=== PATIENT | female | born 1960 ===

== ENCOUNTER 2020-05-10 17:02 | Outpatient (REF) | payer OTHER, MEDICAID, SELFPAY | END 2020-05-10 17:03 | disposition home or self-care (01) | LOC: HO.LAB 17:02 | PROVIDERS: Visit Provider Internal Medicine | DX: Z20.828 Contact with and (suspected) exposure to other viral communicable diseases (principal) | CPT/HCPCS: 87635 ==

== ENCOUNTER 2020-10-14 10:05 | Outpatient (REF) | payer OTHER, MEDICAID, SELFPAY ==
--- NOTE | ~2020-10-14 | XR_ITS ---
EXAMINATION: XR KNEE, LEFT TWO-VIEW XR KNEE, RIGHT TWO-VIEW CLINICAL INFORMATION: Pain. COMPARISON: 07/20/2013 left knee. TECHNIQUE: AP and lateral views of each knee. FINDINGS: LEFT KNEE: Upright AP and lateral views of the left knee performed. The left knee joint spaces are maintained. No significant spurring is seen about the medial or lateral joint space compartments. There is mild spurring undersurface of the patella. No left knee effusion is seen. There are spurs about the patellar sites of insertion of Achilles and patellar tendons. No destructive bony lesions. RIGHT KNEE: AP and lateral views of the right knee do not demonstrate any evidence of acute fracture or dislocation. Joint spaces are maintained. No effusion is seen. Patellar spurs sites of insertion of quadriceps and patellar tendons present. XR/XR knee LT 2V IMPRESSION: Mild left knee patellofemoral degenerative change. No significant bony abnormality of the right knee. No knee effusions.
--- NOTE | ~2020-10-14 | XR_ITS ---
EXAMINATION: XR KNEE, LEFT TWO-VIEW XR KNEE, RIGHT TWO-VIEW CLINICAL INFORMATION: Pain. COMPARISON: 07/20/2013 left knee. TECHNIQUE: AP and lateral views of each knee. FINDINGS: LEFT KNEE: Upright AP and lateral views of the left knee performed. The left knee joint spaces are maintained. No significant spurring is seen about the medial or lateral joint space compartments. There is mild spurring undersurface of the patella. No left knee effusion is seen. There are spurs about the patellar sites of insertion of Achilles and patellar tendons. No destructive bony lesions. RIGHT KNEE: AP and lateral views of the right knee do not demonstrate any evidence of acute fracture or dislocation. Joint spaces are maintained. No effusion is seen. Patellar spurs sites of insertion of quadriceps and patellar tendons present. XR/XR knee RT 2V IMPRESSION: Mild left knee patellofemoral degenerative change. No significant bony abnormality of the right knee. No knee effusions.
[2020-10-14 10:42] LABS: MANUAL DIFF FLAG NO
[2020-10-14 10:49] LABS: Basophils Absolute Auto 0.1 X10*3/uL (0.0-0.2); Basophils Percent Auto 0.7 % (0-2); Eosinophils Absolute Auto 0.2 X10*3/uL (0.0-0.4); Eosinophils Percent Auto 2.3 % (0-4); Hematocrit 41.3 % (37-47); Hemoglobin 13.7 g/dl (12.0-16.0); Imm Gran Abs Auto 0.02 X10*3/uL (0.00-0.03); Imm Gran Pct Auto 0.3 % (0.0-0.4); Lymphocytes Absolute Auto 2.7 X10*3/uL (1.2-4.9); Lymphocytes Percent Auto 38.7 % (20-40); Mean Corpuscular HGB Conc 33.2 g/dl (31.0-35.0); Mean Corpuscular Hemoglobin 29.8 pg (27.0-33.0); Mean Corpuscular Volume 89.8 fL (80-98); Mean Platelet Volume 11.4 fL (9.4-12.3); Monocytes Absolute Auto 0.4 X10*3/uL (0.1-1.2); Monocytes Percent Auto 5.7 % (2-11); Neutrophils Absolute Auto 3.7 X10*3/uL (2.0-8.3); Neutrophils Percent Auto 52.3 % (45-73); Platelet Count 384 X10*3/uL (160-400); Red Cell Distribution Width 12.2 % (11.0-16.0)
[2020-10-14 11:15] LABS: Alanine Aminotransferase 7 U/L (0-31); Albumin Level 4.5 g/dL (3.5-5.0); Alkaline Phosphatase 129 U/L (39-117); Anion Gap 15 (12-20); Aspartate Amino Transferase 15 U/L (5-31); Bilirubin Total 0.3 mg/dL (0.0-1.0); Blood Urea Nitrogen 14 mg/dL (9-16); Calcium 9.7 mg/dL (8.4-10.2); Carbon Dioxide 25 mmol/L (22-29); Chloride 106 mmol/L (96-108); Cholesterol 215 mg/dL; Estimated Glomerular Filt Rate > 60; Glucose Random 111 mg/dL (60-115); HDL Cholesterol 63 mg/dL; LDL Cholesterol Calculated 125 mg/dl; Potassium 4.1 mmol/L (3.3-5.1); Sodium 142 mmol/L (135-145); Total Protein 7.3 g/dL (6.5-8.0); Triglycerides 135 mg/dL
[2020-10-14 11:37] LABS: Free T4 (Free Thyroxine) 1.08 ng/dL (0.71-1.85); Thyroid Stimulating Hormone 1.66 uIU/mL (0.32-4.0); Vitamin D 25-OH Total 15.6 ng/mL (>30)
[2020-10-14 12:01] LABS: Folate 17.1 ng/mL (> or = 4.0); Vitamin B12 428 pg/mL (200-900)
== END 2020-10-14 10:06 | disposition home or self-care (01) ==
LOC: HO.LAB 10:05
PROVIDERS: PCP Internal Medicine; Visit Provider Internal Medicine
DX: M25.561 Pain in right knee (principal); M25.562 Pain in left knee; I10 Essential (primary) hypertension; E78.00 Pure hypercholesterolemia, unspecified
CPT/HCPCS: 36415; 73560; 80053; 80061; 82306; 82607; 82746; 84439; 84443; 85025

== ENCOUNTER 2020-10-17 10:31 | Outpatient (REF) | payer OTHER, MEDICAID, SELFPAY ==
--- NOTE | ~2020-10-17 | MM_ITS ---
EXAMINATION: MM SCREENING DIGITAL BREAST TOMOSYNTHESIS, BILATERAL CLINICAL INFORMATION: Screening. Asymptomatic. Prior history benign left breast surgery 1999. The lifetime risk of breast cancer based on the Tyrer-Cuzick Model is 7%. COMPARISON: Outside mammography 10/03/2018, 06/17/2015, 06/11/2014 ([place]) TECHNIQUE: Digital breast tomosynthesis is performed in both the craniocaudal and mediolateral oblique views along with computer-aided detection (CAD). Synthesized 2D images are generated from the tomosynthesis. FINDINGS: There are scattered areas of fibroglandular density (ACR BI-RADS breast composition Category b). There are no significant masses, abnormal calcifications, or other abnormalities. Parenchymal pattern is similar to prior outside study. No developing density. MM/MM tomosynthesis screening BI IMPRESSION: No mammographic evidence of malignancy. ASSESSMENT: BI-RADS 1: Negative RECOMMENDATION: Routine annual mammography screening. This patient's information was entered into a reminder system with a target due date for their next mammogram.
== END 2020-10-17 10:32 | disposition home or self-care (01) ==
LOC: HO.MAMMO 10:31
PROVIDERS: Visit Provider Internal Medicine
DX: Z12.31 Encounter for screening mammogram for malignant neoplasm of breast (principal)
CPT/HCPCS: 77063; 77067

== ENCOUNTER → 2021-02-28 11:48 | Outpatient (BNVA) | payer OTHER, MEDICAID, SELFPAY | PROVIDERS: PCP Internal Medicine; Visit Provider Dietitian, Registered ==

== ENCOUNTER 2021-03-12 15:56 | Outpatient (REF) | payer OTHER, MEDICAID, SELFPAY ==
--- NOTE | ~2021-03-12 | MR_ITS ---
EXAMINATION: MR KNEE WITHOUT CONTRAST, RIGHT CLINICAL INFORMATION: Right knee pain. COMPARISON: Radiograph dated 10/14/2020. TECHNIQUE: MRI of the knee without contrast was performed using routine sequences on a high-field scanner. FINDINGS: MENISCI: Medial Meniscus: There is minimal degenerative intrasubstance signal in the medial meniscus. No tears. Lateral Meniscus: Intact. LIGAMENTS: Cruciate: Intact. Collateral: Intact. EXTENSOR MECHANISM: Patellar enthesopathic spurs are present at the quadriceps tendon insertion and patellar tendon origin. No tendinosis. Quadriceps and patellar tendons are intact. ARTICULAR CARTILAGE/BONE: Patellofemoral Compartment: Small chondral fissures are present at the medial patellar and medial trochlear facets. No significant subchondral edema. Articular cartilage is otherwise well preserved. Medial Compartment: Normal. Lateral Compartment: Normal. JOINT FLUID AND BURSAE: No joint effusion. Small López's cyst. No loose bodies. No bursitis. MR/MR knee RT wo con IMPRESSION: 1. Minimal degenerative intrasubstance signal in the medial meniscus. No tears. 2. Small chondral fissures at the medial facets of the patellofemoral compartment. Articular cartilage is otherwise well preserved. 3. Intact ligaments. 4. Small López's cyst.
== END 2021-03-12 15:57 | disposition home or self-care (01) ==
LOC: HO.MRI 15:56
PROVIDERS: PCP Internal Medicine; Visit Provider Internal Medicine
DX: G89.29 Other chronic pain (principal); M25.561 Pain in right knee; M25.562 Pain in left knee
CPT/HCPCS: 73721

== ENCOUNTER → 2021-03-21 08:49 | Outpatient (BNVA) | payer OTHER, MEDICAID, SELFPAY | PROVIDERS: PCP Internal Medicine; Visit Provider Physician Assistant ==

== ENCOUNTER 2021-03-27 11:15 | Outpatient (REF) | payer OTHER, MEDICAID, SELFPAY | END 2021-03-27 11:16 | disposition home or self-care (01) | LOC: HO.LAB 11:15 | PROVIDERS: PCP Internal Medicine; Visit Provider Internal Medicine | DX: Z20.822 Contact with and (suspected) exposure to COVID-19 (principal) | CPT/HCPCS: C9803; U0003; U0005 ==

== ENCOUNTER → 2021-03-31 09:55 | Outpatient (BNVA) | payer OTHER, MEDICAID, SELFPAY | PROVIDERS: PCP Internal Medicine; Visit Provider Orthopaedic Surgery | DX: M65.331 Trigger finger, right middle finger (principal); R20.0 Anesthesia of skin; R20.2 Paresthesia of skin | CPT/HCPCS: 20550; J1100 ==

== ENCOUNTER → 2021-04-01 15:23 | Outpatient (BNVA) | payer OTHER, MEDICAID, SELFPAY | PROVIDERS: PCP Internal Medicine; Visit Provider Surgery Vascular Surgery ==

== ENCOUNTER → 2021-04-14 13:22 | Outpatient (BNVA) | payer OTHER, MEDICAID, SELFPAY | PROVIDERS: PCP Internal Medicine; Visit Provider Dietitian, Registered | DX: E66.9 Obesity, unspecified (principal); Z68.34 Body mass index [BMI] 34.0-34.9, adult | CPT/HCPCS: 97802 ==

== ENCOUNTER 2021-05-01 14:00 | Outpatient (RCR) | payer OTHER, MEDICAID, SELFPAY ==
--- NOTE | 2021-04-16 15:15 | MHC.PT.EP ---
[facility] [place] Office [place] Office [place] Office [address] Phil Lucio [address] [phone] F: [phone] F: [phone] F: [phone] F: [phone] Physical Therapy Plan of Care Date of Evaluation: Date of Surgery: Diagnosis: OSTEOARTHRITIS RIGHT KNEE Assessment: 60 YO FEMALE REF TO PT FOR Rt KNEE OA- OBJECTIVE FINDINGS INCLUDE : LIMITED ROM IN Rt KNEE, DECR STRENGTH IN ADDI LEs, (+) PF DYSF; AND PAIN IN MED/ LAT KNEE Jt LINE. FUNCTIONAL LIMITATIONS INCLUDE DIFFIC W STAIR MGMT, LIMITED STANDING ZACARIAS, WALKING LIMITED TO SORT DISTANCES. Pt IS PART OF [facility] [place] MGMT PROGRAM AND HAS BEEN UNABLE TO ADV W FITNESS PORTION OF EXER. Frequency and Duration: The patient will be seen 2x WK x 4 WKS Short Term Goals: --Pt'S Rt KNEE PAIN DECR TO 2-3/10 W REG ADLs IN 2 WKS --Pt DEMON IMPROVED STAIR MGMT TECHN IN 2 WKS --Pt DEMON IMPROVED AROM Rt KNEE IN 1 WK Residential Goals: --Pt DEMON WFL FUNCT SQUAT AND 2:2 SIMUL HOUSE CHORES W DECENT TECHN IN 4 WKS --Pt INDEP W HEP AND SX MGMT TECHN FOR Rt KNEE IN 4 WKS --Pt DEMON IMPROVED ACTIVITY ZACARIAS AND INITIATE A FITNESS WALKING/ TREADMILL PROGRAM EVIDENT W IMRPOVED LEFT BY AT LEAST 10 POINTS IN 4 WKS Treatment Plan: Modalities to reduce pain, spasms and effusion. Manual therapy to restore motion and function. Therapeutic exercise to improve strength and flexibility. Neuromuscular re-education for posture and balance. Therapeutic activities to return to functional activities of daily living. Electronically signed by: Maribell Lopes,PT Please sign and return to therapist. Thank you for your referral.
--- NOTE | 2021-06-03 08:37 | MHC.PT.DC ---
[facility] [place] Office [place] Office [place] Office [address] Phil Lucio 140 [facility] [phone] F: [phone] F: [phone] F: [phone] F: [phone] Physical Therapy Discharge Report Diagnosis: OSTEOARTHRITIS RIGHT KNEE Date of Surgery: Date of Evaluation: 04/16/21 Date of Discharge: 06/03/21 Treatments to Date: 2 Cancellations to Date: 0 No Shows to Date: 0 Discharge Status: Achieved Goals Improved Function Patient Elected to Stop Discharge Summary: Pt HAS A THOROUGH HEP TO ADDRESS STRENGTH, STABILITY, AND PROPRIOCEPTION IN RIGHT LE- SHE D/C HERSELF DUE TO [place]ING [place]- ENCOURAGED Pt TO REMAIN COMPLIANT W HEP AND ENHANCE HER SELF- SX MANAGEMENT. SHE MET HER PT GOALS TO MAX POTENTIAL AT THIS TIME. Electronically signed by: Maribell Lopes,PT Please sign and return to therapist. Thank you for your referral.
== END 2021-06-03 08:39 | disposition home or self-care (01) ==
LOC: HO.PT 14:00
PROVIDERS: PCP Internal Medicine; Visit Provider Physician Assistant
DX: M17.11 Unilateral primary osteoarthritis, right knee (principal)
CPT/HCPCS: 97110; 97140; 97162

== ENCOUNTER 2021-05-06 10:23 | Outpatient (REF) | payer OTHER, MEDICAID, SELFPAY ==
--- NOTE | ~2021-05-06 | US_ITS ---
EXAMINATION: BILATERAL LOWER EXTREMITY VENOUS ULTRASOUND (Reflux Exam) CLINICAL INDICATION: This is a 60-year-old female with venous insufficiency and varicose veins. COMPARISON: None. TECHNIQUE: Color flow triplex imaging and compression Doppler was performed to evaluate both the deep and the superficial systems bilaterally. To evaluate the superficial system, the examination was performed in the upright position. Color-flow Doppler ultrasound and compression ultrasound were utilized. In addition, maneuvers were utilized to demonstrate reflux. FINDINGS: 1. DEEP VENOUS ULTRASOUND OF THE RIGHT LOWER EXTREMITY: Common Femoral Vein: Compressible, normal respiratory variation and augmented flow. Femoral vein: Compressible, normal color flow and augmentation. Popliteal Vein: Compressible, normal augmentation. Deep Reflux: There is no evidence of reflux in the deep system in either the common femoral vein or the popliteal vein. . There is no evidence of a López's cyst. 2. SUPERFICIAL ULTRASOUND WITH DOPPLER OF RIGHT LOWER EXTREMITY GREAT SAPHENOUS VEIN: Saphenofemoral junction: 0.5 cm. There is no reflux at the junction. Mid thigh: 0.3 cm. The reflux time is 3152 ms. Above knee: 0.2 cm. There is no reflux. Below knee: 0.2 cm. The reflux time is 1140 ms. Mid calf: 0.2 cm there is no reflux at this level and below. Ankle: 0.2 cm GSV REFLUX: There is isolated reflux in the proximal and mid thigh, respectively. There is also isolated reflux below the knee that is isolated. DUPLICATED GREAT SAPHENOUS VEIN: There is a 0.4 cm duplicated right lateral great saphenous vein without reflux. SMALL SAPHENOUS VEIN: Upper: 0.4 cm Lower: 0.2 cm SSV REFLUX: No evidence of reflux. VEIN OF GIACOMINI: None Imaged. PERFORATORS: There is a 0.1 cm mid calf exhibit builder without reflux. VARICOSITIES: There are 0.5 cm mid thigh varicose veins with reflux time of 3212 ms. 3. DEEP VENOUS ULTRASOUND OF THE LEFT LOWER EXTREMITY: Common Femoral Vein: Compressible, normal respiratory variation and augmented flow. Femoral vein: Compressible, normal color flow and augmentation. Popliteal Vein: Compressible, normal augmentation. Deep Reflux: There is no evidence of reflux in the deep system in either the common femoral vein or the popliteal vein. There is no evidence of a López's cyst. 4. SUPERFICIAL ULTRASOUND WITH DOPPLER OF LEFT LOWER EXTREMITY GREAT SAPHENOUS VEIN: Saphenofemoral junction: 0.5 cm Mid thigh: 0.3 cm Above knee: 0.2 cm Below knee: 0.1 cm Mid calf: 0.2 cm Ankle: 0.2 cm GSV REFLUX: No evidence of reflux. DUPLICATED GREAT SAPHENOUS VEIN: There is a 0.4 cm duplicated lateral great saphenous vein without evidence of reflux. SMALL SAPHENOUS VEIN: Upper: 0.2 cm Lower: 0.2 cm SSV REFLUX: No evidence of reflux. VEIN OF GIACOMINI: None Imaged. PERFORATORS: None Imaged VARICOSITIES: None Imaged US/US venous duplex LE BI IMPRESSION: 1. There is a patent right great saphenous vein with isolated reflux in the proximal thigh and mid thigh but not reflux at the junction. 2. There is a patent duplicated right lateral great saphenous vein without reflux. 3. There is a patent right small saphenous vein without evidence of reflux. 4. There are right mid thigh varicose veins measuring 0.5 cm with reflux. 5. There is a patent left great saphenous vein without evidence of reflux. 6. There is a patent duplicated left lateral great saphenous vein without reflux. 7. There is a patent left small saphenous vein without evidence of reflux.
== END 2021-05-06 10:24 | disposition home or self-care (01) ==
LOC: HO.US 10:23
PROVIDERS: PCP Internal Medicine; Visit Provider Surgery Vascular Surgery
DX: I83.893 Varicose veins of bilateral lower extremities with other complications (principal); I83.11 Varicose veins of right lower extremity with inflammation
CPT/HCPCS: 93970

== ENCOUNTER → 2021-05-29 14:03 | Outpatient (BNVA) | payer OTHER, MEDICAID, SELFPAY | PROVIDERS: PCP Internal Medicine; Visit Provider Surgery Vascular Surgery ==

== ENCOUNTER 2021-06-04 10:03 | Outpatient (REF) | payer OTHER, MEDICAID, SELFPAY ==
--- NOTE | 2021-06-04 10:06 | EMG_ITS ---
This is a 60-year-old woman with right upper extremity pain and numbness. PHYSICAL EXAMINATION: On examination, she is alert and oriented with normal intellectual functions. Cranial nerves II through XII are normal. Muscle tone and strength are normal in all 4 extremities. Deep tendon reflexes symmetrical. No Tinel or Phalen sign. IMPRESSION: Rule out carpal tunnel syndrome. Nerve conduction EMG study: Normal electrodiagnostic study of the right upper extremity with no evidence of carpal tunnel syndrome or nerve entrapment. Normal EMG of the right C5-T1 innervated muscles. MD JABIER Duran/MT / [id number]
== END 2021-06-04 10:04 | disposition home or self-care (01) ==
LOC: HO.NEURO 10:03
PROVIDERS: Visit Provider Orthopaedic Surgery
DX: R20.0 Anesthesia of skin (principal); R20.2 Paresthesia of skin; M65.331 Trigger finger, right middle finger
CPT/HCPCS: 95885; 95910

== ENCOUNTER 2021-06-10 11:53 | Outpatient (REF) | payer OTHER, MEDICAID, SELFPAY ==
[2021-06-11 11:52] LABS: H Pylori Breath Test Negative (Negative)
== END 2021-06-10 11:54 | disposition home or self-care (01) ==
LOC: HO.LNP 11:53
PROVIDERS: PCP Internal Medicine; Visit Provider Nurse Practitioner Family
DX: K21.9 Gastro-esophageal reflux disease without esophagitis (principal); K59.00 Constipation, unspecified; K58.9 Irritable bowel syndrome, unspecified; R20.0 Anesthesia of skin; R20.2 Paresthesia of skin; M79.641 Pain in right hand
CPT/HCPCS: 83013

== ENCOUNTER → 2021-06-16 13:58 | Outpatient (BNVA) | payer OTHER, MEDICAID, SELFPAY | PROVIDERS: PCP Internal Medicine; Visit Provider Dietitian, Registered | DX: E66.9 Obesity, unspecified (principal); Z68.34 Body mass index [BMI] 34.0-34.9, adult | CPT/HCPCS: 97803 ==

== ENCOUNTER → 2021-06-27 10:37 | Outpatient (BNVA) | payer OTHER, MEDICAID, SELFPAY | PROVIDERS: PCP Internal Medicine; Visit Provider Surgery Vascular Surgery | DX: I83.11 Varicose veins of right lower extremity with inflammation (principal) | CPT/HCPCS: 36482 ==

== ENCOUNTER 2021-06-30 14:31 | Outpatient (REF) | payer OTHER, MEDICAID, SELFPAY ==
--- NOTE | ~2021-06-30 | US_ITS ---
EXAMINATION: US VENOUS ULTRASOUND WITH DOPPLER LOWER EXTREMITY, RIGHT CLINICAL INFORMATION: Pain in right leg status post right GSP, Venaseal COMPARISON: None TECHNIQUE: Ultrasound of the deep veins is performed from the hip to the calf with compression sonography and color and pulse Doppler assessment. Spectral analysis with color-flow imaging is performed. FINDINGS: There is normal venous compression and respiratory variation and augmented flow. The visualized common femoral vein, superficial femoral vein, profunda femoral vein, popliteal vein, and the trifurcation region shows no evidence of deep venous thrombosis. There is no significant popliteal fossa cyst. There is thrombus visualized in the right greater saphenous vein status post venous radiofrequency ablation. The thrombus is 0.71 cm from the common femoral venous junction. If the patient's symptoms persist, followup ultrasound in 5 days 7 days might be of value to exclude proximal propagation from a non-visualized calf vein. US/US venous duplex LE RT IMPRESSION: No DVT demonstrated in the right lower extremity. There is thrombus visualized in the right greater saphenous vein status post radiofrequency ablation.
== END 2021-06-30 14:32 | disposition home or self-care (01) ==
LOC: HO.HMGCX 14:31
PROVIDERS: PCP Internal Medicine; Visit Provider Surgery Vascular Surgery
DX: M79.604 Pain in right leg (principal)
CPT/HCPCS: 93971

== ENCOUNTER 2021-07-08 12:33 | Outpatient (REF) | payer OTHER, MEDICAID, SELFPAY ==
--- NOTE | ~2021-07-08 | XR_ITS ---
EXAMINATION: XR FINGER, RIGHT CLINICAL INFORMATION: Right hand pain. COMPARISON: None. TECHNIQUE: PA view of the right hand and AP and oblique views of the right long finger. FINDINGS: No acute fracture or malalignment. There is mild osteoarthritis at the PIP joint with small marginal osteophytes. Joint space appears relatively well preserved. Soft tissues are unremarkable. More mild osteoarthritis is present at the other interphalangeal joints. Mild generalized bone demineralization. Soft tissues are unremarkable. XR/XR hand RT min 3V IMPRESSION: Mild osteoarthritis in the long finger DIP joint. No acute osseous findings.
== END 2021-07-08 12:34 | disposition home or self-care (01) ==
LOC: HO.HOSX 12:33
PROVIDERS: Visit Provider Orthopaedic Surgery
DX: M79.641 Pain in right hand (principal); I83.11 Varicose veins of right lower extremity with inflammation; F41.8 Other specified anxiety disorders; Z88.0 Allergy status to penicillin; Z88.8 Allergy status to other drugs, medicaments and biological substances
CPT/HCPCS: 73130

== ENCOUNTER → 2021-07-16 11:43 | Outpatient (BNVA) | payer OTHER, MEDICAID, SELFPAY | PROVIDERS: PCP Internal Medicine; Referring Provider Internal Medicine; Visit Provider Nurse Practitioner Family ==

== ENCOUNTER 2021-08-08 10:02 | Outpatient (REF) | payer OTHER, MEDICAID, SELFPAY ==
[2021-08-08 17:11] LABS: CT PCR NOT DETECTED (Not Detect.); NG PCR NOT DETECTED (Not Detect.)
[2021-08-14 05:51] LABS: HPV mRNA E6/E7 rflx Not Detected (Not Detected)
== END 2021-08-08 10:03 | disposition home or self-care (01) ==
LOC: HO.LAB 10:02
PROVIDERS: PCP Internal Medicine; Visit Provider Advanced Practice Midwife
DX: Z01.419 Encounter for gynecological examination (general) (routine) without abnormal findings (principal); Z11.51 Encounter for screening for human papillomavirus (HPV); Z11.3 Encounter for screening for infections with a predominantly sexual mode of transmission
CPT/HCPCS: 87491; 87591; 87624; 88142

== ENCOUNTER → 2021-09-30 14:26 | Outpatient (BNVA) | payer OTHER, MEDICAID, SELFPAY | PROVIDERS: PCP Internal Medicine; Visit Provider Dietitian, Registered | DX: E66.9 Obesity, unspecified (principal); Z71.3 Dietary counseling and surveillance | CPT/HCPCS: 97803 ==

== ENCOUNTER 2021-10-09 10:08 | Outpatient (REF) | payer OTHER, MEDICAID, SELFPAY ==
--- NOTE | ~2021-10-09 | US_ITS ---
EXAMINATION: US ABDOMEN COMPLETE CLINICAL INFORMATION: Elevated LFTs. COMPARISON: CT abdomen and pelvis 12/28/2011. X-ray abdomen KUB 12/21/2011. TECHNIQUE: Real-time imaging of the abdominal viscera. FINDINGS: PANCREAS: Not adequately delineated. No free fluid in the region. ABDOMINAL AORTA: The proximal, mid, and distal segments are normal in caliber. INFERIOR VENA CAVA: Visualized portions are normal. LIVER: The liver is normal in size. The liver contour is normal. Increased echogenicity overall may be consistent with fatty change. No focal hepatic lesion. There is no intrahepatic biliary duct dilatation seen. GALLBLADDER: Normal. The gallbladder is physiologically distended without evidence of stones, sludge, polyps, wall thickening or pericholecystic fluid. COMMON BILE DUCT: Normal in caliber measuring 0.4 cm in diameter. RIGHT KIDNEY: Normal. No hydronephrosis. No renal calculi or focal parenchymal lesions. The kidney measures 10.9 cm in maximum dimension. LEFT KIDNEY: Normal. No hydronephrosis. No renal calculi or focal parenchymal lesions. The kidney measures 11.6 cm in maximum dimension. SPLEEN: Normal. The spleen measures 8.8 cm in maximum dimension. FREE FLUID: None. US/US abdomen complete IMPRESSION: Liver is overall hyperechoic which may be consistent with fatty change. There is no evidence of cholelithiasis or cholecystitis. No free fluid.
[2021-10-09 11:06] LABS: MANUAL DIFF FLAG NO
[2021-10-09 11:34] LABS: Basophils Absolute Auto 0.1 X10*3/uL (0.0-0.2); Basophils Percent Auto 0.7 % (0-2); Eosinophils Absolute Auto 0.2 X10*3/uL (0.0-0.4); Eosinophils Percent Auto 2.1 % (0-4); Hematocrit 41.5 % (37.0-47.0); Hemoglobin 13.4 g/dl (12.0-16.0); Imm Gran Abs Auto 0.02 X10*3/uL (0.00-0.03); Imm Gran Pct Auto 0.3 % (0.0-0.4); Lymphocytes Absolute Auto 2.7 X10*3/uL (1.2-4.9); Lymphocytes Percent Auto 35.6 % (20-40); Mean Corpuscular HGB Conc 32.3 g/dl (31.0-35.0); Mean Corpuscular Hemoglobin 29.5 pg (27.0-33.0); Mean Corpuscular Volume 91.4 fL (80.0-98.0); Mean Platelet Volume 11.7 fL (9.4-12.3); Monocytes Absolute Auto 0.4 X10*3/uL (0.1-1.2); Monocytes Percent Auto 5.6 % (2-11); Neutrophils Absolute Auto 4.2 x10*3/uL (2.0-8.3); Neutrophils Percent Auto 55.7 % (45-73); Platelet Count 381 X10*3/uL (160-400); Red Blood Count 4.54 X10*6/uL (4.20-5.50); Red Cell Distribution Width 12.5 % (11.0-16.0); White Blood Count 7.6 X10*3/uL (4.8-10.8)
[2021-10-09 11:41] LABS: Estimated Average Glucose 126 mg/dL
[2021-10-09 11:51] LABS: Appearance Urine HAZY; Color Urine YELLOW; Glucose Urine UA NEG (NEG); Leukocyte Esterase Urine NEG (NEG); Nitrite Urine NEG (NEG); Urine Blood TRACE (NEG); Urine Ketones NEG (NEG); Urine Protein NEG (NEG-TRACE)
[2021-10-09 12:13] LABS: Bacteria Urine 2+ /LPF; Mucus Urine 1+ /LPF; RBC Urine 0 /HPF (0); Squamous Epithelial Cell Urine 2+ /LPF; WBC Urine 0 /HPF (0-4)
[2021-10-09 12:47] LABS: Folate 17.7 ng/mL (> or = 4.0); Vitamin B12 596 pg/mL (200-900)
[2021-10-09 14:08] LABS: Alanine Aminotransferase 7 U/L (0-31); Albumin Level 4.3 g/dL (3.5-5.0); Alkaline Phosphatase 120 U/L (39-117); Anion Gap 12 (12-20); Aspartate Amino Transferase 14 U/L (5-31); Bilirubin Total 0.5 mg/dL (0.0-1.0); Blood Urea Nitrogen 10 mg/dL (9-16); Calcium 10.1 mg/dL (8.4-10.2); Carbon Dioxide 25 mmol/L (22-29); Chloride 109 mmol/L (96-108); Cholesterol 190 mg/dL; Estimated Glomerular Filt Rate > 60; Glucose Random 106 mg/dL (60-115); HDL Cholesterol 56 mg/dL; LDL Cholesterol Calculated 110 mg/dl; Potassium 4.4 mmol/L (3.3-5.1); Sodium 142 mmol/L (135-145); Total Protein 7.1 g/dL (6.5-8.0); Triglycerides 121 mg/dL
[2021-10-09 14:37] LABS: Free T4 (Free Thyroxine) 1.08 ng/dL (0.71-1.85); Thyroid Stimulating Hormone 1.42 uIU/mL (0.32-4.0); Vitamin D 25-OH Total 15.2 ng/mL (>30)
== END 2021-10-09 10:09 | disposition home or self-care (01) ==
LOC: HO.US 10:08
PROVIDERS: PCP Internal Medicine; Visit Provider Internal Medicine
DX: R10.11 Right upper quadrant pain (principal); R79.89 Other specified abnormal findings of blood chemistry; E78.00 Pure hypercholesterolemia, unspecified; I10 Essential (primary) hypertension
CPT/HCPCS: 36415; 76700; 80053; 80061; 81001; 82306; 82607; 82746; 83036; 84439; 84443; 85025

== ENCOUNTER → 2021-10-14 13:02 | Outpatient (BNVA) | payer OTHER, MEDICAID, SELFPAY | PROVIDERS: PCP Internal Medicine; Visit Provider Surgery Vascular Surgery | DX: Z13.89 Encounter for screening for other disorder (principal) ==

== ENCOUNTER 2021-10-28 13:15 | Outpatient (REF) | payer OTHER, MEDICAID, SELFPAY ==
--- NOTE | ~2021-10-28 | MM_ITS ---
EXAMINATION: MM SCREENING DIGITAL BREAST TOMOSYNTHESIS, BILATERAL CLINICAL INFORMATION: Screening. Asymptomatic. Benign left breast surgery, 1999. The lifetime risk of breast cancer based on the Tyrer-Cuzick Model is 6%. COMPARISON: Mammography: 10/17/2020, 10/03/2018, 06/17/2015 TECHNIQUE: Digital breast tomosynthesis is performed in both the craniocaudal and mediolateral oblique views along with computer-aided detection (CAD). Synthesized 2D images are generated from the tomosynthesis. FINDINGS: There are scattered areas of fibroglandular density (ACR BI-RADS breast composition Category b). There are no significant masses, abnormal calcifications, or other abnormalities. There are scattered minor asymmetries similar to prior studies. There is fine fibronodular pattern similar to prior exams. No significant changes. MM/MM tomosynthesis screening BI IMPRESSION: No mammographic evidence of malignancy. ASSESSMENT: BI-RADS 2: Benign RECOMMENDATION: Routine annual mammography screening. This patient's information was entered into a reminder system with a target due date for their next mammogram.
== END 2021-10-28 13:16 | disposition home or self-care (01) ==
LOC: HO.MAMMO 13:15
PROVIDERS: PCP Internal Medicine; Visit Provider Internal Medicine
DX: Z12.31 Encounter for screening mammogram for malignant neoplasm of breast (principal)
CPT/HCPCS: 77063; 77067

== ENCOUNTER → 2021-11-07 10:33 | Outpatient (BNVA) | payer OTHER, MEDICAID, SELFPAY | PROVIDERS: PCP Internal Medicine; Visit Provider Surgery Vascular Surgery | DX: I83.11 Varicose veins of right lower extremity with inflammation (principal) | CPT/HCPCS: 37765 ==

== ENCOUNTER → 2021-11-20 15:12 | Outpatient (BNVA) | payer OTHER, MEDICAID, SELFPAY | PROVIDERS: PCP Internal Medicine; Visit Provider Surgery Vascular Surgery | DX: I83.11 Varicose veins of right lower extremity with inflammation (principal) ==

== ENCOUNTER 2021-12-12 10:29 | Outpatient (REF) | payer OTHER, MEDICAID, SELFPAY ==
[2021-12-12 11:03] LABS: COVID-19 Test Negative (Negative); IDNOW Serial# 08D9AD1C
== END 2021-12-12 10:30 | disposition home or self-care (01) ==
LOC: HO.LAB 10:29
PROVIDERS: Visit Provider Internal Medicine
DX: Z20.822 Contact with and (suspected) exposure to COVID-19 (principal)
CPT/HCPCS: 87635; C9803

== ENCOUNTER 2022-01-20 16:03 | Outpatient (REF) | payer OTHER, MEDICAID, SELFPAY ==
[2022-01-20 17:23] LABS: Lipase 20 U/L (8-78)
[2022-01-25 22:17] LABS: Alk.Phos Iso. Macrohepatic 0 % (<=0); Alk.Phos Isoenzymes Bone 59 % (28-66); Alk.Phos Isoenzymes Intest 0 % (1-24); Alk.Phos Isoenzymes Liver 41 % (25-69); Alk.Phos Isoenzymes Placental 0 % (<=0); Alk.Phos Isoenzymes Total 104 U/L (37-153)
== END 2022-01-20 16:04 | disposition home or self-care (01) ==
LOC: HO.LAB 16:03
PROVIDERS: PCP Internal Medicine; Visit Provider Nurse Practitioner Family
DX: R74.8 Abnormal levels of other serum enzymes (principal); R10.9 Unspecified abdominal pain
CPT/HCPCS: 36415; 83690; 84080

== ENCOUNTER 2022-03-03 12:03 | Emergency (ER) | payer OTHER, MEDICAID, SELFPAY ==
--- NOTE | ~2022-03-03 | XR_ITS ---
EXAMINATION: XR CHEST CLINICAL INFORMATION: Chest pain COMPARISON: None TECHNIQUE: 2 views of the chest were obtained. FINDINGS: No significant abnormality is noted involving the heart, lungs, mediastinum, bony thorax or soft tissues. XR/XR chest 2V IMPRESSION: Unremarkable examination.
[2022-03-03 12:13] VITALS: BP 143/84; PULSE 84; RESP 18; TEMP 36.3; O2SAT 98; BMI 34.0
[2022-03-03 12:37] LABS: Appearance Urine CLEAR; Color Urine YELLOW; Glucose Urine UA Negative (Negative); Leukocyte Esterase Urine Negative (Negative); Nitrite Urine Negative (Negative); PH 6.5 (5.0-8.0); Urine Blood Trace (Negative); Urine Ketones Negative (Negative); Urine Protein Negative (Neg-Trace)
[2022-03-03 12:52] VITALS: BP 128/62; PULSE 75; RESP 12; TEMP 36.6; O2SAT 99
[2022-03-03 12:52] LABS: RBC Urine 0-2 /HPF (0-2); Squamous Epithelial Cell Urine 0-2 /HPF; WBC Urine 0-5 /HPF (0-5)
[2022-03-03 12:56] LABS: Bacteria Urine Trace (None Seen); Hyaline Casts Urine 0-2 /LPF
--- NOTE | 2022-03-03 13:40 | ED_ITS ---
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 Patient denies any shortness of breath, cough, fevers, leg swelling or leg pain. Patient reports pain is worsened with deep breathing. Also some slight chest discomfort with no associated shortness of breath, nausea, diaphoresis, dizziness or palpitations. Patient denies any recent travel or sick contact. Patient has no history of PE or DVT. Patient is taking meloxicam with continued symptoms. Patient denies any incontinence of urine, weakness, numbness or tingling of the extremities. Related Data Home Medications Medication Instructions Recorded Confirmed brimonidine 0.2 % eye drops 1 drp ophthalmic (eye) Q12H 04/01/21 02/26/22 Previous Rx's Medication Instructions Recorded sumatriptan succinate 100 mg tablet 100 mg PO .COMPLEX PRN migraine 04/11/21 headache 30 days #14 tabs meloxicam 7.5 mg tablet 7.5 mg PO DAILY 90 days #90 tabs 08/15/21 budesonide-formoterol HFA 160 2 puff inhalation BID #10.2 grams 09/11/21 mcg-4.5 mcg/actuation aerosol inhaler (Symbicort) topiramate 50 mg tablet 50 mg PO BID 90 days #270 tabs 09/11/21 docusate sodium 100 mg capsule 100 mg PO BEDTIME #30 caps 10/28/21 famotidine 40 mg tablet 40 mg PO BEDTIME #30 tabs 12/01/21 omeprazole 40 mg capsule,delayed 40 mg PO DAILY #90 caps 12/01/21 release polyethylene glycol 3350 17 17 g PO DAILY PRN constipation 01/01/22 gram/dose oral powder (Gavilax) #510 grams bisacodyl 5 mg tablet,delayed 10 mg PO ONCE 1 day #2 tabs 01/20/22 release (Dulcolax (bisacodyl)) polyethylene glycol 3350 17 238 g PO ONCE #238 grams 01/20/22 gram/dose oral powder (Miralax) sennosides 8.6 mg tablet (Natural 17.2 mg PO BEDTIME constipation 01/20/22 Senna Laxative) #180 tabs albuterol sulfate 2.5 mg/3 mL 2.5 mg (3 mL) inhalation QID PRN 02/26/22 (0.083 %) solution for nebulization shortness of breath or wheezing #180 mL albuterol sulfate 90 mcg/actuation 2 inh PO Q4H PRN bronchospasm #8.5 02/26/22 aerosol inhaler (ProAir HFA) grams cholecalciferol (vitamin D3) 50 50 mcg PO DAILY #90 caps 02/26/22 mcg (2,000 unit) capsule montelukast 10 mg tablet 10 mg PO BEDTIME 90 days #90 tabs 02/26/22 cyclobenzaprine 10 mg tablet 10 mg PO TID PRN muscle spasm #10 03/03/22 tabs ketorolac 10 mg tablet 10 mg PO Q8H PRN pain #20 tabs 03/03/22 Allergies Allergy/AdvReac Type Severity Reaction Status Date / Time fluticasone [From Flonase] Allergy Unknown glaucoma Verified 03/03/22 12:12 suspect Penicillins [PENICILLINS] Allergy Unknown RASH Verified 03/03/22 12:12 Review of Systems Review of Systems: Yes all other systems are reviewed and are negative Constitutional: Constitutional: Reports no additional constitutional complaints, Denies body ache(s), Denies chills, Denies fever(s), Denies headache(s) and Denies weakness Eyes: Eyes: Reports no additional eye complaints and Denies change in vision ENT: Reports system reviewed and no additional complaints, except as documented, Denies dizziness, Denies headache(s), Denies nasal congestion, Denies nasal discharge and Denies neck pain Cardiovascular: Cardiovascular: Reports no additional cardiovascular complaints, Reports chest pain, Denies leg edema and Denies dyspnea Respiratory: Respiratory: Reports no additional respiratory complaints, Denies cough and Denies dyspnea Gastrointestinal: Gastrointestinal: Reports no additional gastrointestinal complaints, Denies abdominal pain, Denies diarrhea, Denies nausea and Denies vomiting Genitourinary: Genitourinary: Reports no additional female genitourinary complaints and Denies urinary incontinence Musculoskeletal: Musculoskeletal: Reports no additional musculoskeletal complaints, Reports back pain, Reports arthralgias, Denies joint swelling, Denies neck pain, Denies numbness, Reports radiating pain into limb and Denies tingling Integumentary/Breasts: Skin/Breast: Reports system reviewed and no additional complaints, except as docu and Denies rash Neurologic: Reports system reviewed and no additional complaints, except as documented, Denies dizziness, Denies headache(s), Denies numbness, Denies tingling and Denies weakness PMFSH Past Medical History Attestation statement: The following information was validated with the patient. Source: old records reviewed and nursing notes reviewed Medical History Anemia Asthma Chronic radicular low back pain GERD (gastroesophageal reflux disease) Glaucoma suspect History of right bundle branch block Hypertension Migraine Obesity (BMI 30-39.9) Vitamin D deficiency Surgical History History of cataract surgery History of section History of lumpectomy of left breast Family History Family History Father Stroke Hypertension Mother Bladder cancer CVD (cardiovascular disease) Maternal Grandfather Myocardial infarction Maternal Uncle Mouth cancer Paternal Aunt Brain cancer Maternal Aunt Myocardial infarction Other Anxiety Social History Social History Housing: House Alcohol intake: never Patient Tobacco Use Status: Never used Tobacco e-Cigarette/Vaping Use: Never Used Second Hand Smoke Exposure: No Advance Directives: No Advance Directives Information Provided: Yes service: No Current occupational status: unemployed Current occupational exposures/hazards: No Cognitive needs: No Hearing needs: No Vision needs: Yes Physical Exam ED Vital Signs: Vital Signs - 24 hr 03/03/22 12:13 03/03/22 12:52 Temperature 97.4 F 97.9 F Pulse Rate 84 75 Respiratory Rate 18 12 Blood Pressure 143/84 H 128/62 Pulse Oximetry 98 99 Oxygen Delivery Method Room Air Room Air BMI result Body Mass Index 34.0 Const General: cooperative, healthy appearing and comfortable Orientation/consciousness: patient oriented x3 Limitations: no limitations HENMT Head: Yes normal to inspection Ears: hearing grossly normal bilaterally Eyes General: appearance normal, both eyes and all related structures Pupils: Equal, round and reactive pupils present Neck Other: No cervical tenderness, step-offs deformities. Full range of motion Neck: Yes normal visual inspection, Yes full ROM and Yes no lymphadenopathy Chest Chest palpation & inspection: normal inspection of the chest Resp Effort & Inspection: normal respiratory effort Auscultation: clear to auscultation bilaterally Cardio Rate: regular rate Rhythm: regular rhythm Peripheral pulses: Peripheral pulses 2+ throughout GI Inspection: Yes normal to inspection Palpation (GI): Soft to palpation and nontender General: Yes no CVA tenderness Back/Spine/Pelvis Other: Diffuse tenderness throughout the spine and soft tissues bilaterally with no focal step-offs or deformities Back: no CVA tenderness Skin General skin exam: no rashes or lesions noted Neuro General: patient oriented x3 and moves all extremities Cranial nerves: Yes CN's II-XII intact bilaterally, Yes Equal, round and reactive pupils present, Yes Bilaterally intact EOM present, Yes Nystagmus not present, Yes Normal facial strength present and Yes Midline tongue present Cognition (Neuro): normal cognition Gait exam (Neuro): Normal gait present Motor exam (neuro): 5/5 motor strength present throughout Sensory Exam: Normal double simultaneous stimulation for sensation Deep tendon reflexes (DTR's): Right patellar reflex intensity grade: 2+ and Left patellar reflex intensity grade: 2+ Extrem General: Yes normal to inspection, Yes no pedal edema and Yes no calf tenderness Course Course Course Narrative: Labs show no acute finding. EKG shows no ischemic changes. Chest x-ray is negative for any abnormality. Patient feels improved Toradol. Pain is musculoskeletal. She can follow up outpatient with her primary care doctor for any persistent symptoms. Will discharge home with NSAID and low-dose muscle relaxant. Reviewed worrisome signs and symptoms when to return to the emergency department. Comfortable discharge home. Medical Decision Making MDM Narrative Medical decision making narrative: 61-year-old female who presents with 4 days of middle back pain with radiation to the left arm with no known injury or trauma. Patient also reports some chest discomfort and pain that is worsened with deep breathing. On exam patient has diffuse back pain. There are no focal midline tenderness or step-offs deformities. Her vitals are stable. Her lungs are clear. She has no clinical findings concerning for DVT. Will check EKG, labs, x-ray, provide analgesia and reassess -consider MS strain, ACS, PE -less likely ACS with symptoms for several days with negative troponin and EKG. Less likely PE with negative D-dimer, no tachypnea, no hypoxia, no clinical findings concerning for DVT. No neck pain or weakness to suggest cord compression or cervical cause. Medical Records Medical records reviewed: Yes I reviewed the patient's medical records. Lab Data Lab results reviewed: Yes I reviewed the patient's lab results. Result diagrams: 03/03/22 14:16 03/03/22 14:16 Labs: Lab Results 03/03/22 03/03/22 03/03/22 Range/Units 12:25 14:16 14:16 WBC 7.5 (4.8-10.8) X10*3/uL RBC 4.46 (4.20-5.50) X10*6/uL Hgb 12.9 (12.0-16.0) g/dl Hct 39.6 (37.0-47.0) % MCV 88.8 (80.0-98.0) fL MCH 28.9 (27.0-33.0) pg MCHC 32.6 (31.0-35.0) g/dl RDW 12.6 (11.0-16.0) % Plt Count 349 (160-400) X10*3/uL MPV 11.3 (9.4-12.3) fL Immature Gran % (Auto) 0.1 (0.0-0.4) % Neut % (Auto) 58.1 (45-73) % Lymph % (Auto) 32.6 (20-40) % [place] % (Auto) 6.4 (2-11) % Eos % (Auto) 2.1 (0-4) % Baso % (Auto) 0.7 (0-2) % Lymph # (Auto) 2.4 (1.2-4.9) X10*3/uL [place] # (Auto) 0.5 (0.1-1.2) X10*3/uL Eos # (Auto) 0.2 (0.0-0.4) X10*3/uL Baso # (Auto) 0.1 (0.0-0.2) X10*3/uL Abs Immat Gran (auto) 0.01 (0.00-0.03) X10*3/uL Absolute Neuts (auto) 4.3 (2.0-8.3) x10*3/uL Absolute Nucleated RBC 0.000 (0.0-0.012) X10*3/uL Nucleated RBC % (auto) 0.0 (0.0-0.2) /100WBC PT 11.3 (10.0-13.1) SEC INR 1.0 (0.9-1.1) D-Dimer High Sensitivty < 150 NG/ML Sodium (135-145) mmol/L Potassium (3.3-5.1) mmol/L Chloride (96-108) mmol/L Carbon Dioxide (22-29) mmol/L Anion Gap (12-20) BUN (9-16) mg/dL Creatinine (0.5-1.4) mg/dL Estim Creat Clear Calc Estimated GFR Random Glucose (60-115) mg/dL Calcium (8.4-10.2) mg/dL Total Bilirubin (0.0-1.0) mg/dL Direct Bilirubin (0.0-0.5) mg/dL AST (5-31) U/L ALT (0-31) U/L Alkaline Phosphatase (39-117) U/L Troponin I High Sens (<3.5-17.0) ng/L Total Protein (6.5-8.0) g/dL Albumin (3.5-5.0) g/dL Urine Color YELLOW Urine Appearance CLEAR Urine pH 6.5 (5.0-8.0) Ur Specific [place] 1.010 (1.005-1.025) Urine Protein Negative (Neg-Trace) mg/dL Urine Glucose (UA) Negative (Negative) mg/dL Urine Ketones Negative (Negative) mg/dL Urine Blood Trace (Negative) Urine Nitrite Negative (Negative) Ur Leukocyte Esterase Negative (Negative) Urine RBC 0-2 (0-2) /HPF Urine WBC 0-5 (0-5) /HPF Ur Squamous Epith Cells 0-2 /HPF Urine Bacteria Trace (None Seen) Hyaline Casts 0-2 /LPF 03/03/22 03/03/22 Range/Units 14:16 14:16 WBC (4.8-10.8) X10*3/uL RBC (4.20-5.50) X10*6/uL Hgb (12.0-16.0) g/dl Hct (37.0-47.0) % MCV (80.0-98.0) fL MCH (27.0-33.0) pg MCHC (31.0-35.0) g/dl RDW (11.0-16.0) % Plt Count (160-400) X10*3/uL MPV (9.4-12.3) fL Immature Gran % (Auto) (0.0-0.4) % Neut % (Auto) (45-73) % Lymph % (Auto) (20-40) % [place] % (Auto) (2-11) % Eos % (Auto) (0-4) % Baso % (Auto) (0-2) % Lymph # (Auto) (1.2-4.9) X10*3/uL [place] # (Auto) (0.1-1.2) X10*3/uL Eos # (Auto) (0.0-0.4) X10*3/uL Baso # (Auto) (0.0-0.2) X10*3/uL Abs Immat Gran (auto) (0.00-0.03) X10*3/uL Absolute Neuts (auto) (2.0-8.3) x10*3/uL Absolute Nucleated RBC (0.0-0.012) X10*3/uL Nucleated RBC % (auto) (0.0-0.2) /100WBC PT (10.0-13.1) SEC INR (0.9-1.1) D-Dimer High Sensitivty NG/ML Sodium 143 (135-145) mmol/L Potassium 4.1 (3.3-5.1) mmol/L Chloride 109 H (96-108) mmol/L Carbon Dioxide 24 (22-29) mmol/L Anion Gap 14 (12-20) BUN 8 L (9-16) mg/dL Creatinine 0.76 (0.5-1.4) mg/dL Estim Creat Clear Calc 74.0 Estimated GFR > 60 Random Glucose 97 (60-115) mg/dL Calcium 9.5 (8.4-10.2) mg/dL Total Bilirubin 0.3 (0.0-1.0) mg/dL Direct Bilirubin 0.2 (0.0-0.5) mg/dL AST 12 (5-31) U/L ALT < 6 (0-31) U/L Alkaline Phosphatase 113 (39-117) U/L Troponin I High Sens < 3.5 (<3.5-17.0) ng/L Total Protein 7.0 (6.5-8.0) g/dL Albumin 4.4 (3.5-5.0) g/dL Urine Color Urine Appearance Urine pH (5.0-8.0) Ur Specific [place] (1.005-1.025) Urine Protein (Neg-Trace) mg/dL Urine Glucose (UA) (Negative) mg/dL Urine Ketones (Negative) mg/dL Urine Blood (Negative) Urine Nitrite (Negative) Ur Leukocyte Esterase (Negative) Urine RBC (0-2) /HPF Urine WBC (0-5) /HPF Ur Squamous Epith Cells /HPF Urine Bacteria (None Seen) Hyaline Casts /LPF Imaging Data Chest x-ray: Attestation: I personally reviewed and interpreted this imaging study as follows: Radiologist's impression: [place] [id number] XRay Report Signed Patient: Camilla Golden MR#: [id number] : 1960 Acct:[id number] Age/Sex: 61 / F ADM Date: 03/03/22 Loc: .ED Attending Dr: Ordering Physician: Yissel Carrillo NP Date of Service: 03/03/22 Procedure(s): XR chest 2V Accession Number(s): [id number] cc: Yissel Carrillo NP~ EXAMINATION: XR CHEST CLINICAL INFORMATION: Chest pain COMPARISON: None TECHNIQUE: 2 views of the chest were obtained. FINDINGS: No significant abnormality is noted involving the heart, lungs, mediastinum, bony thorax or soft tissues. XR/XR chest 2V IMPRESSION: Unremarkable examination. ECG Data Attestation: I personally reviewed and interpreted this ECG as follows: Interpretation: Sinus bradycardia with sinus arrhythmia with rate of 55, normal CO, normal QRS, normal QT Discharge Plan Discharge Clinical Impression: Back pain, Arm pain Patient Disposition: Home, Self-Care Instructions: Back Pain (ED), Arm Pain (ED) Additional Instructions: EKG, x-ray and labs are all very reassuring Follow-up with her doctor for persistent symptoms Prescriptions: New ketorolac 10 mg tablet 10 mg PO Q8H PRN (Reason: pain) Qty: 20 0RF cyclobenzaprine 10 mg tablet 10 mg PO TID PRN (Reason: muscle spasm) Qty: 10 0RF No Action sumatriptan succinate 100 mg tablet 100 mg PO .COMPLEX PRN (Reason: migraine headache) 30 Days Qty: 14 11RF Rx Instructions: 100 mg PO QD prn for MORGAN PRN; do not exceed 2 doses per 24 hrs meloxicam 7.5 mg tablet 7.5 mg PO DAILY 90 Days Qty: 90 2RF budesonide-formoterol [Symbicort] 160-4.5 mcg/actuation HFA aerosol inhaler 2 puff inhalation BID Qty: 10.2 5RF topiramate 50 mg tablet 50 mg PO BID 90 Days Qty: 270 3RF Rx Instructions: 1 tab in the AM and 2 tabs in the PM omeprazole 40 mg capsule,delayed release(DR/EC) 40 mg PO DAILY Qty: 90 3RF famotidine 40 mg tablet 40 mg PO BEDTIME Qty: 30 3RF polyethylene glycol 3350 [Gavilax] 17 gram/dose powder 17 g PO DAILY PRN (Reason: constipation) Qty: 510 6RF cholecalciferol (vitamin D3) 50 mcg (2,000 unit) capsule 50 mcg PO DAILY Qty: 90 3RF montelukast 10 mg tablet 10 mg PO BEDTIME 90 Days Qty: 90 3RF albuterol sulfate [ProAir HFA] 90 mcg/actuation HFA aerosol inhaler 2 inh PO Q4H PRN (Reason: bronchospasm) Qty: 8.5 0RF albuterol sulfate 2.5 mg /3 mL (0.083 %) solution for nebulization 2.5 mg inhalation QID PRN (Reason: shortness of breath or wheezing) Qty: 180 0RF brimonidine 0.2 % drops 1 drp ophthalmic (eye) Q12H docusate sodium 100 mg capsule 100 mg PO BEDTIME Qty: 30 3RF sennosides [Natural Senna Laxative] 8.6 mg tablet 17.2 mg PO BEDTIME Qty: 180 3RF bisacodyl [Dulcolax (bisacodyl)] 5 mg tablet,delayed release (DR/EC) 10 mg PO ONCE 1 Days Qty: 2 0RF Rx Instructions: take 2 tabs at noon the day before your colonoscopy polyethylene glycol 3350 [Miralax] 17 gram/dose powder 238 g PO ONCE Qty: 238 0RF Rx Instructions: As directed by gastroenterology department at [facility] Referrals: Sisi Rodrigez MD [Primary Care Provider] - 5 days (as needed) Interventions: ED Discharge Assessment Last Done: 03/03/22 15:53 Discharge Date/Time: 03/03/22 15:53 Print Language: Italian
--- NOTE | 2022-03-03 13:56 | ECG_ITS ---
Test Reason : chest pain back pain Blood Pressure : / mmHG Vent. Rate : 055 BPM Atrial Rate : 055 BPM P-R Int : 134 ms QRS Dur : 116 ms QT Int : 452 ms P-R-T Axes : 004 067 023 degrees QTc Int : 432 ms Sinus bradycardia with sinus arrhythmia Right bundle branch block Abnormal ECG When compared with ECG of 05-AUG-2018 12:55, Vent. rate has decreased BY 30 BPM Referred By: Yissel Carrillo Electronically Signed By:VIMAL GUERRERO
[2022-03-03] MEDS: Ketorolac Tromethamine 60 MG/2 ML VIAL IM (14:01)
[2022-03-03 14:25] LABS: MANUAL DIFF FLAG NO
[2022-03-03 14:27] LABS: Basophils Absolute Auto 0.1 X10*3/uL (0.0-0.2); Basophils Percent Auto 0.7 % (0-2); Eosinophils Absolute Auto 0.2 X10*3/uL (0.0-0.4); Eosinophils Percent Auto 2.1 % (0-4); Hematocrit 39.6 % (37.0-47.0); Hemoglobin 12.9 g/dl (12.0-16.0); Imm Gran Abs Auto 0.01 X10*3/uL (0.00-0.03); Imm Gran Pct Auto 0.1 % (0.0-0.4); Lymphocytes Absolute Auto 2.4 X10*3/uL (1.2-4.9); Lymphocytes Percent Auto 32.6 % (20-40); Mean Corpuscular HGB Conc 32.6 g/dl (31.0-35.0); Mean Corpuscular Hemoglobin 28.9 pg (27.0-33.0); Mean Corpuscular Volume 88.8 fL (80.0-98.0); Mean Platelet Volume 11.3 fL (9.4-12.3); Monocytes Absolute Auto 0.5 X10*3/uL (0.1-1.2); Monocytes Percent Auto 6.4 % (2-11); Neutrophils Absolute Auto 4.3 x10*3/uL (2.0-8.3); Neutrophils Percent Auto 58.1 % (45-73); Platelet Count 349 X10*3/uL (160-400); Red Blood Count 4.46 X10*6/uL (4.20-5.50); Red Cell Distribution Width 12.6 % (11.0-16.0); White Blood Count 7.5 X10*3/uL (4.8-10.8)
[2022-03-03 14:36] LABS: Prothrombin Time 11.3 SEC (10.0-13.1)
[2022-03-03 14:39] LABS: D Dimer High Sensitivity < 150 NG/ML
[2022-03-03 14:53] LABS: Alanine Aminotransferase < 6 U/L (0-31); Albumin Level 4.4 g/dL (3.5-5.0); Alkaline Phosphatase 113 U/L (39-117); Anion Gap 14 (12-20); Aspartate Amino Transferase 12 U/L (5-31); Bilirubin Direct 0.2 mg/dL (0.0-0.5); Bilirubin Total 0.3 mg/dL (0.0-1.0); Blood Urea Nitrogen 8 mg/dL (9-16); Calcium 9.5 mg/dL (8.4-10.2); Carbon Dioxide 24 mmol/L (22-29); Chloride 109 mmol/L (96-108); Estimated Glomerular Filt Rate > 60; Glucose Random 97 mg/dL (60-115); Potassium 4.1 mmol/L (3.3-5.1); Sodium 143 mmol/L (135-145)
[2022-03-03 14:54] LABS: Troponin-I High Sensitivity < 3.5 ng/L (<3.5-17.0)
== END 2022-03-03 15:53 | disposition home or self-care (01) ==
PROVIDERS: Nurse Practitioner Family; Emergency Provider Emergency Medicine; PCP Internal Medicine
DX: R07.89 Other chest pain (principal); M54.50 Low back pain, unspecified; M79.602 Pain in left arm; Z79.899 Other long term (current) drug therapy
CPT/HCPCS: 36415; 71046; 80048; 80076; 81001; 84484; 85025; 85379; 85610; 93005; 96372; 99284; J1885

== ENCOUNTER 2022-06-05 13:00 | Outpatient (RCR) | payer OTHER, MEDICAID, SELFPAY ==
[2022-05-08 14:12] VITALS: BP 147/66; PULSE 68
--- NOTE | 2022-05-08 15:37 | MHC.PT.EP ---
[facility] [place] Office [place] Office [place] Office [address] [phone] F: [phone] F: [phone] F: [phone] F: [phone] Physical Therapy Plan of Care Date of Evaluation: Date of Surgery: NA Diagnosis: Cervicalgia Assessment: Camilla is a 61 year old female who is referred to PT for cervicalgia . She reports of having neck pain for over 2 years. During her recent PCP visit she was recommended to trial PT and therefore she is here. Pt states that she has been here in the past however past history shows pt only attended 1 treatment and canceled the rest. On PT examination she presented with TTP over B UT, C2 to C7 spinous process, B medial border of scapula, decreased cervical ROM, decreased cervical and shoulder strength and altered posture. Due to these impairments she has difficulty performing all ADLS. She has no help to perform ADLS. She would benefit from skilled PT to address the aforementioned impairments and improve tolerance to functional activities. Pt was recommended 2/week for 4 however she requested 1/week due to family issues. Frequency and Duration: The patient will be seen 1/ week for 8 weeks Short Term Goals: 1. Pt will initiate performing HEP in 2 weeks. 2. Pt will be able to move her shoulder through full plane of motion without pain which will enable her to dress her upper body in 4 weeks. Skilled Nursing Goals: 1. Pt will demonstrate an increase in muscle strength by 1 grade which will enable her to perform IADLS with a pain no more than 2/10 in 6 weeks. 2. Pt will be independent with HEP for symptom management and maintenance following d/c in 8 weeks. Treatment Plan: Modalities to reduce pain, spasms and effusion. Manual therapy to restore motion and function. Therapeutic exercise to improve strength and flexibility. Neuromuscular re-education for posture and balance. Therapeutic activities to return to functional activities of daily living. Electronically signed by: Silvina Argueta PT DPT Please sign and return to therapist. Thank you for your referral.
--- NOTE | 2022-07-21 15:51 | MHC.PT.DC ---
[facility] [place] [facility] [address] Phil Lucio [address] [phone] F: [phone] F: [phone] F: [phone] F: [phone] Physical Therapy Discharge Report Diagnosis: Cervicalgia Date of Surgery: NA Date of Evaluation: 05/08/22 Date of Discharge: Treatments to Date: 4 Cancellations to Date: 4 No Shows to Date: Discharge Status: Visit Non-compliance Discharge Summary: Camilla canceled multiple visits due to personal reasons and did not call back to re-schedule them. She is therefore being d/c from PT. Electronically signed by: Silvina Argueta PT DPT Please sign and return to therapist. Thank you for your referral.
== END 2022-07-21 15:51 | disposition home or self-care (01) ==
LOC: HO.PT 13:00
PROVIDERS: PCP Internal Medicine; Visit Provider Internal Medicine
DX: M54.2 Cervicalgia (principal)
CPT/HCPCS: 97110; 97140; 97161

== ENCOUNTER 2022-06-08 08:29 | Day surgery (SDC) | payer OTHER, MEDICAID, SELFPAY ==
[2022-06-01 10:44] VITALS: BMI 34.7
--- NOTE | 2022-06-02 14:23 | HO.ANESPROP2 ---
Documented by User: Parisa Pitts NP 06/02/22 14:27 HPI - Anesthesia Eval Consult details Narrative: 61yo F for Upper Endoscopy and Colonoscopy [facility] [place] with back and left arm pain - found to be muskuloskeletal, ACS r/o PMFSH Active Problems Active Problems: All Active Problems (Updated 03/04/22 @ 00:02 by Maru Henry) Neck pain (Acute) Annual physical exam (Acute) Fatty liver (Acute) RUQ abdominal pain (Acute) Right hand pain (Acute) Cervical cancer screening (Acute) Generalized anxiety disorder (Acute) Varicose veins of right lower extremity with inflammation (Acute) Trigger finger, right middle finger (Acute) Numbness and tingling of right hand (Acute) Patellofemoral arthritis of right knee (Acute) Varicose veins of bilateral lower extremities with pain (Acute) Trigger finger of right hand (Acute) Annual physical exam (Acute) Impaired fasting blood sugar (Acute) Breast cancer screening by mammogram (Acute) Knee pain, bilateral (Acute) Constipation (Acute) Asthma (Acute) Obesity (BMI 30-39.9) (Acute) Hypertension (Acute) GERD (gastroesophageal reflux disease) (Acute) Migraine (Acute) Past Medical History Medical History Anemia Asthma Chronic radicular low back pain GERD (gastroesophageal reflux disease) Glaucoma suspect History of right bundle branch block Hypertension Migraine Obesity (BMI 30-39.9) Vitamin D deficiency Family History Family History Father Stroke Hypertension Mother Bladder cancer CVD (cardiovascular disease) Maternal Grandfather Myocardial infarction Maternal Uncle Mouth cancer Paternal Aunt Brain cancer Maternal Aunt Myocardial infarction Other Anxiety Surgical History Surgical History History of cataract surgery History of section History of lumpectomy of left breast Social History Social History Housing: House Alcohol intake: never Patient Tobacco Use Status: Never used Tobacco e-Cigarette/Vaping Use: Never Used Second Hand Smoke Exposure: No Use of substances other than those prescribed or required for medical reasons: No Are you DNR?: No Advance Directives: No Advance Directives Information Provided: Yes service: No Current occupational status: unemployed Current occupational exposures/hazards: No Cognitive needs: No Hearing needs: No Vision needs: Yes Meds Allergies Allergy/AdvReac Type Severity Reaction Status Date / Time fluticasone [From Flonase] Allergy Unknown glaucoma Verified 05/08/22 09:43 suspect Penicillins [PENICILLINS] Allergy Unknown RASH Verified 05/08/22 09:43 Home Medications Medication Instructions Recorded Confirmed Last Taken Type brimonidine 0.2 % eye drops 1 drp ophthalmic (eye) Q12H 04/01/21 06/08/22 06/07/22 History Exam Exam Date and Time: June 02, 2022 1423 Height,Weight and Vital Signs: Height 5 ft Weight 80.739 kg Pertinent Lab Results Pertinent Lab Results: Laboratory Tests 03/03/22 03/03/22 14:16 14:16 WBC 7.5 Hgb 12.9 Hct 39.6 Plt Count 349 Sodium 143 Potassium 4.1 Chloride 109 H Carbon Dioxide 24 BUN 8 L Creatinine 0.76 Narrative Narrative: EKG 02/2022 Vent. Rate : 055 BPM ? ? Atrial Rate : 055 BPM ?? P-R Int : 134 ms? QRS Dur : 116 ms ? ? QT Int : 452 ms ? ? ? P-R-T Axes : 004 067 023 degrees ?? QTc Int : 432 ms ? Sinus bradycardia with sinus arrhythmia Right bundle branch block Abnormal ECG When compared with ECG of 05-AUG-2018 12:55, Vent. rate has decreased BY? 30 BPM Assessment and Plan Assessment Anesthesia Assessment: Chart Reviewed Documented by User: Amada Moctezuma MD 06/08/22 09:23 [facility] Past Medical History Medical History Anemia Asthma Chronic radicular low back pain GERD (gastroesophageal reflux disease) Glaucoma suspect History of right bundle branch block Hypertension Migraine Obesity (BMI 30-39.9) Vitamin D deficiency Family History Family History Father Stroke Hypertension Mother Bladder cancer CVD (cardiovascular disease) Maternal Grandfather Myocardial infarction Maternal Uncle Mouth cancer Paternal Aunt Brain cancer Maternal Aunt Myocardial infarction Other Anxiety Family history of problems with anesthesia: No Surgical History Surgical History History of cataract surgery History of section History of lumpectomy of left breast History of Problems with Anesthesia: No Social History Social History Housing: House Alcohol intake: never Patient Tobacco Use Status: Never used Tobacco e-Cigarette/Vaping Use: Never Used Second Hand Smoke Exposure: No Use of substances other than those prescribed or required for medical reasons: No Are you DNR?: No Advance Directives: No Advance Directives Information Provided: Yes service: No Current occupational status: unemployed Current occupational exposures/hazards: No Cognitive needs: No Hearing needs: No Vision needs: Yes Meds Allergies Allergy/AdvReac Type Severity Reaction Status Date / Time fluticasone [From Flonase] Allergy Unknown glaucoma Verified 05/08/22 09:43 suspect Penicillins [PENICILLINS] Allergy Unknown RASH Verified 05/08/22 09:43 Home Medications Medication Instructions Recorded Confirmed Last Taken Type brimonidine 0.2 % eye drops 1 drp ophthalmic (eye) Q12H 04/01/21 06/08/22 06/07/22 History Exam Airway Mallampati Class: II (Small mouth opening) TM Dist: >3cm Neck ROM: Full Heart: rrr Lungs: cta Assessment and Plan Assessment Anesthesia Assessment: Anesthesia Plan Discussed Final Anesthetic Review Family History of Problems with Anesthesia: No History of Problems with Anesthesia: No NPO: Yes ASA Class: II Final Preanesthetic Review: No Changes in Pt Med Stat, Meds/Allgs Chart Reviewed and Consent Obtained/Reviewed Patient Risk: Intermediate Procedure Risk: Intermediate Anesthetic Plan Anesthetic Plan: MAC: Disposition: Standard PACU
--- NOTE | 2022-06-08 09:21 | MHC.SHP ---
Pre-Procedural Eval Section A Date of Service: 06/08/22 The History & Physical has been completed within 30 days and I have reviewed it.: Yes Section B Chief Complaint: reflux,screening Allergies: Allergies Allergy/AdvReac Type Severity Reaction Status Date / Time fluticasone [From Flonase] Allergy Unknown glaucoma Verified 05/08/22 09:43 suspect Penicillins [PENICILLINS] Allergy Unknown RASH Verified 05/08/22 09:43 Plan Diagnosis/Plan: Unchanged I have reviewed the history and physical and performed a pertinent physical examination on my patient. No changes have occurred unless specified.
[2022-06-08 09:28] VITALS: BP 124/76; PULSE 73; RESP 16; TEMP 36.2; O2SAT 98
--- NOTE | 2022-06-08 09:31 | P.OP_ITS ---
Operative Note Operative Note Date of Service: 06/08/22 Narrative: Procedure: Esophagogastroduodenoscopy and colonoscopy Endoscopist: Karla Lang MD Indication: Reflux, screening for CRC Anesthesia Provider: Dr Amada Perez Anesthesia Type: MAC ?? EGD Procedure:?? The procedure, indications, preparation and potential complications were reviewed with the patient, who indicated understanding and gave written informed consent to proceed. An contract associate manager was utilized to assist with the consent. A physical exam was performed. The endoscope was introduced through the mouth, and advanced to the second part of duodenum. The mucosa was carefully examined on slow withdrawal of the endoscope. The patient tolerated the procedure well. There were no immediate complications.? ? EGD Findings:? * Esophagus:? The Z line was at 36 cm. Multifocal areas of nodularity noted at the GEJ with irregular vascularity under NBI exam. Multiple cold forceps biopsies were obtained. A small hiatal hernia was noted. The diaphragmatic pinch is at 38 cm. * Stomach:? Normal mucosa was noted in the stomach. Random gastric cold forceps biopsies were taken to rule out H Pylori. * Duodenum:? Normal mucosa was noted in the whole of the examined duodenum. Colonoscopy Procedure:? The patient was then turned for the procedure. A digital rectal exam was performed which was normal. The colonoscope was then inserted through the anus and advanced through the colon to the cecum at 75 cm. Mucosa was carefully ex amined under high definition white light as the instrument was slowly withdrawn in a retrograde panoramic fashion. Retroflexion was performed in rectum. The procedure was not difficult. There were no immediate obvious complications. The quality of the prep was BBPS: 3+2+3 = adequate Withdrawal time 23 minutes. Limitations: No limitations. Findings: Mucosa: Normal to cecum. Protruding lesions: * 1 sessile polyp of size 12 mm in descending colon. Cold snare polypectomy was performed. The polyp was completely removed and retrieved. * 2 sessile polyps of size 4-8 mm in ascending colon. Cold snare polypectomy was performed. The polyp was completely removed and retrieved. Persistent bleeding was noted from one of the polypectomy sites on relook. One hemoclip was applied for hemostasis. * 1 sessile polyp of size 8 mm in transverse colon. Cold snare polypectomy was performed. The polyp was completely removed and retrieved. * Large internal hemorrhoids without stigmata of recent bleeding. ? Impression:? * Nodularity at GEJ (biopsy) * Hiatal hernia * Normal stomach (biopsy) * Normal duodenum * Normal colon mucosa * Total of 4 polyps removed from ascending, transverse, and descending colon. * Internal hemorrhoids Recommendations:?? * Follow path results. Depending on results may need band EMR. ?? * Repeat colonoscopy in 3 years if the largest polyp is an SSL or an adenoma. * Continue PPI therapy. * If H pylori +, patient will be prescribed eradication therapy followed by test of cure. * Avoid NSAIDs. Above has been reviewed with the patient. Relevant educational hand outs were provided at discharge. ?
[2022-06-08 10:39] VITALS: BP 117/79; PULSE 73; RESP 16; TEMP 36.2; O2SAT 99
[2022-06-08 10:54] VITALS: BP 121/74; PULSE 64; RESP 18; TEMP 36.9; O2SAT 100
== END 2022-06-08 11:57 ==
LOC: HO.SSS 08:29
PROVIDERS: PCP Internal Medicine; Visit Provider Internal Medicine
PROC: (CPT 45385; principal; 2022-06-08 09:30)
DX: Z12.11 Encounter for screening for malignant neoplasm of colon (principal); D12.2 Benign neoplasm of ascending colon; K63.5 Polyp of colon; K64.8 Other hemorrhoids; K59.04 Chronic idiopathic constipation; K21.9 Gastro-esophageal reflux disease without esophagitis; K22.89 Other specified disease of esophagus; K44.9 Diaphragmatic hernia without obstruction or gangrene; D64.9 Anemia, unspecified; J45.909 Unspecified asthma, uncomplicated; I10 Essential (primary) hypertension; E55.9 Vitamin D deficiency, unspecified; E66.9 Obesity, unspecified; Z68.34 Body mass index [BMI] 34.0-34.9, adult; Z79.899 Other long term (current) drug therapy; Z88.0 Allergy status to penicillin; Z88.8 Allergy status to other drugs, medicaments and biological substances
CPT/HCPCS: 45385; 43239; 88305; 88342

== ENCOUNTER 2022-07-22 10:31 | Outpatient (REF) | payer OTHER, MEDICAID, SELFPAY ==
[2022-07-22 10:50] LABS: MANUAL DIFF FLAG NO
[2022-07-22 11:25] LABS: Hemoglobin 12.9 g/dl (12.0-16.0); White Blood Count 6.7 X10*3/uL (4.8-10.8)
[2022-07-22 11:26] LABS: Basophils Absolute Auto 0.1 X10*3/uL (0.0-0.2); Basophils Percent Auto 0.7 % (0-2); Eosinophils Absolute Auto 0.2 X10*3/uL (0.0-0.4); Eosinophils Percent Auto 2.2 % (0-4); Hematocrit 40.4 % (37.0-47.0); Imm Gran Abs Auto 0.02 X10*3/uL (0.00-0.03); Imm Gran Pct Auto 0.3 % (0.0-0.4); Lymphocytes Absolute Auto 2.5 X10*3/uL (1.2-4.9); Lymphocytes Percent Auto 36.9 % (20-40); Mean Corpuscular HGB Conc 31.9 g/dl (31.0-35.0); Mean Corpuscular Hemoglobin 28.7 pg (27.0-33.0); Mean Corpuscular Volume 89.8 fL (80.0-98.0); Mean Platelet Volume 12.2 fL (9.4-12.3); Monocytes Absolute Auto 0.4 X10*3/uL (0.1-1.2); Monocytes Percent Auto 6.2 % (2-11); Neutrophils Absolute Auto 3.6 x10*3/uL (2.0-8.3); Neutrophils Percent Auto 53.7 % (45-73); Platelet Count 330 X10*3/uL (160-400); Red Cell Distribution Width 12.4 % (11.0-16.0)
[2022-07-22 11:34] LABS: Estimated Average Glucose 134 mg/dL; Hemoglobin A1C 149.8744 umol/L; Hemoglobin A1c % 6.3 %
[2022-07-22 12:16] LABS: Alanine Aminotransferase 6 U/L (0-31); Albumin Level 4.2 g/dL (3.5-5.0); Alkaline Phosphatase 119 U/L (39-117); Anion Gap 10 (12-20); Aspartate Amino Transferase 12 U/L (5-31); Bilirubin Total 0.6 mg/dL (0.0-1.0); Blood Urea Nitrogen 11 mg/dL (9-16); Calcium 9.7 mg/dL (8.4-10.2); Carbon Dioxide 25 mmol/L (22-29); Chloride 110 mmol/L (96-108); Cholesterol 192 mg/dL; Estimated Glomerular Filt Rate > 60; Glucose Random 106 mg/dL (60-115); HDL Cholesterol 59 mg/dL; LDL Cholesterol Calculated 110 mg/dl; Potassium 4.2 mmol/L (3.3-5.1); Sodium 141 mmol/L (135-145); Total Protein 6.8 g/dL (6.5-8.0); Triglycerides 117 mg/dL
[2022-07-22 12:17] LABS: Thyroid Stimulating Hormone 1.34 uIU/mL (0.32-4.0)
[2022-07-22 12:33] LABS: Folate 12.9 ng/mL (> or = 4.0); Vitamin B12 480 pg/mL (200-900)
== END 2022-07-22 10:32 | disposition home or self-care (01) ==
LOC: HO.LAB 10:31
PROVIDERS: PCP Internal Medicine; Visit Provider Internal Medicine
DX: R73.01 Impaired fasting glucose (principal); I10 Essential (primary) hypertension; E78.00 Pure hypercholesterolemia, unspecified
CPT/HCPCS: 36415; 80053; 80061; 82607; 82746; 83036; 84439; 84443; 85025

== ENCOUNTER → 2022-08-11 09:29 | Outpatient (BNVA) | payer OTHER, MEDICAID, SELFPAY | PROVIDERS: PCP Internal Medicine; Visit Provider Advanced Practice Midwife | DX: Z13.89 Encounter for screening for other disorder (principal) ==

== ENCOUNTER 2022-10-30 13:10 | Outpatient (REF) | payer OTHER, MEDICAID, SELFPAY ==
--- NOTE | ~2022-10-30 | MM_ITS ---
EXAMINATION: MM SCREENING DIGITAL BREAST TOMOSYNTHESIS, BILATERAL CLINICAL INFORMATION: Screening. Asymptomatic. The lifetime risk of breast cancer based on the Tyrer-Cuzick Model is 6.6%. COMPARISON: Mammography: October 28, 2021 and studies dating back to June 11, 2014 TECHNIQUE: Digital breast tomosynthesis is performed in both the craniocaudal and mediolateral oblique views along with computer-aided detection (CAD). Synthesized 2D images are generated from the tomosynthesis. FINDINGS: There are scattered areas of fibroglandular density (ACR BI-RADS breast composition Category b). There are no significant masses, abnormal calcifications, or other abnormalities. MM/MM tomosynthesis screening BI IMPRESSION: No significant changes from prior exam. ASSESSMENT: BI-RADS 1: Negative RECOMMENDATION: Routine annual mammography screening. This patient's information was entered into a reminder system with a target due date for their next mammogram.
== END 2022-10-30 13:11 | disposition home or self-care (01) ==
LOC: HO.MAMMO 13:10
PROVIDERS: PCP Internal Medicine; Visit Provider Internal Medicine
DX: Z12.31 Encounter for screening mammogram for malignant neoplasm of breast (principal)
CPT/HCPCS: 77063; 77067

== ENCOUNTER → 2022-12-28 15:54 | Outpatient (BNVA) | payer OTHER, MEDICAID, SELFPAY | PROVIDERS: PCP Internal Medicine; Visit Provider Nurse Practitioner Family ==

== ENCOUNTER 2023-02-01 13:53 | Outpatient (AMB) | payer OTHER, MEDICAID, SELFPAY ==
[2023-02-01 14:00] VITALS: BP 139/71; PULSE 73; BMI 34.2
--- NOTE | 2023-02-01 14:00 | MHC.OFFVIS ---
Intake Vital Signs 02/01/23 14:00 Height 5 ft Weight 175 lb 0.752 oz BMI 34.2 BP 139/71 Blood Pressure Location Lt brachial Position Sitting Pulse 73 Intake Visit Reasons: 1 month follow up Intake Note: Camilla presents in office as a est.patient for a 1month for constipation PT CC:pt reports having no concerns pt denies any other GI Issues Nursery Technician Required: Yes Nursery Technician Language: Haitian Accompanied by: Self / Same As Patient Allergies fluticasone [From Flonase] Allergy (Unknown, Verified 02/01/23 14:01) glaucoma suspect Penicillins [PENICILLINS] Allergy (Unknown, Verified 02/01/23 14:01) RASH HPI 1 month follow up HPI Details LAST VISIT Constipation Continue taking Dulcolax tablets. Patient was encouraged to increase fluid intake and activity to promote better bowel motility. GERD (gastroesophageal reflux disease) Patient reports acid reflux and dyspepsia without dysphagia or odynophagia. Will change omeprazole to pantoprazole. Will start patient on famotidine again. Will do 20 mg at bedtime. Patient was encouraged to avoid dietary triggers and late night snacking. Staying upright for minimal 3 hours after meals discussed with patient. IBS (irritable bowel syndrome) Symptoms of abdominal bloating have improved. Patient is moving her bowels better. Denies any abdominal pain or discomfort. Continue low FODMAP diet Postprandial epigastric pain Occasional postprandial epigastric pain. Patient also reports acid reflux. Symptoms better with omeprazole, however not completely relieved. Will changed treatment to pantoprazole every morning. Patient will restart taking famotidine. Will order 20 mg at bedtime. Patient will call the office if she will continue to have symptoms. I will see her in 5 weeks, sooner on as needed basis. Patient is agreeable to this plan and verbalizes understanding of instructions. She was given the opportunity to ask questions and all questions answered. ? Thank you for allowing me to participate in her care Plan Medications New famotidine (Pepcid) 20 mg PO BEDTIME 30 tabs 3RF K21.9 pantoprazole take one tablet half an hour before breakfast 40 mg PO DAILY 30 tabs 2RF K21.9 Discontinued famotidine Discontinued Reason: Doctor's Order 40 mg PO BEDTIME 90 tabs 0RF K21.9 omeprazole Discontinued Reason: Doctor's Order 40 mg PO DAILY 90 caps 3RF K21.9 TODAY'S VISIT: Patient is here today for follow-up. Patient reports that since last time I have seen her she has been feeling better. Patient states that she is moving her bowels now that she takes Dulcolax and MiraLax. Patient takes MiraLax in the morning and Dulcolax in the evening. Patient states that she is moving her bowels better now and she no longer feels bloated. Patient is taking famotidine at bedtime and pantoprazole in the morning half an hour before breakfast. Her symptoms of acid reflux are suppressed. Patient denies any dyspepsia, dysphagia or odynophagia. Patient reports that she has been doing better. Denies any GI symptoms at this time. [facility] Medical History Anemia Asthma Chronic radicular low back pain GERD (gastroesophageal reflux disease) Glaucoma suspect History of right bundle branch block Hypertension Migraine Obesity (BMI 30-39.9) Vitamin D deficiency Surgical History History of cataract surgery History of section History of esophagogastroduodenoscopy (EGD) History of lumpectomy of left breast Hx of colonoscopy Family History Father Stroke Hypertension Mother Bladder cancer CVD (cardiovascular disease) Maternal Grandfather Heart attack Maternal Uncle Mouth cancer Paternal Aunt Brain cancer Maternal Aunt Heart attack Brother Heart attack Brother Heart attack Other Anxiety Social History Household Members: Spouse and Children Housing: House Alcohol intake: never Patient Tobacco Use Status: Never used Tobacco e-Cigarette/Vaping Use: Never Used Second Hand Smoke Exposure: No service: No Current occupational status: unemployed Current occupational exposures/hazards: No Sexual orientation: Straight/Heterosexual Gender identity: Female Cognitive needs: No Hearing needs: No Vision needs: Yes Female Reproductive History Menstrual Age of Menarche: 12 Review of Systems Const Denies weight gain and Denies weight loss ENT Reports no additional complaints, Denies dysphagia and Denies odynophagia Card Reports no additional complaints Resp Reports no additional complaints GI Denies abdominal pain, Denies belching, Denies melena, Denies bloating, Denies change in bowel habits, Denies dysphagia, Denies excessive flatus, Denies dyspepsia, Denies heartburn, Denies diarrhea, Denies loose stools, Denies nausea, Denies odynophagia and Denies vomiting Musc Reports no additional complaints Neuro Reports no additional complaints Psych Reports no additional complaints Endo Reports no additional complaints Physical Exam Vital Signs: Last Vital Signs Pulse 73 02/01/23 14:00 BP 139/71 02/01/23 14:00 BMI result Body Mass Index 34.2 Const General: healthy appearing, no acute distress and well developed Nutritional Appearance: obese Orientation/consciousness: patient oriented x3 HEENT Head: Yes normal to inspection, Yes normocephalic and Yes atraumatic Face and sinus: Yes normal facial exam Mouth: Normal oral and palatal mucosa present Throat: Yes posterior oropharynx normal, Yes tonsils normal and Yes uvula midline Eyes General: appearance normal, both eyes and all related structures Neck Neck: Yes normal visual inspection, Yes full ROM and Yes trachea midline Thyroid: Thyroid normal Resp Effort & Inspection: normal respiratory effort, able to speak in complete sentences, no tracheal deviation and symmetric chest movement Auscultation: clear to auscultation bilaterally Cardio Rate: regular rate Heart sounds: S1 normal heart sound present and S2 normal heart sound present GI Inspection: Yes normal to inspection, No distended and Yes obesity Palpation (GI): Soft to palpation, not firm, nontender and No hepatosplenomegaly present Auscultation: normal bowel sounds General: Yes no CVA tenderness Back/Spine/Pelvis Back: no CVA tenderness Skin General skin exam: elasticity normal, turgor normal and dry skin Neuro General: patient oriented x3 Psych Appearance: grossly normal Mental Status: mental status grossly normal Speech and movement: Normal speech and movement present Affect: normal affect Assessment & Plan Assessment & Plan (1) Constipation: Code(s): K59.00 - Constipation, unspecified Qualifiers: Constipation type: chronic idiopathic constipation Qualified Code(s): K59.04 - Chronic idiopathic constipation Plan: Continue Dulcolax and MiraLax. Patient was also encouraged to increase fluid intake and activity to promote better bowel motility. (2) GERD (gastroesophageal reflux disease): Code(s): K21.9 - Gastro-esophageal reflux disease without esophagitis Qualifiers: Esophagitis presence: without esophagitis Qualified Code(s): K21.9 - Gastro-esophageal reflux disease without esophagitis Plan: Continue famotidine at night and pantoprazole in the morning. Patient was encouraged to avoid dietary triggers in late night snacking. Patient can try to stop taking famotidine at night time and see if she will have any symptoms. Patient can stop and use it on as needed basis (3) IBS (irritable bowel syndrome): Code(s): K58.9 - Irritable bowel syndrome without diarrhea Qualifiers: Irritable bowel syndrome type: with constipation Qualified Code(s): K58.1 - Irritable bowel syndrome with constipation Plan: Improved symptoms of abdominal cramping and postprandial abdominal bloating. Continue current bowel regimen. Patient can increase fluid intake as well. Continue low FODMAP diet. (4) Postprandial epigastric pain: Code(s): R10.13 - Epigastric pain Plan: Patient reports that she no longer has epigastric discomfort unless she eats something that she is not supposed to. Continue avoiding culprits. I will see patient in 3 months, sooner on as needed basis. Patient is agreeable to this plan and verbalizes understanding of instructions. She was given the opportunity to ask questions and all questions answered. Thank you for allowing me to participate in her care Medications: Changed From polyethylene glycol 3350 17 grams PO DAILY PRN 510 grams 6RF constipation K59.00 - Constipation, unspecified To polyethylene glycol 3350 (Gavilax) 17 grams PO DAILY PRN 510 grams 6RF constipation K59.00 - Constipation, unspecified Refilled bisacodyl (Dulcolax (bisacodyl)) 10 mg (2 x 5 mg) PO BEDTIME 180 tabs 4RF famotidine (Pepcid) 20 mg PO BEDTIME 90 tabs 2RF K21.9 - Gastro-esophageal reflux disease without esophagitis pantoprazole take one tablet half an hour before breakfast 40 mg PO DAILY 90 tabs 2RF K21.9 - Gastro-esophageal reflux disease without esophagitis Coding Level of Care Code Est Pt Level 3 (71001) Diagnoses Constipation K59.04 Constipation type: chronic idiopathic constipation GERD (gastroesophageal reflux disease) K21.9 Esophagitis presence: without esophagitis IBS (irritable bowel syndrome) K58.1 Irritable bowel syndrome type: with constipation Postprandial epigastric pain R10.13 Time Spent (min) 30 Comment 20 minutes spent with patient additional 10 minutes spent reviewing her records
== END 2023-02-01 14:25 | disposition home or self-care (01) ==
PROVIDERS: PCP Internal Medicine; Visit Provider Nurse Practitioner Family
DX: K59.04 Chronic idiopathic constipation (principal); K21.9 Gastro-esophageal reflux disease without esophagitis; K58.1 Irritable bowel syndrome with constipation; R10.13 Epigastric pain
CPT/HCPCS: 99213

== ENCOUNTER → 2023-02-01 13:53 | Outpatient (BNVA) | payer OTHER, MEDICAID, SELFPAY | PROVIDERS: PCP Internal Medicine; Visit Provider Nurse Practitioner Family ==

== ENCOUNTER 2023-03-16 14:56 | Outpatient (AMB) | payer OTHER, MEDICAID, SELFPAY ==
[2023-03-16 15:05] VITALS: BP 134/86; PULSE 77; BMI 34.4
--- NOTE | 2023-03-16 15:05 | A.OFFPC_ITS ---
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 Allergies fluticasone [From Flonase] Allergy (Unknown, Verified 03/16/23 15:08) glaucoma suspect Penicillins [PENICILLINS] Allergy (Unknown, Verified 03/16/23 15:08) RASH Medication List - Last Reconciled 03/16/23 by Sisi Rodrigez MD albuterol sulfate 2.5 mg (3 mL) inhalation QID PRN albuterol sulfate 90 mcg/actuation (ProAir HFA) 2 inhalations PO Q4H PRN bisacodyl (Dulcolax (bisacodyl)) 10 mg (2 x 5 mg) PO BEDTIME brimonidine 0.2% 1 drp ophthalmic (eye) Q12H budesonide-formoterol 160-4.5 mcg/actuation (Symbicort) 2 puffs inhalation BID cholecalciferol (vitamin D3) 50 mcg PO DAILY famotidine (Pepcid) 20 mg PO BEDTIME montelukast 10 mg PO BEDTIME 90 days pantoprazole 40 mg PO DAILY polyethylene glycol 3350 (Gavilax) 17 grams PO DAILY PRN rizatriptan mg PO topiramate 100 mg PO BID Tobacco use date assessed: 08/27/22 Dental Screening Dental Screen Date: 03/16/23 Did you have a dental visit in the last 12 months?: No Did you have a dental problem in the last 6 months where you did not have access to dental care?: No Was dental information given to patient?: Patient has dentist HPI PE HPI Details 62-year-old obese female with GERD asthma impaired glucose tolerance coming in for physical exam. Last seen in August 2022. Colonoscopy is up-to-date May 2022 for 3 years mammograms up-to-date. Review of the notes [facility] sent in a note that the sleep study done in January 2023 was not suffice and has advised in lab sleep study. Patient also follows up with Gastroenterology for the constipation on Dulcolax and MiraLax esophagitis/reflux on famotidine and pantoprazole. Tavia Dobbins interpreting. in lab sleep study 04/2023 [facility] Medical History Anemia Asthma Chronic radicular low back pain GERD (gastroesophageal reflux disease) Glaucoma suspect History of right bundle branch block Hypertension Migraine Obesity (BMI 30-39.9) Vitamin D deficiency Surgical History History of cataract surgery History of section History of esophagogastroduodenoscopy (EGD) History of lumpectomy of left breast Hx of colonoscopy Family History Father Stroke Hypertension Mother Bladder cancer CVD (cardiovascular disease) Maternal Grandfather Heart attack Maternal Uncle Mouth cancer Paternal Aunt Brain cancer Maternal Aunt Heart attack Brother Heart attack Brother Heart attack Other Anxiety Social History Household Members: Spouse and Children Housing: House Alcohol intake: never Patient Tobacco Use Status: Never used Tobacco e-Cigarette/Vaping Use: Never Used Second Hand Smoke Exposure: No service: No Current occupational status: unemployed Current occupational exposures/hazards: No Sexual orientation: Straight/Heterosexual Gender identity: Female Cognitive needs: No Hearing needs: No Vision needs: Yes Female Reproductive History Menstrual Age of Menarche: 12 Questionnaire PHQ-9 Over the last 2 weeks, how often have you been bothered by any of the following problems? 1. Little interest or pleasure in doing things: not at all 2. Feeling down, depressed, or hopeless: not at all 3. Trouble falling or staying asleep, or sleeping too much: not at all 4. Feeling tired or having little energy: not at all 5. Poor appetite or overeating: not at all 6. Feeling bad about yourself - or that you are a failure or have let yourself or your family down: not at all 7. Trouble concentrating on things, such as reading the newspaper or watching television: not at all 8. Moving or speaking so slowly that other people could have noticed. Or the opposite - being so fidgety or restless that you have been moving around a lot more than usual: not at all 9. Thoughts that you would be better off or of hurting yourself in some way: not at all Total score: 0 Depression Screening Interpretation: Negative Source: Developed by Drs. Stevenson Collins, Gaviota Abrams, Vincent Busby and colleagues, with an educational luis antonio from [employer]. Thrive Questionnaire Date Thrive assessed: 08/27/22 AUDIT C Alcohol Use Questionnaire (AUDIT-C) 1. How often do you have a drink containing alcohol?: Never 3. How often do you have six or more drinks on one occasion?: Never Total Score: 0 RIOS-7 AMB Questionnaire RIOS-7 Date RIOS - 7 assessed: 08/27/22 Source: Developed by Drs. Stevenson Collins, Gaviota Abrams, Vincent Busby and colleagues, with an educational luis antonio from [employer]. Review of Systems Const Denies poor appetite and Denies weakness Eyes Denies no additional complaints ENT Reports Normal hearing present, Denies dizziness, Denies nasal congestion, Denies tinnitus and Denies sore throat Card Denies chest pain, Denies syncope, Denies rapid heart rate and Denies dyspnea Resp Denies cough and Denies dyspnea GI Denies change in stool character, Reports constipation, Denies diarrhea, Denies nausea and Denies vomiting Denies urinary frequency, Denies difficulty voiding and Denies dysuria Neuro Reports Normal hearing present, Denies confusion, Denies dizziness, Denies syncope and Denies weakness Psych Denies confusion Physical exam (Primary Care) Vital Signs: Last Vital Signs Pulse 77 03/16/23 15:05 BP 134/86 03/16/23 15:05 Oxygen Delivery Method Room Air 03/16/23 15:05 BMI result Body Mass Index 34.4 Tobacco/Smoking Status: Tobacco use Status Tobacco use date assessed 08/27/22 03/16/23 15:11 Patient Tobacco Use Status Never used Tobacco 03/16/23 15:11 e-Cigarette/Vaping Use Never Used 03/16/23 15:11 PHQ-9: PHQ-9 Score PHQ-9: Total score 0 03/16/23 15:11 Depression Screening Interpretation: Negative Thrive Assessment: Date of Thrive Assessment Date Thrive assessed 08/27/22 03/16/23 15:11 Const General: No confusion Orientation/consciousness: No confusion HENMT Head: Yes normocephalic Ears: external ears normal and TM's normal bilaterally Face and sinus: Yes normal facial exam Mouth: moist mucous membranes Throat: Yes tonsils normal Eyes Conjunctivae: conjunctivae normal Pupils: Equal, round and reactive pupils present and Pupil accommodation reflex normal Direct Ophthalmoscopy: normal light reflex Neck Neck: No lymphadenopathy Thyroid: Thyroid normal Chest Chest palpation & inspection: normal inspection of the chest Resp Effort & Inspection: normal respiratory effort and no audible wheezes Auscultation: clear to auscultation bilaterally, no crackles, no wheezes and lung sounds not diminished Cardio Rate: regular rate Rhythm: regular rhythm Peripheral pulses: radial pulses present and dorsalis pedis present GI Palpation (GI): no masses Auscultation: normal bowel sounds and normoactive bowel sounds Rectal Exam - Female: deferred Skin General skin exam: no rashes or lesions noted Rashes: no rashes Neuro General: No confusion Cranial nerves: Yes Equal, round and reactive pupils present and Yes Normal hearing present Cognition (Neuro): normal cognition Gait exam (Neuro): Normal gait present Motor exam (neuro): 5/5 motor strength present throughout Deep tendon reflexes (DTR's): Right brachioradialis reflex intensity grade: 2+, Left brachioradialis reflex intensity grade: 2+, Right patellar reflex intensity grade: 2+ and Left patellar reflex intensity grade: 2+ Extrem General: No edema Assessment and Plan Assessment & Plan (1) Hypersomnia: Code(s): G47.10 - Hypersomnia, unspecified Plan: Patient has been advised in lab sleep study (2) Annual physical exam: Code(s): Z00.00 - Encounter for general adult medical examination without abnormal findings (3) Generalized anxiety disorder: Code(s): F41.1 - Generalized anxiety disorder Plan: Stable (4) Impaired fasting blood sugar: Code(s): R73.01 - Impaired fasting glucose Plan: Decrease the amount of carbohydrate intake, pasta, bread, rice and potatoes are all sugar and that is aside from all the sweet stuff, remember that fruits are good but they are Sweet also. (5) Asthma: Code(s): J45.909 - Unspecified asthma, uncomplicated Qualifiers: Asthma severity: mild Asthma persistence: intermittent Asthma complication type: uncomplicated Qualified Code(s): J45.20 - Mild intermittent asthma, uncomplicated Plan: Continue with inhaler as needed (6) Obesity (BMI 30-39.9): Comment: With hx of IFG and constipation Code(s): E66.9 - Obesity, unspecified Plan: Diet and exercise (7) Hypertension: Code(s): I10 - Essential (primary) hypertension Qualifiers: Hypertension type: essential hypertension Qualified Code(s): I10 - Essential (primary) hypertension Plan: Patient's blood pressure is under control without any medication (8) GERD (gastroesophageal reflux disease): Code(s): K21.9 - Gastro-esophageal reflux disease without esophagitis Qualifiers: Esophagitis presence: without esophagitis Qualified Code(s): K21.9 - Gastro-esophageal reflux disease without esophagitis Plan: Avoid the foods that causes that usually spicy foods, tomato products, juices, coffee, soda and foods that your sensitive to. After eating do not lie down, allow 3-4 hours before in lie down. And keep the head of bed above 30 degrees to avoid the acid from going up. (9) Migraine: Code(s): G43.909 - Migraine, unspecified, not intractable, without status migrainosus Qualifiers: Migraine type: without aura Status migrainosus presence: without status migrainosus Intractability: not intractable Qualified Code(s): G43.009 - Migraine without aura, not intractable, without status migrainosus Plan: Keep well-hydrated, have enough sleep, keep active, eat healthy Medications: Refilled albuterol sulfate 90 mcg/actuation (ProAir HFA) 2 inhalations PO Q4H PRN 8.5 grams 0RF bronchospasm J45.20 - Mild intermittent asthma, uncomplicated cholecalciferol (vitamin D3) 50 mcg PO DAILY 90 caps 3RF R79.89 - Other specified abnormal findings of blood chemistry Coding Level of Care Code Est Pt Prev Care 40-64y(76886) Diagnoses Hypersomnia G47.10 Annual physical exam Z00.00 Generalized anxiety disorder F41.1 Impaired fasting blood sugar R73.01 Asthma J45.20 Asthma severity: mild Asthma persistence: intermittent Asthma complication type: uncomplicated Obesity (BMI 30-39.9) E66.9 Hypertension I10 Hypertension type: essential hypertension GERD (gastroesophageal reflux disease) K21.9 Esophagitis presence: without esophagitis Migraine G43.009 Migraine type: without aura Status migrainosus presence: without status migrainosus Intractability: not intractable
== END 2023-03-16 16:03 | disposition home or self-care (01) ==
PROVIDERS: PCP Internal Medicine; Visit Provider Internal Medicine
DX: Z00.00 Encounter for general adult medical examination without abnormal findings (principal); J45.20 Mild intermittent asthma, uncomplicated; I10 Essential (primary) hypertension; G43.009 Migraine without aura, not intractable, without status migrainosus; K21.9 Gastro-esophageal reflux disease without esophagitis; G47.10 Hypersomnia, unspecified; F41.1 Generalized anxiety disorder; R73.01 Impaired fasting glucose; E66.9 Obesity, unspecified
CPT/HCPCS: 99396

== ENCOUNTER 2023-03-30 10:14 | Outpatient (REF) | payer OTHER, MEDICAID, SELFPAY ==
[2023-03-30 10:49] LABS: Estimated Average Glucose 120 mg/dL; Hemoglobin A1c % 5.8 % (<6.0)
[2023-03-30 11:09] LABS: Alanine Aminotransferase < 5 U/L (0-31); Albumin Level 4.1 g/dL (3.5-5.0); Alkaline Phosphatase 109 U/L (39-117); Anion Gap 11 (12-20); Aspartate Amino Transferase 13 U/L (5-31); Bilirubin Total 0.4 mg/dL (0.0-1.0); Blood Urea Nitrogen 10 mg/dL (9-16); Calcium 9.4 mg/dL (8.4-10.2); Carbon Dioxide 24 mmol/L (22-29); Chloride 112 mmol/L (96-108); Estimated Glomerular Filt Rate > 60; Glucose Random 108 mg/dL (60-115); Potassium 3.9 mmol/L (3.3-5.1); Sodium 143 mmol/L (135-145)
[2023-03-30 11:29] LABS: Free T4 (Free Thyroxine) 0.94 ng/dL (0.71-1.85); Thyroid Stimulating Hormone 1.62 uIU/mL (0.32-4.0)
== END 2023-03-30 10:15 | disposition home or self-care (01) ==
LOC: HO.LAB 10:14
PROVIDERS: PCP Internal Medicine; Visit Provider Internal Medicine
DX: R73.01 Impaired fasting glucose (principal); R73.02 Impaired glucose tolerance (oral); I10 Essential (primary) hypertension; G43.909 Migraine, unspecified, not intractable, without status migrainosus
CPT/HCPCS: 36415; 80053; 83036; 84439; 84443

== ENCOUNTER 2023-05-04 12:56 | Outpatient (AMB) | payer OTHER, MEDICAID, SELFPAY ==
--- NOTE | 2023-05-04 12:57 | A.OFFVIS_ITS ---
Intake Vital Signs 05/04/23 13:03 Height 5 ft Weight 174 lb 2.643 oz BMI 34.0 BP 119/71 Blood Pressure Location Lt brachial Position Sitting Pulse 66 Intake Visit Reasons: 3 month follow up Intake Note: Camilla presents in the office as a 3 month follow up. CC: She states that she is not having any concerns today. Allergies fluticasone [From Flonase] Allergy (Unknown, Verified 05/04/23 13:05) glaucoma suspect Penicillins [PENICILLINS] Allergy (Unknown, Verified 05/04/23 13:05) RASH HPI 3 month follow up HPI Details LAST VISIT Constipation Continue Dulcolax and MiraLax. Patient was also encouraged to increase fluid intake and activity to promote better bowel motility. GERD (gastroesophageal reflux disease) Continue famotidine at night and pantoprazole in the morning. Patient was encouraged to avoid dietary triggers in late night snacking. Patient can try to stop taking famotidine at night time and see if she will have any symptoms. Patient can stop and use it on as needed basis IBS (irritable bowel syndrome) Improved symptoms of abdominal cramping and postprandial abdominal bloating. Continue current bowel regimen. Patient can increase fluid intake as well. Continue low FODMAP diet. Postprandial epigastric pain Patient reports that she no longer has epigastric discomfort unless she eats something that she is not supposed to. Continue avoiding culprits. I will see patient in 3 months, sooner on as needed basis. Patient is agreeable to this plan and verbalizes understanding of instructions. She was given the opportunity to ask questions and all questions answered. TODAY'S VISIT: Patient is here today for follow-up. Patient reports that she is feeling better. Reports that she is taking pantoprazole in the morning and famotidine at night time, and her symptoms of acid reflux are suppressed. Patient does however reports occasional dyspepsia. States that occasionally she will have dysphagia depending on what she eats. Patient tries who moves slowly and he well, however occasionally she will feel like food gets stuck specially rice. Encouraged to her eat small bites and drink liquids after each bite. Patient reports that Dulcolax tablets helping her to move her bowels. Patient is also taking MiraLax in the morning needed basis only as she feels like to go up is helping. Patient denies any melena, hematochezia, unintentional weight loss or ribbon like stools. Overall patient states that she is feeling better. [facility] Medical History Glaucoma suspect History of right bundle branch block Asthma Vitamin D deficiency Obesity (BMI 30-39.9) Hypertension GERD (gastroesophageal reflux disease) Chronic radicular low back pain Migraine Anemia Surgical History History of esophagogastroduodenoscopy (EGD) Hx of colonoscopy History of lumpectomy of left breast History of cataract surgery History of section Family History Father Stroke Hypertension Mother Bladder cancer CVD (cardiovascular disease) Maternal Grandfather Heart attack Maternal Uncle Mouth cancer Paternal Aunt Brain cancer Maternal Aunt Heart attack Brother Heart attack Brother Heart attack Other Anxiety Social History Household Members: Spouse and Children Housing: House Alcohol intake: never Patient Tobacco Use Status: Never used Tobacco e-Cigarette/Vaping Use: Never Used Second Hand Smoke Exposure: No service: No Current occupational status: unemployed Current occupational exposures/hazards: No Sexual orientation: Straight/Heterosexual Gender identity: Female Cognitive needs: No Hearing needs: No Vision needs: Yes Female Reproductive History Menstrual Age of Menarche: 12 Review of Systems Const Denies weight gain and Denies weight loss ENT Reports no additional complaints, Reports dysphagia (Occasional) and Denies odyn ophagia Card Reports no additional complaints Resp Reports no additional complaints GI Denies abdominal pain, Denies belching, Denies melena, Denies bloating, Denies change in bowel habits, Reports dysphagia (Occasional), Denies excessive flatus, Denies dyspepsia, Denies heartburn, Denies diarrhea, Denies loose stools, Julián es nausea, Denies odynophagia and Denies vomiting Musc Reports no additional complaints Neuro Reports no additional complaints Psych Reports no additional complaints Endo Reports no additional complaints Physical Exam Vital Signs: Last Vital Signs Pulse 66 05/04/23 13:03 BP 119/71 05/04/23 13:03 BMI result Body Mass Index 34.0 Const General: healthy appearing, no acute distress and well developed Nutritional Appearance: obese Orientation/consciousness: patient oriented x3 HEENT Head: Yes normal to inspection, Yes normocephalic and Yes atraumatic Face and sinus: Yes normal facial exam Mouth: Normal oral and palatal mucosa present Throat: Yes posterior oropharynx normal, Yes tonsils normal and Yes uvula midline Eyes General: appearance normal, both eyes and all related structures Neck Neck: Yes normal visual inspection, Yes full ROM and Yes trachea midline Thyroid: Thyroid normal Resp Effort & Inspection: normal respiratory effort, able to speak in complete sentences, no tracheal deviation and symmetric chest movement Auscultation: clear to auscultation bilaterally Cardio Rate: regular rate Heart sounds: S1 normal heart sound present and S2 normal heart sound present GI Inspection: Yes normal to inspection, No distended and Yes obesity Palpation (GI): Soft to palpation, not firm, nontender and No hepatosplenomegaly present Auscultation: normal bowel sounds General: Yes no CVA tenderness Back/Spine/Pelvis Back: no CVA tenderness Skin General skin exam: elasticity normal, turgor normal and dry skin Neuro General: patient oriented x3 Psych Appearance: grossly normal Mental Status: mental status grossly normal Assessment & Plan Assessment & Plan (1) Constipation: Code(s): K59.00 - Constipation, unspecified Qualifiers: Constipation type: chronic idiopathic constipation Qualified Code(s): K59.04 - Chronic idiopathic constipation (2) GERD (gastroesophageal reflux disease): Code(s): K21.9 - Gastro-esophageal reflux disease without esophagitis Qualifiers: Esophagitis presence: without esophagitis Qualified Code(s): K21.9 - Gastro-esophageal reflux disease without esophagitis (3) IBS (irritable bowel syndrome): Code(s): K58.9 - Irritable bowel syndrome without diarrhea Qualifiers: Irritable bowel syndrome type: without diarrhea Qualified Code(s): K58.9 - Irritable bowel syndrome without diarrhea (4) Postprandial epigastric pain: Code(s): R10.13 - Epigastric pain (5) Dysphagia: Code(s): R13.10 - Dysphagia, unspecified Qualifiers: Dysphagia type: oropharyngeal phase Qualified Code(s): R13.12 - Dysphagia, oropharyngeal phase Plan Continue avoiding dietary triggers. Patient was encouraged to chew her food and drink fluids with each bite. Continue taking pantoprazole in the morning and famotidine at bedtime. Continue avoiding dietary triggers and late night snacking. Patient can take MiraLax on as needed basis. Patient can continue taking Dulcolax daily. She was encouraged to increase fluid intake and activity to promote better bowel motility. I will see her in 4 months, sooner on as needed basis. Patient is agreeable to this plan and verbalizes understanding of instructions. She was given the opportunity to ask questions and all questions answered. Thank you for allowing participate in her care Coding Level of Care Code Est Pt Level 3 (52304) Diagnoses Chronic idiopathic constipation K59.04 Constipation type: chronic idiopathic constipation Gastroesophageal reflux disease without esophagitis K21.9 Esophagitis presence: without esophagitis Irritable bowel syndrome without diarrhea K58.9 Irritable bowel syndrome type: without diarrhea Postprandial epigastric pain R10.13 Oropharyngeal dysphagia R13.12 Dysphagia type: oropharyngeal phase Time Spent (min) 30 Comment 20 minutes spent with patient and additional 10 minutes spent reviewing her kailee rds
[2023-05-04 13:03] VITALS: BP 119/71; PULSE 66; BMI 34.0
== END 2023-05-04 13:31 | disposition home or self-care (01) ==
PROVIDERS: PCP Internal Medicine; Visit Provider Nurse Practitioner Family
DX: K59.04 Chronic idiopathic constipation (principal); K21.9 Gastro-esophageal reflux disease without esophagitis; K58.9 Irritable bowel syndrome, unspecified; R10.13 Epigastric pain; R13.12 Dysphagia, oropharyngeal phase
CPT/HCPCS: 99213

== ENCOUNTER → 2023-05-04 12:56 | Outpatient (BNVA) | payer OTHER, MEDICAID, SELFPAY | PROVIDERS: PCP Internal Medicine; Visit Provider Nurse Practitioner Family ==

== ENCOUNTER 2023-06-18 15:23 | Outpatient (AMB) | payer OTHER, MEDICAID, SELFPAY ==
--- NOTE | 2023-06-18 15:25 | A.OFFPC_ITS ---
Vital Signs 06/18/23 15:26 Height 5 ft Weight 177 lb BMI 34.6 BP 116/72 Blood Pressure Location Lt brachial Position Sitting Pulse 87 Pulse Source Pulse Oximeter Pulse Oximetry (%) 99 Oxygen Delivery Method Room Air Intake Visit Reasons: IGT Allergies fluticasone [From Flonase] Allergy (Unknown, Verified 06/18/23 15:26) glaucoma suspect Penicillins [PENICILLINS] Allergy (Unknown, Verified 06/18/23 15:26) RASH Medication List - Last Reconciled 06/18/23 by Sisi Rodrigez MD albuterol sulfate 2.5 mg (3 mL) inhalation QID PRN albuterol sulfate 90 mcg/actuation (ProAir HFA) 2 inhalations PO Q4H PRN bisacodyl (Dulcolax (bisacodyl)) 10 mg (2 x 5 mg) PO BEDTIME brimonidine 0.2% 1 drp ophthalmic (eye) Q12H budesonide-formoterol 160-4.5 mcg/actuation (Symbicort) 2 puffs inhalation BID cholecalciferol (vitamin D3) 50 mcg PO DAILY famotidine (Pepcid) 20 mg PO BEDTIME montelukast 10 mg PO BEDTIME 90 days pantoprazole 40 mg PO DAILY polyethylene glycol 3350 (Gavilax) 17 grams PO DAILY PRN rizatriptan mg PO topiramate 100 mg PO BID 90 days Tobacco use date assessed: 06/18/23 HPI IGT HPI Details 62-year-old obese female with impaired g lucose tolerance asthma hypertension GERD generalized anxiety disorder migraine and hypersomnia last seen in February 2023 patient was advised to get an in lab sleep study. Patient's colonoscopy is up-to-date mammograms up-to-date. Review of the notes has seen gastroenterology on famotidine night and pantoprazole in the morning. Constipation has MiraLax PFSH Medical History Glaucoma suspect History of right bundle branch block Asthma Vitamin D deficiency Obesity (BMI 30-39.9) Hypertension GERD (gastroesophageal reflux disease) Chronic radicular low back pain Migraine Anemia Surgical History History of esophagogastroduodenoscopy (EGD) Hx of colonoscopy History of lumpectomy of left breast History of cataract surgery History of section Family History Father Stroke Hypertension Mother Bladder cancer CVD (cardiovascular disease) Maternal Grandfather Heart attack Maternal Uncle Mouth cancer Paternal Aunt Brain cancer Maternal Aunt Heart attack Brother Heart attack Brother Heart attack Other Anxiety Social History Household Members: Spouse and Children Housing: House Alcohol intake: never Patient Tobacco Use Status: Never used Tobacco e-Cigarette/Vaping Use: Never Used Second Hand Smoke Exposure: No service: No Current occupational status: unemployed Current occupational exposures/hazards: No Sexual orientation: Straight/Heterosexual Gender identity: Female Cognitive needs: No Hearing needs: No Vision needs: Yes Female Reproductive History Menstrual Age of Menarche: 12 Questionnaire Thrive Questionnaire Date Thrive assessed: 08/27/22 AUDIT C Alcohol Use Questionnaire (AUDIT-C) 1. How often do you have a drink containing alcohol?: Never 3. How often do you have six or more drinks on one occasion?: Never Total Score: 0 RIOS-7 AMB Questionnaire RIOS-7 Date RIOS - 7 assessed: 08/27/22 Source: Developed by Drs. Stevenson Collins, Gaviota Abrams, Vincent Busby and colleagues, with an educational luis antonio from [employer]. Physical exam (Primary Care) Vital Signs: Last Vital Signs Pulse 87 06/18/23 15:26 BP 116/72 06/18/23 15:26 Pulse Ox 99 06/18/23 15:26 Oxygen Delivery Method Room Air 06/18/23 15:26 BMI result Body Mass Index 34.6 Tobacco/Smoking Status: Tobacco use Status Tobacco use date assessed 06/18/23 06/18/23 15:26 Patient Tobacco Use Status Never used Tobacco 06/18/23 15:26 e-Cigarette/Vaping Use Never Used 06/18/23 15:26 Thrive Assessment: Date of Thrive Assessment Date Thrive assessed 08/27/22 06/18/23 15:26 Const General: alert; No acute distress Eyes Conjunctivae: conjunctivae normal Resp Auscultation: clear to auscultation bilaterally Cardio Rate: regular rate Rhythm: regular rhythm GI Inspection: Yes normal to inspection Extrem General: Yes normal to inspection and No edema Office Procedures Flu Questionnaire Does the patient have a severe egg allergy?: No Does the patient have severe life threatening allergies?: No Does the patient have a fever or illness today?: No Has the patient ever had Guillain-Milroy Syndrome?: No Has the patient ever had any past reaction to a flu shot?: No Immunizations flu vacc [id number] 6mos up(PF) 60 mcg(15 mcgx4)/0.5 mL IM syringe Performing Provider: Sisi Rodrigez MD [facility] Administered by: SHEMAR Knight on 06/18/23 15:38 Dose Route Admin Location Dispensed Lot Number Expiration Date NDC Admissions Manager Rn 0.5 mL IM Left Deltoid 0.5 mL [id number] 01/16/24 [id number] [employer] VIS Given Date VIS Provided VIS Publication Date 06/18/23 Single Vaccine 21 Eligibility Eligibility Date Funding Source Not [facility] Eligible 06/18/23 Private Assessment and Plan Assessment & Plan (1) Hypertension: Comment: Blood pressure has been normal Code(s): I10 - Essential (primary) hypertension Qualifiers: Hypertension type: essential hypertension Qualified Code(s): I10 - Essential (primary) hypertension Plan: Continue with blood pressure medication. Decrease salt intake and exercise blood pressure has been normal. (2) GERD (gastroesophageal reflux disease): Code(s): K21.9 - Gastro-esophageal reflux disease without esophagitis Qualifiers: Esophagitis presence: without esophagitis Qualified Code(s): K21.9 - Gastro-esophageal reflux disease without esophagitis Plan: Avoid the foods that causes that usually spicy foods, tomato products, juices, coffee, soda and foods that your sensitive to. After eating do not lie down, allow 3-4 hours before in lie down. And keep the head of bed above 30 degrees to avoid the acid from going up. (3) Migraine: Code(s): G43.909 - Migraine, unspecified, not intractable, without status migrainosus Qualifiers: Migraine type: without aura Status migrainosus presence: without status migrainosus Intractability: not intractable Qualified Code(s): G43.009 - Migraine without aura, not intractable, without status migrainosus Plan: Need for adequate sleep, eat healthy and keep well hydrated (4) Obesity (BMI 30-39.9): Comment: With hx of IFG and constipation Code(s): E66.9 - Obesity, unspecified Plan: Diet and exercise (5) Asthma: Code(s): J45.909 - Unspecified asthma, uncomplicated Qualifiers: Asthma severity: mild Asthma persistence: intermittent Asthma complication type: uncomplicated Qualified Code(s): J45.20 - Mild intermittent asthma, uncomplicated Plan: Continue with inhaler and has Symbicort rinse mouth after using (6) Constipation: Code(s): K59.00 - Constipation, unspecified Qualifiers: Constipation type: chronic idiopathic constipation Qualified Code(s): K59.04 - Chronic idiopathic constipation Plan: Three rules for constipation 1. Diet need to have a high fiber diet less of meat 2. Increase oral fluids 3. Exercise patient has seen gastroenterology and was given MiraLax (7) Impaired fasting blood sugar: Code(s): R73.01 - Impaired fasting glucose Plan: Decrease the amount of carbohydrate intake, pasta, bread, rice and potatoes are all sugar and that is aside from all the sweet stuff, remember that fruits are good but they are Sweet also. (8) Generalized anxiety disorder: Code(s): F41.1 - Generalized anxiety disorder Plan: Stable (9) Hypersomnia: Code(s): G47.10 - Hypersomnia, unspecified Plan: rescheduled (10) Low back pain: Code(s): M54.50 - Low back pain, unspecified Plan: on diclofenac get Orders: Orders Influenza [id number] Immunization Today Z23 - Encounter for immunization Medications: Changed From topiramate 100 mg PO BID To topiramate 100 mg PO BID 90 days 180 tabs 2RF Coding Level of Care Code Est Pt Level 4 (47856) Diagnoses Essential hypertension I10 Hypertension type: essential hypertension Gastroesophageal reflux disease without esophagitis K21.9 Esophagitis presence: without esophagitis Migraine without aura and without status migrainosus, not intractable G43.009 Migraine type: without aura Status migrainosus presence: without status migrainosus Intractability: not intractable Obesity (BMI 30-39.9) E66.9 Mild intermittent asthma without complication J45.20 Asthma severity: mild Asthma persistence: intermittent Asthma complication type: uncomplicated Chronic idiopathic constipation K59.04 Constipation type: chronic idiopathic constipation Impaired fasting blood sugar R73.01 Generalized anxiety disorder F41.1 Hypersomnia G47.10 Low back pain M54.50
[2023-06-18 15:26] VITALS: BP 116/72; PULSE 87; O2SAT 99; BMI 34.6
== END 2023-06-18 15:58 | disposition home or self-care (01) ==
PROVIDERS: PCP Internal Medicine; Visit Provider Internal Medicine
DX: I10 Essential (primary) hypertension (principal); E66.9 Obesity, unspecified; Z68.34 Body mass index [BMI] 34.0-34.9, adult; Z23 Encounter for immunization; K21.9 Gastro-esophageal reflux disease without esophagitis; G43.009 Migraine without aura, not intractable, without status migrainosus; J45.20 Mild intermittent asthma, uncomplicated; K59.04 Chronic idiopathic constipation; R73.01 Impaired fasting glucose; F41.1 Generalized anxiety disorder; G47.10 Hypersomnia, unspecified; M54.50 Low back pain, unspecified
CPT/HCPCS: 90471; 90686; 99214

== ENCOUNTER 2023-08-12 13:00 | Outpatient (AMB) | payer OTHER, SELFPAY ==
--- NOTE | 2023-08-12 13:03 | MHC.OFFVIS ---
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 She is doing well with concerns: Right breast pain at 09:00 o'clock, denies any injuries, biopsies or surgeries on the right breast. Attempting to eat a healthy diet with calcium and vitamin D and stays active with exercise. Currently sexually active. Denies any vaginal dryness or irritation. STI testing offered; she declines. Last pap smear; 2021. Last mammogram; 10/2022. Colonoscopy is UTD. Denies any family history of breast, ovarian or colon cancer. [facility] Medical History Glaucoma suspect History of right bundle branch block Asthma Vitamin D deficiency Obesity (BMI 30-39.9) Hypertension GERD (gastroesophageal reflux disease) Chronic radicular low back pain Migraine Anemia Surgical History History of esophagogastroduodenoscopy (EGD) Hx of colonoscopy History of lumpectomy of left breast History of cataract surgery History of section Family History Father Stroke Hypertension Mother Bladder cancer CVD (cardiovascular disease) Maternal Grandfather Heart attack Maternal Uncle Mouth cancer Paternal Aunt Brain cancer Maternal Aunt Heart attack Brother Heart attack Brother Heart attack Other Anxiety Social History Household Members: Spouse and Children Housing: House Alcohol intake: never Patient Tobacco Use Status: Never used Tobacco e-Cigarette/Vaping Use: Never Used Second Hand Smoke Exposure: No service: No Current occupational status: unemployed Current occupational exposures/hazards: No Sexual orientation: Straight/Heterosexual Gender identity: Female Cognitive needs: No Hearing needs: No Vision needs: Yes Female Reproductive History Menstrual Age of Menarche: 12 Total pregnancies: 3 Full term: 2 Number of Living Children: 2 Date of last pap smear: 08/08/21 (neg pap and hpv) Date of Mammogram: 10/30/22 (birad 1) Review of Systems Const All systems reviewed & are unremarkable except as noted in HPI and below Reports as per HPI Eyes Reports no additional complaints ENT Reports no additional complaints Card Reports no additional complaints Resp Reports no additional complaints GI Reports as per HPI and Reports no additional complaints Reports as per HPI Musc Reports no additional complaints Skin/Breast Reports as per HPI Neuro Reports no additional complaints Psych Reports no additional complaints Endo Reports no additional complaints Chaim/Lymph Reports no additional complaints Aller/Immun Reports no additional complaints Physical Exam Vital Signs: Last Vital Signs BP 124/78 08/12/23 13:04 BMI result Body Mass Index 34.8 Const General: cooperative, healthy appearing, no acute distress, well developed and alert Orientation/consciousness: patient oriented x3 HEENT Head: Yes normal to inspection Eyes General: appearance normal, both eyes and all related structures Neck Neck: Yes normal visual inspection Thyroid: Thyroid normal Chest Chest palpation & inspection: normal inspection of the chest and other (no puckering, dimpling, peau de orange, retraction, discharge, masses) Breast/axilla inspection: normal inspection of the breasts Breast/axilla palpation: normal palpation of the breasts Resp Effort & Inspection: normal respiratory effort GI Inspection: Yes normal to inspection Palpation (GI): Soft to palpation Rectal Exam - Female: deferred General: Yes bladder normal to palpation External Female Exam: normal external appearance and normal appearance of the urethra Speculum Exam - Vagina: normal appearance of the vagina, normal palpation, normal vaginal discharge and vagina atrophic Speculum Exam - Cervix: normal appearance of the cervix and normal palpation Bimanual exam- vagina & uterus: normal bimanual exam, normal palpation, uterine size normal, bladder normal to palpation, normal palpation and non-tender Bimanual Exam- Adnexa, other: no masses Skin General skin exam: no rashes or lesions noted Rashes: no rashes Neuro General: patient oriented x3 Cognition (Neuro): normal cognition Extrem General: Yes normal to inspection Psych Attitude: cooperative Thought process: Normal thought process present Assessment & Plan Assessment & Plan (1) Encounter for well woman exam with routine gynecological exam: Code(s): Z01.419 - Encounter for gynecological examination (general) (routine) without abnormal findings (2) Breast pain, right: Code(s): N64.4 - Mastodynia Plan Discussed: Current recommendations for pap smears per ASCCP guidelines. Breast awareness, periodic self breast exams and yearly mammogram. Maintain a healthy lifestyle, well balanced diet including Calcium 1,200 mg and Vitamin D 600 IU daily, and routine exercise. Contact the office with any postmenopausal bleeding. Plan right breast ultrasound and diagnostic mammogram. Patient verbalizes understanding and agrees to the plan of care. She was given opportunity to ask questions and all questions were answered to the best of my ability. 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 This note is constructed using voice recognition software. While every effort has been made to ensure accuracy, foam charger errors may have been included. Orders: Orders US breast RT complete Today N64.4 - Mastodynia MM tomosynthesis diagnostic BI Today N64.4 - Mastodynia Coding Level of Care Code Est Pt Prev Care 40-64y(99861) Diagnoses Encounter for well woman exam with routine gynecological exam Z01.419 Breast pain, right N64.4
[2023-08-12 13:04] VITALS: BP 124/78; BMI 34.8
== END 2023-08-12 13:30 | disposition home or self-care (01) ==
PROVIDERS: Visit Provider Advanced Practice Midwife
DX: Z01.419 Encounter for gynecological examination (general) (routine) without abnormal findings (principal); N64.4 Mastodynia
CPT/HCPCS: 99396

== ENCOUNTER → 2023-08-12 13:00 | Outpatient (BNVA) | payer OTHER, MEDICAID, SELFPAY | PROVIDERS: Visit Provider Advanced Practice Midwife | DX: Z01.419 Encounter for gynecological examination (general) (routine) without abnormal findings (principal); N64.4 Mastodynia | CPT/HCPCS: 99396 ==

== ENCOUNTER 2023-08-23 14:26 | Outpatient (REF) | payer OTHER, SELFPAY ==
--- NOTE | ~2023-08-23 | MM_ITS ---
EXAMINATION: MM DIAGNOSTIC DIGITAL BREAST TOMOSYNTHESIS, BILATERAL US BREAST LIMITED, RIGHT MAMMOGRAPHY: CLINICAL INFORMATION: 62-year-old female complaining of right breast pain superior 9:00 region. This area was marked by the technologist. Patient also due for bilateral screening. COMPARISON: Mammography: 10/30/2022, 10/28/2021, 10/17/2020, 10/03/2018, and exams dating back to 2013. TECHNIQUE: Digital breast tomosynthesis is performed in both the craniocaudal and mediolateral oblique views along with computer-aided detection (CAD). Synthesized 2D images are generated from the tomosynthesis. FINDINGS: There are scattered areas of fibroglandular density (ACR BI-RADS breast composition Category b). There is no mammographic abnormality in the region of 9:00 far lateral breast pain, right breast. There are small circumscribed 3 mm oval masses in the anterior regions of both breasts, stable from prior exams, most likely representing small cysts. These are benign. There is a stable focus of likely dystrophic calcifications in the upper outer right breast middle one third. There are no suspicious masses, suspicious grouped calcifications, or areas of architectural distortion in either breast. The parenchymal pattern is stable from prior exams. There is no axillary or skin abnormality detected. ULTRASOUND: CLINICAL INFORMATION: Right breast pain superior 9:00 region. COMPARISON: No prior breast ultrasound. TECHNIQUE: Targeted sonographic evaluation was performed using a high frequency linear transducer. Exam was focused on the right breast upper outer quadrant to include the region of breast pain. Selected archived documentation. FINDINGS: RIGHT BREAST: There is a mixture of fatty and fibroglandular tissue. No suspicious mass is seen. There is no pathologic acoustic shadowing. There is no pathologic adenopathy. No cystic abnormality. There is no ultrasonographic abnormality in the region of right breast pain, 9:00 axis far lateral right breast. MM/MM tomosynthesis diagnostic BI IMPRESSION: There are no findings in either breast suspicious for malignancy. There are stable benign findings. There is no mammographic or ultrasonographic abnormality in the region of right breast pain 9:00 axis. Recommend clinical management for this complaint. Otherwise, recommend resuming annual screening mammography in one year. OVERALL ASSESSMENT: Mammography: BI-RADS 2 - Benign Findings Ultrasound: BI-RADS 2 - Benign Findings RECOMMENDATION: 1 year F/U Results were provided to the patient at time of visit by the technologist. This patient's information was entered into a reminder system with a target due date for their next mammogram.
== END 2023-08-23 14:27 | disposition home or self-care (01) ==
LOC: HO.MAMMO 14:26
PROVIDERS: PCP Internal Medicine; Visit Provider Advanced Practice Midwife
DX: N64.4 Mastodynia (principal)
CPT/HCPCS: 76642; 77062; 77066

== ENCOUNTER → 2023-08-23 14:30 | Outpatient (BNV) | payer OTHER, SELFPAY | PROVIDERS: PCP Internal Medicine; Visit Provider Radiology Diagnostic Radiology | DX: N64.4 Mastodynia (principal) | CPT/HCPCS: 76642; 77062; 77066 ==

== ENCOUNTER 2023-09-07 12:58 | Outpatient (AMB) | payer OTHER, SELFPAY ==
--- NOTE | 2023-09-07 13:02 | A.OFFVIS_ITS ---
Intake Vital Signs 09/07/23 13:03 Height 5 ft Weight 178 lb BMI 34.8 BP 119/70 Blood Pressure Location Lt brachial Position Sitting Pulse 80 Pulse Source Monitor Intake Visit Reasons: 4 month follow up CIC, Gerd, IBS Intake Note: Patient states everything is going well no GI concerns for today. 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 Patient was encouraged to chew her food and drink fluids with each bite. Continue taking pantoprazole in the morning and famotidine at bedtime. Continue avoiding dietary triggers and late night snacking. Patient can take MiraLax on as needed basis. Patient can continue taking Dulcolax daily. She was encouraged to increase fluid intake and activity to promote better bowel motility. I will see her in 4 months, sooner on as needed basis. Patient is agreeable to this plan and verbalizes understanding of instructions. She was given the opportunity to ask questions and all questions answered. TODAY'S VISIT Patient is here today for follow-up. Patient reports that since the last time I have seen her she has been doing well. Patient is taking pantoprazole in the morning and famotidine and bedtime. Symptoms of acid reflux are suppressed for the most part. Occasional acid reflux depending on what she eats, however for the most part patient reports that she has been feeling well. Patient denies any abdominal pain or discomfort. Denies any abdominal bloating. Reports that she has been moving her bowels well while taking Dulcolax. Patient states that she moves her bowels daily. Denies melena, hematochezia, unintentional weight loss or ribbon like stools. Patient denies any dyspepsia, dysphagia or odynophagia. ? [facility] Medical History Glaucoma suspect History of right bundle branch block Asthma Vitamin D deficiency Obesity (BMI 30-39.9) Hypertension GERD (gastroesophageal reflux disease) Chronic radicular low back pain Migraine Anemia Surgical History History of esophagogastroduodenoscopy (EGD) Hx of colonoscopy History of lumpectomy of left breast History of cataract surgery History of section Family History Father Stroke Hypertension Mother Bladder cancer CVD (cardiovascular disease) Maternal Grandfather Heart attack Maternal Uncle Mouth cancer Paternal Aunt Brain cancer Maternal Aunt Heart attack Brother Heart attack Brother Heart attack Other Anxiety Social History Household Members: Spouse and Children Housing: House Alcohol intake: never Patient Tobacco Use Status: Never used Tobacco e-Cigarette/Vaping Use: Never Used Second Hand Smoke Exposure: No service: No Current occupational status: unemployed Current occupational exposures/hazards: No Sexual orientation: Straight/Heterosexual Gender identity: Female Cognitive needs: No Hearing needs: No Vision needs: Yes Female Reproductive History Menstrual Age of Menarche: 12 Review of Systems Const Denies weight gain and Denies weight loss ENT Reports no additional complaints, Denies dysphagia and Denies odynophagia Card Reports no additional complaints Resp Reports no additional complaints GI Denies abdominal pain, Denies belching, Denies melena, Denies bloating, Denies change in bowel habits, Denies dysphagia, Denies excessive flatus, Denies dyspepsia, Denies heartburn, Denies diarrhea, Denies loose stools, Denies nausea, Denies odynophagia and Denies vomiting Reports no additional complaints Musc Reports no additional complaints Neuro Reports no additional complaints Psych Reports no additional complaints Endo Reports no additional complaints Physical Exam Vital Signs: Last Vital Signs Pulse 80 09/07/23 13:03 BP 119/70 09/07/23 13:03 BMI result Body Mass Index 34.8 Const General: healthy appearing, no acute distress and well developed Nutritional Appearance: well nourished Orientation/consciousness: patient oriented x3 Resp Effort & Inspection: normal respiratory effort, able to speak in complete sentences, no tracheal deviation and symmetric chest movement Auscultation: clear to auscultation bilaterally Cardio Rate: regular rate GI Inspection: Yes normal to inspection and No distended Palpation (GI): Soft to palpation, not firm, nontender and No hepatosplenomegaly present Auscultation: normal bowel sounds General: Yes no CVA tenderness Back/Spine/Pelvis Back: no CVA tenderness Skin General skin exam: elasticity normal, turgor normal and dry skin Neuro General: patient oriented x3 Psych Appearance: grossly normal Mental Status: mental status grossly normal Assessment & Plan Assessment & Plan (1) Constipation: Code(s): K59.00 - Constipation, unspecified Qualifiers: Constipation type: chronic idiopathic constipation Qualified Code(s): K59.04 - Chronic idiopathic constipation (2) GERD (gastroesophageal reflux disease): Code(s): K21.9 - Gastro-esophageal reflux disease without esophagitis Qualifiers: Esophagitis presence: without esophagitis Qualified Code(s): K21.9 - Gastro-esophageal reflux disease without esophagitis (3) IBS (irritable bowel syndrome): Code(s): K58.9 - Irritable bowel syndrome without diarrhea Qualifiers: Irritable bowel syndrome type: without diarrhea Qualified Code(s): K58.9 - Irritable bowel syndrome without diarrhea (4) Postprandial epigastric pain: Code(s): R10.13 - Epigastric pain (5) Dysphagia: Code(s): R13.10 - Dysphagia, unspecified Qualifiers: Dysphagia type: pharyngoesophageal phase Qualified Code(s): R13.14 - Dysphagia, pharyngoesophageal phase Plan Patient reports symptoms of dysphagia improved. Patient is taking pantoprazole in the morning and famotidine at bedtime. Continue current treatment. Discussed with patient avoiding dietary triggers late night snacking. Staying upright for minimum 3 hours after meals discussed with patient. Continue taking Dulcolax daily. Patient was encouraged to increase fluid intake and activity to promote better bowel motility. Patient will follow-up in the office in 6 months, sooner on as needed basis. Patient is agreeable to this plan and ve rbalizes understanding of instructions. She was given the opportunity to ask questions and all questions answered. Thank you for allowing me to participate in her care Medications: Refilled bisacodyl (Dulcolax (bisacodyl)) 10 mg (2 x 5 mg) PO BEDTIME 180 tabs 4RF pantoprazole take one tablet half an hour before breakfast 40 mg PO DAILY 90 tabs 2RF K21.9 - Gastro-esophageal reflux disease without esophagitis famotidine (Pepcid) 20 mg PO BEDTIME 90 tabs 2RF K21.9 - Gastro-esophageal reflux disease without esophagitis Coding Level of Care Code Est Pt Level 3 (74164) Diagnoses Chronic idiopathic constipation K59.04 Constipation type: chronic idiopathic constipation Gastroesophageal reflux disease without esophagitis K21.9 Esophagitis presence: without esophagitis Irritable bowel syndrome without diarrhea K58.9 Irritable bowel syndrome type: without diarrhea Postprandial epigastric pain R10.13 Pharyngoesophageal dysphagia R13.14 Dysphagia type: pharyngoesophageal phase Time Spent (min) 30 Comment 20 minutes spent with patient and additional 10 minutes spent reviewing her records
[2023-09-07 13:03] VITALS: BP 119/70; PULSE 80; BMI 34.8
== END 2023-09-07 13:30 | disposition home or self-care (01) ==
PROVIDERS: PCP Internal Medicine; Visit Provider Nurse Practitioner Family
DX: K59.04 Chronic idiopathic constipation (principal); K21.9 Gastro-esophageal reflux disease without esophagitis; K58.9 Irritable bowel syndrome, unspecified; R10.13 Epigastric pain; R13.14 Dysphagia, pharyngoesophageal phase
CPT/HCPCS: 99213

== ENCOUNTER → 2023-09-07 12:58 | Outpatient (BNVA) | payer OTHER, SELFPAY | PROVIDERS: PCP Internal Medicine; Visit Provider Nurse Practitioner Family | DX: K59.04 Chronic idiopathic constipation (principal); K21.9 Gastro-esophageal reflux disease without esophagitis; K58.9 Irritable bowel syndrome, unspecified; R10.13 Epigastric pain; R13.14 Dysphagia, pharyngoesophageal phase | CPT/HCPCS: 99212 ==

== ENCOUNTER 2023-09-10 10:24 | Outpatient (AMB) | payer OTHER, SELFPAY ==
--- NOTE | 2023-09-10 10:25 | A.OFFVIS_ITS ---
Intake Intake Visit Reasons: Breast US follow up Telephone Worker Required: Yes Telephone Worker Language: Hall Worker Name: Carly STATON Information Interpreted: non-clinical & clinical Instrument Repairer Helper: Instrument Repairer Helper Present Allergies fluticasone [From Flonase] Allergy (Unknown, Verified 09/10/23 10:25) glaucoma suspect Penicillins [PENICILLINS] Allergy (Unknown, Verified 09/10/23 10:25) RASH Is last menstrual period known: Yes Post menopausal: Yes HPI HPI Comments History of Present Illness Details [facility] visit 10:42-10:49. Phone call due to Covid 19 Pandemic. I spent 7 minutes speaking with the patient on the phone plus an additional 5 minutes reviewing the chart and 5 minutes updating the medical record for a total of 17minutes. Audio portion of the video was discharged functional and resulted in a frozen screen. The visit was completed with a telephone call in addition to the frozen screen. Patient presents via phone to discuss: Ultrasound findings for breast and diagnostic mammogram due to a history of breast pain on the right breast. She reports the breast pain has not worsened, is random intermittent. She denies wearing an underwire bra or a history of previous breast injury. [facility] Medical History Glaucoma suspect History of right bundle branch block Asthma Vitamin D deficiency Obesity (BMI 30-39.9) Hypertension GERD (gastroesophageal reflux disease) Chronic radicular low back pain Migraine Anemia Surgical History History of esophagogastroduodenoscopy (EGD) Hx of colonoscopy History of lumpectomy of left breast History of cataract surgery History of section Family History Father Stroke Hypertension Mother Bladder cancer CVD (cardiovascular disease) Maternal Grandfather Heart attack Maternal Uncle Mouth cancer Paternal Aunt Brain cancer Maternal Aunt Heart attack Brother Heart attack Brother Heart attack Other Anxiety Social History Household Members: Spouse and Children Housing: House Alcohol intake: never Patient Tobacco Use Status: Never used Tobacco e-Cigarette/Vaping Use: Never Used Second Hand Smoke Exposure: No service: No Current occupational status: unemployed Current occupational exposures/hazards: No Sexual orientation: Straight/Heterosexual Gender identity: Female Cognitive needs: No Hearing needs: No Vision needs: Yes Female Reproductive History Menstrual Age of Menarche: 12 Review of Systems Const All systems reviewed & are unremarkable except as noted in HPI and below Endo Reports no additional complaints Physical Exam Const General: cooperative, healthy appearing and no acute distress Psych Appearance: well kempt Attitude: cooperative Thought process: Normal thought process present Results Reviewed Results Reviewed: [address] [place] [address] Ultrasound Report Signed Patient: Camilla Golden MR#: [id number] : 1960 Acct:[id number] Age/Sex: 62 / F ADM Date: 08/23/23 Loc: HO.MAMMO Attending Dr: Rubia Barrera CNM Ordering Physician: Rubia Barrera CNM Date of Service: 08/23/23 Procedure(s): US breast RT limited mamm only Accession Number(s): [id number] cc: Rubia Barrera CNM; Sisi Rodrigez MD~ EXAMINATION: MM DIAGNOSTIC DIGITAL BREAST TOMOSYNTHESIS, BILATERAL US BREAST LIMITED, RIGHT MAMMOGRAPHY: CLINICAL INFORMATION: 62-year-old female complaining of right breast pain superior 9:00 region. This area was marked by the technologist. Patient also due for bilateral screening. COMPARISON: Mammography: 10/30/2022, 10/28/2021, 10/17/2020, 10/03/2018, and exams dating back to 2013. TECHNIQUE: Digital breast tomosynthesis is performed in both the craniocaudal and mediolateral oblique views along with computer-aided detection (CAD). Synthesized 2D images are generated from the tomosynthesis. FINDINGS: There are scattered areas of fibroglandular density (ACR BI-RADS breast composition Category b). There is no mammographic abnormality in the region of 9:00 far lateral breast pain, right breast. There are small circumscribed 3 mm oval masses in the anterior regions of both breasts, stable from prior exams, most likely representing small cysts. These are benign. There is a stable focus of likely dystrophic calcifications in the upper outer right breast middle one third. There are no suspicious masses, suspicious grouped calcifications, or areas of architectural distortion in either breast. The parenchymal pattern is stable from prior exams. There is no axillary or skin abnormality detected. ULTRASOUND: CLINICAL INFORMATION: Right breast pain superior 9:00 region. COMPARISON: No prior breast ultrasound. TECHNIQUE: Targeted sonographic evaluation was performed using a high frequency linear transducer. Exam was focused on the right breast upper outer quadrant to include the region of breast pain. Selected archived documentation. FINDINGS: RIGHT BREAST: There is a mixture of fatty and fibroglandular tissue. No suspicious mass is seen. There is no pathologic acoustic shadowing. There is no pathologic adenopathy. No cystic abnormality. There is no ultrasonographic abnormality in the region of right breast pain, 9:00 axis far lateral right breast. US/US breast RT limited mamm only IMPRESSION: There are no findings in either breast suspicious for malignancy. There are stable benign findings. There is no mammographic or ultrasonographic abnormality in the region of right breast pain 9:00 axis. Recommend clinical management for this complaint. Otherwise, recommend resuming annual screening mammography in one year. OVERALL ASSESSMENT: Mammography: BI-RADS 2 - Benign Findings Ultrasound: BI-RADS 2 - Benign Findings RECOMMENDATION: 1 year F/U Results were provided to the patient at time of visit by the technologist. This patient's information was entered into a reminder system with a target due date for their next mammogram. Dictated By: Shan Oh MD Signed By: <Electronically signed by Shan Oh MD in OV> 08/23/23 1641 DD/ 1536 TD/TT: Vacuum Pan Tender: Assessment & Plan Assessment & Plan (1) Breast pain, right: Code(s): N64.4 - Mastodynia Plan Discussed: Ultrasound and mammogram findings were normal advised to follow up if needed: if any increase in pain or any unusual findings to notify the office for a sooner evaluation. Discussed comfort measures, [id number] Tylenol and possibly a heating pad if helpful p.r.n.. Continue to wear a supportive bra undergarment. All of her questions and concerns were addressed to the best of my ability and shared decision making. She is agreeable to the plan of care. Annual exam July 2024. This note is constructed using voice recognition software. While every effort has been made to ensure accuracy, field service supervisor errors may have been included. Telehealth Telehealth Location of provider rendering services: practice address Location of patient: address on file Patient Identification confirmed using: Name, : Yes Telehealth method: video Patient verbally consented to treatment: Yes Patient verbally consented to billing insurance company: Yes Patient informed of any privacy concerns related to visit: Yes Coding Level of Care Code Tele Est Pt Level 3 (31480) Diagnoses Breast pain, right N64.4
== END 2023-09-10 11:09 | disposition home or self-care (01) ==
LOC: HO.HWS 10:24
PROVIDERS: PCP Internal Medicine; Visit Provider Advanced Practice Midwife
DX: N64.4 Mastodynia (principal)
CPT/HCPCS: 99213

== ENCOUNTER → 2023-09-10 10:24 | Outpatient (BNVA) | payer OTHER, SELFPAY | PROVIDERS: PCP Internal Medicine; Visit Provider Advanced Practice Midwife ==

== ENCOUNTER 2023-09-23 15:25 | Outpatient (AMB) | payer OTHER, SELFPAY ==
[2023-09-23 15:27] VITALS: BP 132/78; PULSE 82; O2SAT 100; BMI 35.0
--- NOTE | 2023-09-23 15:27 | A.OFFPC_ITS ---
Vital Signs 09/23/23 15:27 Height 5 ft Weight 179 lb BMI 35.0 BP 132/78 Blood Pressure Location Lt brachial Position Sitting Pulse 82 Pulse Source Pulse Oximeter Pulse Oximetry (%) 100 Oxygen Delivery Method Room Air Intake Visit Reasons: asthma , gerd, migraine Intake Note: Patient is here to follow up on asthma, gerd, migraine Configuration Management Advisor Required: No Allergies fluticasone [From Flonase] Allergy (Unknown, Verified 09/23/23 15:27) glaucoma suspect Penicillins [PENICILLINS] Allergy (Unknown, Verified 09/23/23 15:27) RASH Medication List - Last Reconciled 09/23/23 by Sisi Ordonez Po, albuterol sulfate 2.5 mg (3 mL) inhalation QID PRN albuterol sulfate 90 mcg/actuation (ProAir HFA) 2 inhalations PO Q4H PRN bisacodyl (Dulcolax (bisacodyl)) 10 mg (2 x 5 mg) PO BEDTIME brimonidine 0.2% 1 drp ophthalmic (eye) Q12H cholecalciferol (vitamin D3) 50 mcg PO DAILY cyclobenzaprine 10 mg PO DAILY famotidine (Pepcid) 20 mg PO BEDTIME fluticasone propion-salmeterol 250-50 mcg/dose (Wixela Inhub) 1 inh inhalation BID montelukast 10 mg PO BEDTIME 90 days pantoprazole 40 mg PO DAILY polyethylene glycol 3350 (Gavilax) 17 grams PO DAILY PRN rizatriptan mg PO topiramate 100 mg PO BID 90 days Tobacco use date assessed: 09/23/23 Dental Screening Dental Screen Date: 09/23/23 HPI asthma , gerd, migraine HPI Details 62 year old obese female with hypertensi on GERD migraine asthma impaired glucose tolerance and generalized anxiety disorder last seen in June 2023. Patient's colonoscopy is due next year mammogram is up-to-date. Patient had some breast pain and was sent to gynecology had an ultrasound done this was negative. Patient also follows up with Gastroenterology chronic idiopathic constipation with GERD IBS patient has been given pantoprazole and famotidine which helped with the constipation Dulcolax being taken. [phone] ([id number])under controlconstipation. didcussed about the breast mass. as for the asthma controlled right now. complains of chest pain 2 months R side of body, dizzy - r chest radiating to the R ised of the neck felt heavy. states sitting down only PFSH Medical History Glaucoma suspect History of right bundle branch block Asthma Vitamin D deficiency Obesity (BMI 30-39.9) Hypertension GERD (gastroesophageal reflux disease) Chronic radicular low back pain Migraine Anemia Surgical History History of esophagogastroduodenoscopy (EGD) Hx of colonoscopy History of lumpectomy of left breast History of cataract surgery History of section Family History Father Stroke Hypertension Mother Bladder cancer CVD (cardiovascular disease) Maternal Grandfather Heart attack Maternal Uncle Mouth cancer Paternal Aunt Brain cancer Maternal Aunt Heart attack Brother Heart attack Brother Heart attack Other Anxiety Social History Household Members: Spouse and Children Housing: House Alcohol intake: never Patient Tobacco Use Status: Never used Tobacco e-Cigarette/Vaping Use: Never Used Second Hand Smoke Exposure: No service: No Current occupational status: unemployed Current occupational exposures/hazards: No Sexual orientation: Straight/Heterosexual Gender identity: Female Cognitive needs: No Hearing needs: No Vision needs: Yes Female Reproductive History Menstrual Age of Menarche: 12 Questionnaire Thrive Questionnaire Date Thrive assessed: 09/23/23 I am a: Patient What is your living situation today?: I have a steady place to live Within the past 12 months, did the food you bought not last and you didn't have the money to get more?: Never true Within the past 12 months, did you worry whether your food would run out before you got money to buy more?: Never true Do you have trouble paying for medicines?: No Do you have trouble getting transportation to medical appointments?: No Do you have trouble paying your heating and electricity bill?: No Do you have trouble taking care of your child, family member or friend?: No Do you have trouble with day-to-day activities such as bathing, preparing meals, shopping, managing finances, etc.?: No Are you currently unemployed and looking for a job?: No Are you interested in more education?: No Please select the resources that you would like help with: None THRIVE Score: 0 AUDIT C Alcohol Use Questionnaire (AUDIT-C) 1. How often do you have a drink containing alcohol?: Never 3. How often do you have six or more drinks on one occasion?: Never Total Score: 0 RIOS-7 AMB Questionnaire RIOS-7 Date RIOS - 7 assessed: 09/23/23 Source: Developed by Drs. Stevenson Collins, Gaviota Abrams, Vincent Busby and colleagues, with an educational luis antonio from [employer]. Physical exam (Primary Care) Vital Signs: Last Vital Signs Pulse 82 09/23/23 15:27 BP 132/78 09/23/23 15:27 Pulse Ox 100 09/23/23 15:27 Oxygen Delivery Method Room Air 09/23/23 15:27 BMI result Body Mass Index 35.0 Tobacco/Smoking Status: Tobacco use Status Tobacco use date assessed 09/23/23 09/23/23 15:28 Patient Tobacco Use Status Never used Tobacco 09/23/23 15:28 e-Cigarette/Vaping Use Never Used 09/23/23 15:28 Thrive Assessment: Date of Thrive Assessment Date Thrive assessed 09/23/23 09/23/23 15:28 Const General: alert; No acute distress Eyes Conjunctivae: conjunctivae normal Resp Auscultation: clear to auscultation bilaterally Cardio Rate: regular rate Rhythm: regular rhythm GI Inspection: Yes normal to inspection Extrem General: Yes normal to inspection and No edema Assessment and Plan Assessment & Plan (1) GERD (gastroesophageal reflux disease): Code(s): K21.9 - Gastro-esophageal reflux disease without esophagitis Qualifiers: Esophagitis presence: without esophagitis Qualified Code(s): K21.9 - Gastro-esophageal reflux disease without esophagitis Plan: Avoid the foods that causes that usually spicy foods, tomato products, juices, coffee, soda and foods that your sensitive to. After eating do not lie down, allow 3-4 hours before in lie down. And keep the head of bed above 30 degrees to avoid the acid from going up. (2) Migraine: Code(s): G43.909 - Migraine, unspecified, not intractable, without status migrainosus Qualifiers: Intractability: not intractable Migraine type: without aura Status migrainosus presence: without status migrainosus Qualified Code(s): G43.009 - Migraine without aura, not intractable, without status migrainosus Plan: Keep well hydrated have enough sleep and on medication as needed (3) Obesity (BMI 30-39.9): Comment: With hx of IFG and constipation Code(s): E66.9 - Obesity, unspecified Plan: Diet and exercise (4) Asthma: Code(s): J45.909 - Unspecified asthma, uncomplicated Qualifiers: Asthma complication type: uncomplicated Asthma persistence: intermittent Asthma severity: mild Qualified Code(s): J45.20 - Mild intermittent asthma, uncomplicated Plan: Continue with the inhaler as needed (5) Impaired fasting blood sugar: Code(s): R73.01 - Impaired fasting glucose Plan: Decrease the amount of carbohydrate intake, pasta, bread, rice and potatoes are all sugar and that is aside from all the sweet stuff, remember that fruits are good but they are Sweet also. Recent blood work hemoglobin A1c is better (6) Generalized anxiety disorder: Code(s): F41.1 - Generalized anxiety disorder Plan: Continue with present medication (7) Chest pain: Code(s): R07.9 - Chest pain, unspecified Plan: workup advised Orders: Orders Complete Blood Count Auto Diff Today R73.01 - Impaired fasting glucose Vitamin D 25-OH Total Today R73.01 - Impaired fasting glucose CA stress test Today R07.9 - Chest pain, unspecified ECG 12 lead EKG Today R07.9 - Chest pain, unspecified XR chest 2V Today R07.9 - Chest pain, unspecified Comprehensive Met. Panel Today R73.01 - Impaired fasting glucose Free T4 (Free Thyroxine) Today R73.01 - Impaired fasting glucose Hemoglobin A1c Today R73.01 - Impaired fasting glucose Thyroid Stimulating Hormone Today R73.01 - Impaired fasting glucose Lipid Panel Today E78.00 - Pure hypercholesterolemia, unspecified, R73.01 - Impaired fasting glucose Vitamin B12 and Folate Today R73.01 - Impaired fasting glucose Medications: New fluticasone propion-salmeterol 250-50 mcg/dose (Wixela Inhub) 1 inh inhalation BID 60 ea 9RF J45.20 - Mild intermittent asthma, uncomplicated Discontinued budesonide-formoterol 160-4.5 mcg/actuation (Symbicort) Discontinued Reason: Doctor's Order 2 puffs inhalation BID 10.2 grams 5RF J45.20 - Mild intermittent asthma, uncomplicated Coding Level of Care Code Est Pt Level 4 (86667) Diagnoses Gastroesophageal reflux disease without esophagitis K21.9 Esophagitis presence: without esophagitis Migraine without aura and without status migrainosus, not intractable G43.009 Intractability: not intractable Migraine type: without aura Status migrainosus presence: without status migrainosus Obesity (BMI 30-39.9) E66.9 Mild intermittent asthma without complication J45.20 Asthma complication type: uncomplicated Asthma persistence: intermittent Asthma severity: mild Impaired fasting blood sugar R73.01 Generalized anxiety disorder F41.1 Chest pain R07.9
== END 2023-09-23 16:28 | disposition home or self-care (01) ==
PROVIDERS: PCP Internal Medicine; Visit Provider Internal Medicine
DX: K21.9 Gastro-esophageal reflux disease without esophagitis (principal); G43.009 Migraine without aura, not intractable, without status migrainosus; E66.9 Obesity, unspecified; Z68.35 Body mass index [BMI] 35.0-35.9, adult; F41.1 Generalized anxiety disorder; J45.20 Mild intermittent asthma, uncomplicated; R73.01 Impaired fasting glucose; R07.9 Chest pain, unspecified
CPT/HCPCS: 99214

== ENCOUNTER → 2023-09-28 10:16 | Outpatient (REF) | payer OTHER, SELFPAY ==
--- NOTE | ~2023-09-28 | XR_ITS ---
EXAMINATION: XR chest 2V CLINICAL INFORMATION: Reason for Exam R07.9 - Chest pain, unspecified COMPARISON: Chest radiograph 03/03/2022 TECHNIQUE: 2 views of the chest XR/XR chest 2V FINDINGS/IMPRESSION: Clear lungs. No pneumothorax. No pleural effusion. Normal cardiomediastinal silhouette.
--- NOTE | 2023-09-28 10:21 | CA_ITS ---
Acquisition Time: 2023-09-28 10:31:12 Total Exercise Time: 00:05:01 Test Indications: chest pain Medications: Protocol: CATHLEEN Max HR: 148 BPM 92% of Pred: 160 BPM Max BP: 142/066 mmHG Max Work Load: 7.0 METS Exercise stress test exercise 5 min 1 sec of Cathleen protocol achieving 90% MPHR, with 4/10 chest tightness, with mild to moderate SOB, without arrhythmias, ,with normotensive response to exercise, without EKG changes. Chest pain resolved with rest. Test reviewed with Dr. Vazquez. Referred By: Sisi Rodrigez Overread By: Ashley Oh
[2023-09-28 11:30] LABS: MANUAL DIFF FLAG NO
[2023-09-28 11:42] LABS: Basophils Absolute Auto 0.1 X10*3/uL (0.0-0.2); Basophils Percent Auto 0.7 % (0-2); Eosinophils Absolute Auto 0.1 X10*3/uL (0.0-0.4); Eosinophils Percent Auto 1.8 % (0-4); Hematocrit 41.4 % (37.0-47.0); Imm Gran Abs Auto 0.02 X10*3/uL (0.00-0.03); Imm Gran Pct Auto 0.3 % (0.0-0.4); Lymphocytes Percent Auto 39.2 % (20-40); Mean Corpuscular HGB Conc 33.8 g/dl (31.0-35.0); Mean Corpuscular Hemoglobin 29.5 pg (27.0-33.0); Mean Corpuscular Volume 87.3 fL (80.0-98.0); Mean Platelet Volume 11.1 fL (9.4-12.3); Monocytes Absolute Auto 0.5 X10*3/uL (0.1-1.2); Monocytes Percent Auto 6.2 % (2-11); Neutrophils Percent Auto 51.8 % (45-73); Platelet Count 347 X10*3/uL (160-400); Red Blood Count 4.74 X10*6/uL (4.20-5.50); Red Cell Distribution Width 12.4 % (11.0-16.0); White Blood Count 7.6 X10*3/uL (4.8-10.8)
[2023-09-28 11:53] LABS: Estimated Average Glucose 123 mg/dL; Hemoglobin A1c % 5.9 % (<6.0)
[2023-09-28 12:19] LABS: Alanine Aminotransferase 6 U/L (0-31); Albumin Level 4.6 g/dL (3.5-5.0); Alkaline Phosphatase 133 U/L (39-117); Anion Gap 11 (12-20); Aspartate Amino Transferase 14 U/L (5-31); Bilirubin Total 0.5 mg/dL (0.0-1.0); Blood Urea Nitrogen 11 mg/dL (9-16); Calcium 10.2 mg/dL (8.4-10.2); Carbon Dioxide 26 mmol/L (22-29); Chloride 109 mmol/L (96-108); Cholesterol 210 mg/dL (<200); Estimated Glomerular Filt Rate > 60; Glucose Random 106 mg/dL (60-115); HDL Cholesterol 65 mg/dL (>40); LDL Cholesterol Calculated 119 mg/dL (<100); Potassium 3.7 mmol/L (3.3-5.1); Sodium 142 mmol/L (135-145); Total Protein 7.6 g/dL (6.5-8.0); Triglycerides 133 mg/dL (<150)
[2023-09-28 12:27] LABS: Free T4 (Free Thyroxine) 1.12 ng/dL (0.71-1.85); Thyroid Stimulating Hormone 1.74 uIU/mL (0.32-4.0)
[2023-09-28 12:35] LABS: Folate 13.9 ng/mL (> or = 4.0); Vitamin B12 318 pg/mL (200-900)
== END ==
LOC: HO.CARD 10:16
PROVIDERS: PCP Internal Medicine; Visit Provider Internal Medicine
DX: R07.9 Chest pain, unspecified (principal); R73.01 Impaired fasting glucose; E78.00 Pure hypercholesterolemia, unspecified
CPT/HCPCS: 36415; 71046; 80053; 80061; 82306; 82607; 82746; 83036; 84439; 84443; 85025; 93017

== ENCOUNTER → 2023-09-28 10:21 | Outpatient (BNV) | payer OTHER, SELFPAY | PROVIDERS: PCP Internal Medicine; Visit Provider Nurse Practitioner | DX: R07.89 Other chest pain (principal); R06.02 Shortness of breath | CPT/HCPCS: 93016; 93018 ==

== ENCOUNTER 2023-11-29 13:01 | Outpatient (AMB) | payer OTHER, SELFPAY ==
--- NOTE | 2023-11-29 14:05 | MHC.OFFWIV ---
Intake Vital Signs 11/29/23 14:06 Height 5 ft Weight 179 lb BMI 35.0 BP 126/74 Blood Pressure Location Rt brachial Position Sitting Pulse 79 Pulse Source Pulse Oximeter Temp 97.8 F Temp Source Oral Pulse Oximetry (%) 98 Intake Visit Reasons: EST/right side ear pain (lobby) Intake Note: pt is here for right side ear pain and left side of head pain since last wednesday Patient Tobacco Use Status: Never used Tobacco Allergies fluticasone [From Flonase] Allergy (Unknown, Verified 11/29/23 14:06) glaucoma suspect Penicillins [PENICILLINS] Allergy (Unknown, Verified 11/29/23 14:06) RASH Do you need a note to return to daycare/school/sports/work: No HPI HPI Comments History of Present Illness Details presents to walkin today for sick visit Complaining of right ear pain for last 1 week Denies hearing loss, drainage from ear, ringing in the ear, dizziness, syncope. Patient denies sore throat, cough, fever, vomiting, diarrhea, headache. PFS Medical History Glaucoma suspect History of right bundle branch block Asthma Vitamin D deficiency Obesity (BMI 30-39.9) Hypertension GERD (gastroesophageal reflux disease) Chronic radicular low back pain Migraine Anemia Surgical History History of esophagogastroduodenoscopy (EGD) Hx of colonoscopy History of lumpectomy of left breast History of cataract surgery History of section Family History Father Stroke Hypertension Mother Bladder cancer CVD (cardiovascular disease) Maternal Grandfather Heart attack Maternal Uncle Mouth cancer Paternal Aunt Brain cancer Maternal Aunt Heart attack Brother Heart attack Brother Heart attack Other Anxiety Social History Household Members: Spouse and Children Housing: House Alcohol intake: never Patient Tobacco Use Status: Never used Tobacco e-Cigarette/Vaping Use: Never Used Second Hand Smoke Exposure: No service: No Current occupational status: unemployed Current occupational exposures/hazards: No Sexual orientation: Straight/Heterosexual Gender identity: Female Cognitive needs: No Hearing needs: No Vision needs: Yes Female Reproductive History Menstrual Age of Menarche: 12 Review of Systems Const All systems reviewed & are unremarkable except as noted in HPI and below Physical Exam Vital Signs: Last Vital Signs Temp 97.8 F 11/29/23 14:06 Pulse 79 11/29/23 14:06 BP 126/74 11/29/23 14:06 Pulse Ox 98 11/29/23 14:06 BMI result Body Mass Index 35.0 General: awake, alert, oriented. Answers questions appropriately. Fully engaged in examination. Skin: warm, dry, intact HEENT: Normocephalic. Hearing intact. Right TM erythematous, cloudy. Left TM normal to visual inspection. Cardiac: External chest normal in appearance. Respiratory: No cough, audible wheezing or stridor. Abdomen: without gross distension. MS: No obvious swelling or deformities. Neurological: Oriented to person, place, time and situation. Thought process intact. Psychiatric: Appropriate mood and affect. Good judgment and insight. Assessment & Plan Assessment & Plan (1) Otitis media, right: Code(s): H66.91 - Otitis media, unspecified, right ear Plan Z-Pierre as directed. Ibuprofen 600 mg p.o. q.8 hours as needed. Patient advised on cautions for use. Take with food. Do not take with any other nonsteroidal anti-inflammatory medications Follow up PCP or return here for any new or worsening symptoms Medications: New azithromycin For 250 mg dose pack: take 500 mg today (day 1), then 250 mg for 4 days (days 2-5) PO 6 tabs 0RF ibuprofen 600 mg PO Q8H PRN 30 tabs 0RF pain Coding Level of Care Code Est Pt Level 3 (31387) Diagnoses Otitis media, right H66.91
[2023-11-29 14:06] VITALS: BP 126/74; PULSE 79; TEMP 36.6; O2SAT 98; BMI 35.0
== END 2023-11-29 14:53 | disposition home or self-care (01) ==
PROVIDERS: PCP Internal Medicine; Visit Provider Registered Nurse Emergency
DX: H66.91 Otitis media, unspecified, right ear (principal)
CPT/HCPCS: 99213

== ENCOUNTER 2023-12-04 16:11 | Emergency (ER) | payer OTHER, SELFPAY ==
--- NOTE | ~2023-12-04 | CT_ITS ---
EXAMINATION: CT HEAD WITHOUT CONTRAST CLINICAL INFORMATION: Headache times weeks COMPARISON: None available. TECHNIQUE: Contiguous axial imaging was performed from the skull base to vertex without intravenous administration of contrast. This CT examination was performed using dose optimization techniques as appropriate, variously including the following: *Automated exposure control *Adjustment of mA and/or kV according to patient size (this includes techniques or standardized protocols for targeted exams where dose is matched to indication/reason for exam; i.e. extremities or head) *Use of iterative reconstruction technique DLP: 625 mGy-cm FINDINGS: There is no evidence of acute intracranial hemorrhage or territorial infarction. No abnormal mass effect or midline shift is seen. [place] to white matter differentiation is well preserved. No extra-axial fluid collections are identified. The ventricles are normal in size. There is no abnormal attenuation within the brain parenchyma. The osseous structures and soft tissues are normal. The mastoid air cells and visualized portions of the paranasal sinuses are well aerated. CT/CT head/brain wo IV con IMPRESSION: No acute intracranial pathology.
[2023-12-04 16:20] VITALS: BP 184/68; PULSE 80; RESP 20; TEMP 37.2; O2SAT 99; BMI 30.2
--- NOTE | 2023-12-04 16:20 | ED_ITS ---
HPI - Headache General Chief Complaint: Headache Stated Complaint: Headache X 2 weeks Time Seen by Provider: 12/04/23 19:10 Source: patient and medical service technician Mode of arrival: ambulatory Limitations: language barrier History of Present Illness HPI Narrative: 62yo female with history of migraines, arthritis, anxiety, asthma, high blood pressure, GERD, chronic neck pain and knee pain here with complaints of right sided intermittent headache x 2 weeks. Of note was diagnosed with OM at walk in on 11/28 and given azithromycin x 5 days. She completed the course yesterday. No fevers, chills, neck pain or neck stiffness, vision changes, nausea/vomiting. Does have some photophobia/phonophobia but feels this is different from her typical migraine. She takes topamax daily for migraines and has a triptan prn. She has tried this several times in the last 2 weeks but it has not helped. Headache not changed with positions. Worsened if she touches her head, chews and or opens her mouth. Related Data Home Medications ?Medication ?Instructions ?Recorded ?Confirmed brimonidine 0.2 % eye drops 1 drp ophthalmic (eye) Q12H 04/01/21 09/23/23 rizatriptan 5 mg tablet mg PO 07/01/22 09/23/23 cyclobenzaprine 10 mg tablet 10 mg PO DAILY 09/07/23 09/23/23 Previous Rx's ?Medication ?Instructions ?Recorded albuterol sulfate 2.5 mg/3 mL 2.5 mg (3 mL) inhalation QID PRN 02/26/22 (0.083 %) solution for nebulization shortness of breath or wheezing #180 mL polyethylene glycol 3350 17 17 g PO DAILY PRN constipation 02/01/23 gram/dose oral powder (Gavilax) #510 grams montelukast 10 mg tablet 10 mg PO BEDTIME 90 days #90 tabs 02/16/23 albuterol sulfate 90 mcg/actuation 2 inh PO Q4H PRN bronchospasm #8.5 03/16/23 aerosol inhaler (ProAir HFA) grams cholecalciferol (vitamin D3) 50 50 mcg PO DAILY #90 caps 03/16/23 mcg (2,000 unit) capsule topiramate 100 mg tablet 100 mg PO BID 90 days #180 tabs 06/18/23 bisacodyl 5 mg tablet,delayed 10 mg (2 x 5 mg) PO BEDTIME #180 09/07/23 release (Dulcolax (bisacodyl)) tabs famotidine 20 mg tablet (Pepcid) 20 mg PO BEDTIME #90 tabs 09/07/23 pantoprazole 40 mg tablet,delayed 40 mg PO DAILY #90 tabs 09/07/23 release fluticasone 250 mcg-salmeterol 50 1 inh inhalation BID #60 ea 09/23/23 mcg/dose blistr powdr for inhalation (Wixela Inhub) azithromycin 250 mg tablet See Rx Instructions PO .COMPLEX #6 11/29/23 tabs ibuprofen 600 mg tablet 600 mg PO Q8H PRN pain #30 tabs 11/29/23 Allergies Allergy/AdvReac Type Severity Reaction Status Date / Time fluticasone [From Flonase] Allergy Unknown glaucoma Verified 12/04/23 16:22 suspect Penicillins [PENICILLINS] Allergy Unknown RASH Verified 12/04/23 16:22 Review of Systems Review of Systems: Yes all other systems are reviewed and are negative Constitutional: Constitutional: Reports no additional constitutional complaints, Denies body ache(s), Denies chills, Denies fever(s), Reports headache(s) and Denies weakness Eyes: Eyes: Reports no additional eye complaints and Denies change in vision ENT: Reports system reviewed and no additional complaints, except as documented, Denies dizziness, Reports headache(s), Denies nasal congestion, Denies nasal discharge and Denies neck pain Cardiovascular: Cardiovascular: Reports no additional cardiovascular complaints, Denies chest pain, Denies leg edema and Denies dyspnea Respiratory: Respiratory: Reports no additional respiratory complaints, Denies cough and Denies dyspnea Gastrointestinal: Gastrointestinal: Reports no additional gastrointestinal complaints, Denies abdominal pain, Denies diarrhea, Denies nausea and Denies vomiting Genitourinary: Genitourinary: Reports no additional female genitourinary complaints and Denies urinary incontinence Musculoskeletal: Musculoskeletal: Reports no additional musculoskeletal complaints, Denies back pain, Denies arthralgias, Denies joint swelling, Denies neck pain, Denies numbness and Denies tingling Integumentary/Breasts: Skin/Breast: Reports system reviewed and no additional complaints, except as docu and Denies rash Neurologic: Reports system reviewed and no additional complaints, except as documented, Denies Abnormal speech present, Denies dizziness, Reports headache(s), Denies numbness, Denies tingling and Denies weakness PMFSH Past Medical History Attestation statement: The following information was validated with the patient. Source: old records reviewed and nursing notes reviewed Medical History Glaucoma suspect History of right bundle branch block Asthma Vitamin D deficiency Obesity (BMI 30-39.9) Hypertension GERD (gastroesophageal reflux disease) Chronic radicular low back pain Migraine Anemia Surgical History History of esophagogastroduodenoscopy (EGD) Hx of colonoscopy History of lumpectomy of left breast History of cataract surgery History of section Family History Family History Father Stroke Hypertension Mother Bladder cancer CVD (cardiovascular disease) Maternal Grandfather Heart attack Maternal Uncle Mouth cancer Paternal Aunt Brain cancer Maternal Aunt Heart attack Brother Heart attack Brother Heart attack Other Anxiety Social History Social History Household Members: Spouse and Children Housing: House Alcohol intake: never Patient Tobacco Use Status: Never used Tobacco e-Cigarette/Vaping Use: Never Used Second Hand Smoke Exposure: No Advance Directives: No Advance Directives Information Provided: No Do you have a plan to hurt others: No Plan service: No Current occupational status: unemployed Current occupational exposures/hazards: No Sexual orientation: Straight/Heterosexual Gender identity: Female Cognitive needs: No Hearing needs: No Vision needs: Yes Physical Exam Vital Signs: Vital Signs: Last Vital Signs Temp 97.9 F 12/04/23 20:30 Pulse 75 12/04/23 20:30 Resp 16 12/04/23 20:30 BP 135/61 12/04/23 20:30 Pulse Ox 99 12/04/23 20:30 O2 Del Method Room Air 12/04/23 20:30 BMI result Body Mass Index 30.2 Const: General: cooperative, healthy appearing, comfortable and no acute distress Orientation/consciousness: patient oriented x3 Limitations: no limitations HEENT: Head: Yes normal to inspection, Yes scalp tenderness (right side) and No Temporal artery tenderness present Ears: hearing grossly normal bilaterally and TM's normal bilaterally General nose exam: Normal external nose present Face and sinus: Yes normal facial exam Mouth: Normal oral and palatal mucosa present Throat: Yes posterior oropharynx normal Eyes: General: appearance normal, both eyes and all related structures Pupils: Equal, round and reactive pupils present Neck: Neck: Yes normal visual inspection, Yes full ROM, Yes no lymphadenopathy and Yes no meningeal signs Chest: Chest palpation & inspection: normal inspection of the chest Resp: Effort & Inspection: normal respiratory effort Auscultation: clear to auscultation bilaterally Cardio: Rate: regular rate Rhythm: regular rhythm Peripheral pulses: Peripheral pulses 2+ throughout GI: Inspection: Yes normal to inspection Palpation (GI): Soft to palpation and nontender Auscultation: normal bowel sounds Back/Spine/Pelvis: Thoracic/Lumbar Spine: thoracic and lumbar spine normal to inspection Skin: General skin exam: no rashes or lesions noted Neuro: General: patient oriented x3, moves all extremities, no meningeal signs, no focal motor deficits and normal sensation to monofilament Cranial nerves: Yes CN's II-XII intact bilaterally, Yes Equal, round and reactive pupils present, Yes Bilaterally intact EOM present, Yes Nystagmus not present, Yes Normal facial strength present and Yes Midline tongue present Cognition (Neuro): normal cognition Speech: No Abnormal speech present Gait exam (Neuro): Normal gait present Motor exam (neuro): 5/5 motor strength present throughout Sensory Exam: Normal double simultaneous stimulation for sensation Extrem: General: Yes normal to inspection Course Course Course Narrative: This is a rapid medical exam. Deferred additional HPI, ROS, PE to primary provider. 62yo female with history of migraines, arthritis, anxiety, asthma, high blood pressure, GERD, chronic neck pain and knee pain here with complaints of headache x 2 weeks. Normal neuro Will obtain CT head as patient feels is not typical for her usual migraines and has been persistent VSS -A. Aiyana STARKS Reevaluation(s) Reevaluation #1: 2030-Ct negative MORGAN resolved after IVF, decadron, reglan, benadryl and toradol IV. Plan for discharge home. reviewed worrisome signs and symptoms of when to return to the emergency room. Comfortable plan for discharge home. Medications Administered Discontinued Medications Generic Name Dose Route Start Last Admin Trade Name Freq PRN Reason Stop Dose Admin Dexamethasone Sodium Phosphate 10 mg 12/04/23 19:19 12/04/23 19:59 Dexamethasone Sod Phosphate 10 Mg/Ml Vial IVPUSH 12/04/23 19:20 10 mg ONCE ONE Administration Diphenhydramine HCl 25 mg 12/04/23 19:19 12/04/23 19:59 Diphenhydramine Hcl 50 Mg/Ml Vial IVPUSH 12/04/23 19:20 25 mg ONCE ONE Administration Sodium Chloride 1,000 mls @ 999 mls/hr 12/04/23 19:19 12/04/23 20:00 Ns IV 12/04/23 20:19 999 mls/hr .Q1H1M STA Administration Ketorolac Tromethamine 15 mg 12/04/23 19:19 12/04/23 19:59 Ketorolac Tromethamine 15 Mg/Ml Vial IVPUSH 12/04/23 19:20 15 mg ONCE ONE Administration Metoclopramide HCl 10 mg 12/04/23 19:19 12/04/23 19:59 Metoclopramide Hcl 10 Mg/2 Ml Vial IVPUSH 12/04/23 19:20 10 mg ONCE ONE Administration Medical Decision Making Medical Decision Making MDM Narrative: 62yo female with history of migraines, arthritis, anxiety, asthma, high blood pressure, GERD, chronic neck pain and knee pain here with complaints of right sided intermittent headache x 2 weeks. Of note was diagnosed with OM at walk in on 11/28 and given azithromycin x 5 days. She completed the course yesterday. No fevers, chills, neck pain or neck stiffness, vision changes, nausea/vomiting. Does have some photophobia/phonophobia but feels this is different from her ty pical migraine. She takes topamax daily for migraines and has a triptan prn. She has tried this several times in the last 2 weeks but it has not helped. Headache not changed with positions. Worsened if she touches her head, chews and or opens her mouth. Normal neuro exam. No temporal artery tenderness. +scalp tenderness right side. R TM normal. No meningeal signs or lymphadenpathy. Will obtain CT head, place PIV and give analgesia Differential Diagnosis Differential Diagnoses: The differential diagnosis associated with the pr esentation includes low suspicion for mastoiditis, yousif turner syndrome, malignant otitis externa, AOM, menigits, pseudotumouor cerebri, temporal arteritis, ICH vs CVA vs space occupying lesion migraine, neuralgia Admission/Observation Consideration of admission/observation: Escalation of care including admission/observation considered see discussion in course Independent Interpretation I performed an independent interpretation of an: CT Scan Interpretation: I independetely reviewed the CT scan of the head and agree with the rad report Radiology Impression Discussion of test interpretation with radiology: I have reviewed the radiologist's reading. Radiologist Impression: [address] [address] [address] Scan Report Signed Patient: Camilla Golden MR#: [id number] : 1960 Acct:[id number] Age/Sex: 62 / F ADM Date: 12/04/23 Loc: HO.ED Attending Dr: Ordering Physician: Yissel Carrillo NP Date of Service: 12/04/23 Procedure(s): CT head/brain wo IV con Accession Number(s): [id number] cc: Sisi Rodrigez MD; Yissel Carrillo NP~ EXAMINATION: CT HEAD WITHOUT CONTRAST CLINICAL INFORMATION: Headache times weeks COMPARISON: None available. TECHNIQUE: Contiguous axial imaging was performed from the skull base to vertex without intravenous administration of contrast. This CT examination was performed using dose optimization techniques as appropriate, variously including the following: *Automated exposure control *Adjustment of mA and/or kV according to patient size (this includes techniques or standardized protocols for targeted exams where dose is matched to indication/reason for exam; i.e. extremities or head) *Use of iterative reconstruction technique DLP: 625 mGy-cm FINDINGS: There is no evidence of acute intracranial hemorrhage or territorial infarction. No abnormal mass effect or midline shift is seen. [place] to white matter differentiation is well preserved. No extra-axial fluid collections are identified. The ventricles are normal in size. There is no abnormal attenuation within the brain parenchyma. The osseous structures and soft tissues are normal. The mastoid air cells and visualized portions of the paranasal sinuses are well aerated. CT/CT head/brain wo IV con IMPRESSION: No acute intracranial pathology. Independent Historian Clinical information obtained from an independent historian. History obtained from or confirmed by: Friend Discharge Plan Discharge Clinical Impression: Neuralgia Patient Disposition: Home, Self-Care Instructions: Acute Headache (DC) Additional Instructions: Your CT scan was normal Follow-up with your PCP as needed Continue your home medications Return for worsening symptoms Prescriptions: No Action montelukast 10 mg tablet 10 mg PO BEDTIME 90 Days Qty: 90 3RF albuterol sulfate 2.5 mg /3 mL (0.083 %) solution for nebulization 2.5 mg inhalation QID PRN (Reason: shortness of breath or wheezing) Qty: 180 0RF albuterol sulfate [ProAir HFA] 90 mcg/actuation HFA aerosol inhaler 2 inh PO Q4H PRN (Reason: bronchospasm) Qty: 8.5 0RF cholecalciferol (vitamin D3) 50 mcg (2,000 unit) capsule 50 mcg PO DAILY Qty: 90 3RF fluticasone propion-salmeterol [Wixela Inhub] 250-50 mcg/dose blister with device 1 inh inhalation BID Qty: 60 9RF topiramate 100 mg tablet 100 mg PO BID 90 Days Qty: 180 2RF azithromycin 250 mg tablet See Rx Instructions PO .COMPLEX Qty: 6 0RF Rx Instructions: For 250 mg dose pack: take 500 mg today (day 1), then 250 mg for 4 days (days 2-5) PO ibuprofen 600 mg tablet 600 mg PO Q8H PRN (Reason: pain) Qty: 30 0RF brimonidine 0.2 % drops 1 drp ophthalmic (eye) Q12H rizatriptan 5 mg tablet PO polyethylene glycol 3350 [Gavilax] 17 gram/dose powder 17 g PO DAILY PRN (Reason: constipation) Qty: 510 6RF cyclobenzaprine 10 mg tablet 10 mg PO DAILY bisacodyl [Dulcolax (bisacodyl)] 5 mg tablet,delayed release (DR/EC) 10 mg PO BEDTIME Qty: 180 4RF pantoprazole 40 mg tablet,delayed release (DR/EC) 40 mg PO DAILY Qty: 90 2RF Rx Instructions: take one tablet half an hour before breakfast famotidine [Pepcid] 20 mg tablet 20 mg PO BEDTIME Qty: 90 2RF Referrals: Po,Sisi Ordonez MD [Primary Care Provider] - 5 days Print Language: Malaysian
[2023-12-04] MEDS: Metoclopramide HCl 10 MG/2 ML VIAL IVPUSH (19:59)
[2023-12-04] MEDS: diphenhydrAMINE HCL 50 MG/ML VIAL 25 MG IVPUSH (19:59)
[2023-12-04] MEDS: Ketorolac Tromethamine 15 MG/ML VIAL IVPUSH (19:59)
[2023-12-04] MEDS: dexAMETHasone sod phosphate 10 MG/ML VIAL IVPUSH (19:59)
[2023-12-04] MEDS: 0.9 % Sodium Chloride 1,000 ML 999 ML IV (20:00)
[2023-12-04 20:30] VITALS: BP 135/61; PULSE 75; RESP 16; TEMP 36.6; O2SAT 99
[2023-12-04 20:45] VITALS: BP 135/61; PULSE 75; RESP 16; TEMP 36.6; O2SAT 99
== END 2023-12-04 20:45 | disposition home or self-care (01) ==
PROVIDERS: Emergency Provider Internal Medicine; PCP Internal Medicine
DX: M79.2 Neuralgia and neuritis, unspecified (principal); R51.9 Headache, unspecified; M54.2 Cervicalgia; I10 Essential (primary) hypertension; Z79.899 Other long term (current) drug therapy
CPT/HCPCS: 70450; 96361; 96374; 96375; 99284; J1100; J1200; J1885; J2765

== ENCOUNTER → 2023-12-09 08:06 | Outpatient (REF) | payer OTHER, SELFPAY ==
--- NOTE | 2023-12-09 08:13 | ECG_ITS ---
Test Reason : CP Blood Pressure : / mmHG Vent. Rate : 071 BPM Atrial Rate : 071 BPM P-R Int : 138 ms QRS Dur : 116 ms QT Int : 416 ms P-R-T Axes : 007 051 032 degrees QTc Int : 452 ms Normal sinus rhythm Right bundle branch block Borderline ECG When compared with ECG of 03-MAR-2022 14:08, No significant change was found Referred By: Sisi Rodrigez Electronically Signed By:JEEVAN RODRIGUEZ MD
== END ==
LOC: HO.CARD 08:06
PROVIDERS: PCP Internal Medicine; Visit Provider Internal Medicine
DX: R07.9 Chest pain, unspecified (principal)
CPT/HCPCS: 93005

== ENCOUNTER → 2023-12-09 08:13 | Outpatient (BNV) | payer OTHER, SELFPAY | PROVIDERS: PCP Internal Medicine; Visit Provider Internal Medicine Cardiovascular Disease | DX: R07.9 Chest pain, unspecified (principal) | CPT/HCPCS: 93010 ==

== ENCOUNTER 2024-03-07 12:49 | Outpatient (AMB) | payer OTHER, SELFPAY ==
--- NOTE | 2024-03-07 12:55 | A.OFFVIS_ITS ---
Vital Signs 03/07/24 12:56 Height 5 ft Weight 176 lb 12.972 oz BMI 34.5 BP 124/64 Blood Pressure Location Rt brachial Position Sitting Pulse 78 Pulse Source Pulse Oximeter Pulse Oximetry (%) 98 Oxygen Delivery Method Room Air Intake Visit Reasons: 6 month follow up IBS, Gerd Intake Note: Camilla presents in office today for a scheduled 6 mos FUV. CC; Pt reports that they have remained stable since their last visit. Pt denies any new concerns or sx at this time. Pt reports that they need a refill of their dulcolax. Supervisor Quilting Required: Yes Supervisor Quilting Name: [id number] [place] Information Interpreted: non-clinical & clinical Accompanied by: Self / Same As Patient Allergies fluticasone [From Flonase] Allergy (Unknown, Verified 03/07/24 12:55) glaucoma suspect Penicillins [PENICILLINS] Allergy (Unknown, Verified 03/07/24 12:55) RASH HPI HPI 6 month follow up IBS, Gerd: Details: LAST VISIT Constipation GERD (gastroesophageal reflux disease) IBS (irritable bowel syndrome) Postprandial epigastric pain Dysphagia Plan Patient reports symptoms of dysphagia improved. Patient is taking pantoprazole in the morning and famotidine at bedtime. Continue current treatment. Discussed with patient avoiding dietary triggers late night snacking. Staying upright for minimum 3 hours after meals discussed with patient. Continue taking Dulcolax daily. Patient was encouraged to increase fluid intake and activity to promote better bowel motility. Patient will follow-up in the office in 6 months, sooner on as needed basis. Patient is agreeable to this plan and verbalizes understanding of instructions. She was given the opportunity to ask questions and all questions answered. ? Thank you for allowing me to participate in her care Medications Refilled bisacodyl (Dulcolax (bisacodyl)) 10 mg (2 x 5 mg) PO BEDTIME 180 tabs 4RF pantoprazole take one tablet half an hour before breakfast 40 mg PO DAILY 90 tabs 2RF K21.9 famotidine (Pepcid) 20 mg PO BEDTIME 90 tabs 2RF K21.9 TODAY'S VISIT: Patient is here today for follow-up. Patient reports that she has been feeling well with taking the pantoprazole in the morning and famotidine at bedtime. Patient denies any dyspepsia, dysphagia or odynophagia. Denies any acid reflux. Patient reports that she is taking Dulcolax daily and is moving her bowels daily. Patient denies melena, hematochezia, unintentional weight loss or ribbon like stools. Colonoscopy is due in May of 2025. FOR[facility]LY [facility] Medical History Glaucoma suspect History of right bundle branch block Asthma Vitamin D deficiency Obesity (BMI 30-39.9) Hypertension GERD (gastroesophageal reflux disease) Chronic radicular low back pain Migraine Anemia Surgical History History of esophagogastroduodenoscopy (EGD) Hx of colonoscopy History of lumpectomy of left breast History of cataract surgery History of section Family History Father Stroke Hypertension Mother Bladder cancer CVD (cardiovascular disease) Maternal Grandfather Heart attack Maternal Uncle Mouth cancer Paternal Aunt Brain cancer Maternal Aunt Heart attack Brother Heart attack Brother Heart attack Other Anxiety Social History Household Members: Spouse and Children Housing: House Alcohol intake: never Patient Tobacco Use Status: Never used Tobacco e-Cigarette/Vaping Use: Never Used Second Hand Smoke Exposure: No service: No Current occupational status: unemployed Current occupational exposures/hazards: No Sexual orientation: Straight/Heterosexual Gender identity: Female Cognitive needs: No Hearing needs: No Vision needs: Yes Female Reproductive History Menstrual Age of Menarche: 12 Review of Systems Const Denies weight gain and Denies weight loss ENT Reports no additional complaints, Denies dysphagia and Denies odynophagia Card Reports no additional complaints Resp Reports no additional complaints GI Denies abdominal pain, Denies belching, Denies melena, Denies bloating, Denies change in bowel habits, Denies dysphagia, Denies excessive flatus, Denies dyspepsia, Denies heartburn, Denies diarrhea, Denies loose stools, Denies nausea, Denies odynophagia and Denies vomiting Reports no additional complaints Musc Reports no additional complaints Neuro Reports no additional complaints Psych Reports no additional complaints Endo Reports no additional complaints Physical Exam Vital Signs: BMI result Body Mass Index 34.5 Const General: healthy appearing and no acute distress Nutritional Appearance: obese Orientation/consciousness: patient oriented x3 Resp Effort & Inspection: normal respiratory effort, able to speak in complete sentences, no tracheal deviation and symmetric chest movement Auscultation: clear to auscultation bilaterally Cardio Rate: regular rate GI Inspection: Yes normal to inspection, No distended and Yes obesity Palpation (GI): Soft to palpation, not firm, nontender and No hepatosplenomegaly present Auscultation: normal bowel sounds General: Yes no CVA tenderness Back/Spine/Pelvis Back: no CVA tenderness Skin General skin exam: elasticity normal, turgor normal and dry skin Neuro General: patient oriented x3 Psych Appearance: grossly normal Mental Status: mental status grossly normal Assessment & Plan Assessment & Plan (1) Constipation: Code(s): K59.00 - Constipation, unspecified Category: Medical Qualifiers: Constipation type: chronic idiopathic constipation Qualified Code(s): K59.04 - Chronic idiopathic constipation (2) GERD (gastroesophageal reflux disease): Code(s): K21.9 - Gastro-esophageal reflux disease without esophagitis Category: Medical Qualifiers: Esophagitis presence: without esophagitis Qualified Code(s): K21.9 - Gastro-esophageal reflux disease without esophagitis (3) IBS (irritable bowel syndrome): Code(s): K58.9 - Irritable bowel syndrome without diarrhea Qualifiers: Irritable bowel syndrome type: with constipation Qualified Code(s): K58.1 - Irritable bowel syndrome with constipation (4) Postprandial epigastric pain: Code(s): R10.13 - Epigastric pain Plan Continue PPI and H2 hugo. Avoid dietary triggers and late night snacking. Staying upright for minimal 3 hours discussed with patient. Continue Dulcolax daily. Increase fluid intake and activity to promote better bowel motility. Patient will return in 6 months, sooner on as needed basis. Agreeable to plan of care and verbalizes understanding of instructions. She was given the opportunity to ask questions and all questions answered. Thank you for allowing me to participate in her care Medications: Refilled pantoprazole take one tablet half an hour before breakfast 40 mg PO DAILY 90 tabs 2RF K21.9 - Gastro-esophageal reflux disease without esophagitis bisacodyl (Dulcolax (bisacodyl)) 10 mg (2 x 5 mg) PO BEDTIME 180 tabs 4RF famotidine (Pepcid) 20 mg PO BEDTIME 90 tabs 2RF K21.9 - Gastro-esophageal reflux disease without esophagitis Coding Level of Care Code Est Pt Level 3 (43520) Diagnoses Chronic idiopathic constipation K59.04 Constipation type: chronic idiopathic constipation Gastroesophageal reflux disease without esophagitis K21.9 Esophagitis presence: without esophagitis Irritable bowel syndrome with constipation K58.1 Irritable bowel syndrome type: with constipation Postprandial epigastric pain R10.13 Time Spent (min) 25 Comment 15 minutes spent with patient and additional 10 minutes spent reviewing her records
[2024-03-07 12:56] VITALS: BP 124/64; PULSE 78; O2SAT 98; BMI 34.5
== END 2024-03-07 13:17 | disposition home or self-care (01) ==
PROVIDERS: PCP Internal Medicine; Visit Provider Nurse Practitioner Family
DX: K59.04 Chronic idiopathic constipation (principal); K21.9 Gastro-esophageal reflux disease without esophagitis; K58.1 Irritable bowel syndrome with constipation; R10.13 Epigastric pain
CPT/HCPCS: 99213

== ENCOUNTER → 2024-03-07 12:49 | Outpatient (BNVA) | payer OTHER, SELFPAY | PROVIDERS: PCP Internal Medicine; Visit Provider Nurse Practitioner Family | DX: K59.04 Chronic idiopathic constipation (principal); K21.9 Gastro-esophageal reflux disease without esophagitis; K58.1 Irritable bowel syndrome with constipation; R10.13 Epigastric pain | CPT/HCPCS: 99212 ==

== ENCOUNTER 2024-03-17 13:04 | Outpatient (AMB) | payer OTHER, SELFPAY ==
--- NOTE | 2024-03-17 13:11 | A.OFFPC_ITS ---
Vital Signs 03/17/24 13:13 Height 5 ft Weight 177 lb 2 oz BMI 34.6 BP 106/62 Blood Pressure Location Lt brachial Position Sitting Pulse 77 Pulse Source Pulse Oximeter Pulse Oximetry (%) 96 Oxygen Delivery Method Room Air Intake Visit Reasons: ANNUAL EXAM Intake Note: Patient is here today for a physical. Equipment Operator Wage Hand Required: Yes Equipment Operator Wage Hand Language: [employer] Professor Name: Jose Antonio (Spouse) Information Interpreted: non-clinical & clinical Patient Care Technician: Present Accompanied by: Spouse Allergies fluticasone [From Flonase] Allergy (Unknown, Verified 03/17/24 13:13) glaucoma suspect Penicillins [PENICILLINS] Allergy (Unknown, Verified 03/17/24 13:13) RASH Medication List - Last Reconciled 03/17/24 by Sisi Rodrigez MD albuterol sulfate 2.5 mg (3 mL) inhalation QID PRN albuterol sulfate 90 mcg/actuation (ProAir HFA) 2 inhalations PO Q4H PRN bisacodyl (Dulcolax (bisacodyl)) 10 mg (2 x 5 mg) PO BEDTIME brimonidine 0.2% 1 drp ophthalmic (eye) Q12H cholecalciferol (vitamin D3) 50 mcg PO DAILY famotidine (Pepcid) 20 mg PO BEDTIME fluticasone propion-salmeterol 250-50 mcg/dose (Wixela Inhub) 1 inh inhalation BID ibuprofen 600 mg PO Q8H PRN montelukast 10 mg PO BEDTIME 90 days pantoprazole 40 mg PO DAILY polyethylene glycol 3350 (Gavilax) 17 grams PO DAILY PRN rizatriptan mg PO topiramate 100 mg PO BID 90 days Tobacco use date assessed: 03/17/24 Dental Screening Dental Screen Date: 09/23/23 HPI ANNUAL EXAM HPI Details 63-year-old obese female with a history of migraine GERD asthma impaired glucose tolerance and generalized anxiety disorder last seen in September 2023. Patient is here for physical exam. Patient's colonoscopy last done in May 29/2022 3 years, mammogram is due. Review of the notes gastroenterology seen in March 07 GERD and IBS on pantoprazole and famotidine has constipation prescribed Dulcolax. ER visit in November complain of right side intermittent headache. Recently diagnosed with otitis media and was given Zithromax. Diagnosis of neuralgia. Stress test done in September negative. [facility]LY [facility] Medical History Glaucoma suspect History of right bundle branch block Asthma Vitamin D deficiency Obesity (BMI 30-39.9) Hypertension GERD (gastroesophageal reflux disease) Chronic radicular low back pain Migraine Anemia Surgical History History of esophagogastroduodenoscopy (EGD) Hx of colonoscopy History of lumpectomy of left breast History of cataract surgery History of section Family History (Updated 03/17/24 @ 13:46 by Sisi Rodrigez MD) Father Stroke Hypertension Mother Bladder cancer CVD (cardiovascular disease) Maternal Grandfather Heart attack Maternal Uncle Mouth cancer Paternal Aunt Brain cancer Maternal Aunt Heart attack Brother Heart attack Brother Heart attack Other Anxiety Mental health disorder Social History Household Members: Spouse and Children Housing: House Alcohol intake: never Patient Tobacco Use Status: Never used Tobacco e-Cigarette/Vaping Use: Never Used Second Hand Smoke Exposure: No service: No Current occupational status: unemployed Current occupational exposures/hazards: No Sexual orientation: Straight/Heterosexual Gender identity: Female Cognitive needs: No Hearing needs: No Vision needs: Yes Female Reproductive History Menstrual Age of Menarche: 12 Questionnaire PHQ-9 Over the last 2 weeks, how often have you been bothered by any of the following problems? 1. Little interest or pleasure in doing things: not at all 2. Feeling down, depressed, or hopeless: several days 3. Trouble falling or staying asleep, or sleeping too much: several days 4. Feeling tired or having little energy: several days 5. Poor appetite or overeating: not at all 6. Feeling bad about yourself - or that you are a failure or have let yourself or your family down: not at all 7. Trouble concentrating on things, such as reading the newspaper or watching television: not at all 8. Moving or speaking so slowly that other people could have noticed. Or the opposite - being so fidgety or restless that you have been moving around a lot more than usual: not at all 9. Thoughts that you would be better off or of hurting yourself in some way: not at all Total score: 3 Depression Screening Interpretation: Positive Depression Screening Done: Yes Source: Developed by Drs. Stevenson Collins, Gaviota Abrams, Vincent Busby and colleagues, with an educational luis antonio from [employer]. Thrive Questionnaire Date Thrive assessed: 03/17/24 I am a: Patient What is your living situation today?: I have a steady place to live Within the past 12 months, did the food you bought not last and you didn't have the money to get more?: Never true Within the past 12 months, did you worry whether your food would run out before you got money to buy more?: Never true Do you have trouble paying for medicines?: No Do you have trouble getting transportation to medical appointments?: No Do you have trouble paying your heating and electricity bill?: No Do you have trouble taking care of your child, family member or friend?: I choose not to answer this question Do you have trouble with day-to-day activities such as bathing, preparing meals, shopping, managing finances, etc.?: No Are you currently unemployed and looking for a job?: I choose not to answer this question Are you interested in more education?: I choose not to answer this question Please select the resources that you would like help with: None Currently or been in a relationship where the following occur: I choose not to answer THRIVE Score: 0 AUDIT C Alcohol Use Questionnaire (AUDIT-C) 1. How often do you have a drink containing alcohol?: Never Total Score: 0 RIOS-7 AMB Questionnaire RIOS-7 Date RIOS - 7 assessed: 03/17/24 Feeling nervous, anxious, or on edge: 0 = Not at all Not being able to stop or control worryin = Not at all Worrying too much about different things: 0 = Not at all Trouble relaxin = Not at all Being so restless that it is hard to sit still: 0 = Not at all Becoming easily annoyed or irritable: 0 = Not at all Feeling afraid as if something awful might happen: 0 = Not at all Total RIOS-7 score (0-4 normal; 5-9 mild; 10-14 moderate; 15-21 severe): 0 Source: Developed by Drs. Stevenson Collins, Gaviota Abrams, Vincent Busby and colleagues, with an educational luis antonio from [employer]. Review of Systems Const Denies poor appetite and Denies weakness Eyes Denies no additional complaints ENT Reports Normal hearing present, Denies dizziness, Denies nasal congestion, Denies tinnitus and Denies sore throat Card Denies chest pain, Denies syncope, Denies rapid heart rate and Denies dyspnea Resp Denies cough and Denies dyspnea GI Denies change in stool character, Reports constipation, Denies diarrhea, Denies nausea and Denies vomiting Denies urinary frequency, Denies difficulty voiding and Denies dysuria Neuro Reports Normal hearing present, Denies confusion, Denies dizziness, Denies syncope and Denies weakness Psych Denies confusion Physical exam (Primary Care) Vital Signs: Last Vital Signs Pulse 77 03/17/24 13:13 BP 106/62 03/17/24 13:13 Pulse Ox 96 03/17/24 13:13 Oxygen Delivery Method Room Air 03/17/24 13:13 BMI result Body Mass Index 34.6 Tobacco/Smoking Status: Tobacco use Status Tobacco use date assessed 03/17/24 03/17/24 13:26 Patient Tobacco Use Status Never used Tobacco 03/17/24 13:26 e-Cigarette/Vaping Use Never Used 03/17/24 13:26 PHQ-9: PHQ-9 Score PHQ-9: Total score 3 03/17/24 13:42 Depression Screening Interpretation: Positive Thrive Assessment: Date of Thrive Assessment Date Thrive assessed 03/17/24 03/17/24 13:26 Currently or been in a relationship where the following occur: I choose not to answer Const General: No confusion Orientation/consciousness: No confusion HENMT Head: Yes normocephalic Ears: external ears normal and TM's normal bilaterally Face and sinus: Yes normal facial exam Mouth: moist mucous membranes Throat: Yes tonsils normal Eyes Conjunctivae: conjunctivae normal Pupils: Equal, round and reactive pupils present and Pupil accommodation reflex normal Direct Ophthalmoscopy: normal light reflex Neck Neck: No lymphadenopathy Thyroid: Thyroid normal Chest Chest palpation & inspection: normal inspection of the chest Resp Effort & Inspection: normal respiratory effort and no audible wheezes Auscultation: clear to auscultation bilaterally, no crackles, no wheezes and lung sounds not diminished Cardio Rate: regular rate Rhythm: regular rhythm Peripheral pulses: radial pulses present and dorsalis pedis present GI Palpation (GI): no masses Auscultation: normal bowel sounds and normoactive bowel sounds Rectal Exam - Female: deferred Skin General skin exam: no rashes or lesions noted Rashes: no rashes Neuro General: No confusion Cranial nerves: Yes Equal, round and reactive pupils present and Yes Normal hearing present Cognition (Neuro): normal cognition Gait exam (Neuro): Normal gait present Motor exam (neuro): 5/5 motor strength present throughout Deep tendon reflexes (DTR's): Right brachioradialis reflex intensity grade: 2+, Left brachioradialis reflex intensity grade: 2+, Right patellar reflex intensity grade: 2+ and Left patellar reflex intensity grade: 2+ Extrem General: No edema Immunizations tetanus-diphtheria toxoids-Td 2 Lf unit-2 Lf unit/0.5 mL IM suspension Performing Provider: Sisi Rodrigez MD Performing Location: [facility] Administered by: SHEMAR Scott on 03/17/24 14:12 Dose Route Admin Location Dispensed Lot Number Expiration Date NDC Boiler Service Technician 0.5 mL IM Left Deltoid 0.5 mL [id number] 08/28/24 [address]-6 [employer] VIS Given Date VIS Provided VIS Publication Date 03/17/24 Single Vaccine 21 Eligibility Eligibility Date Funding Source Not [facility] Eligible 03/17/24 [facility] Assessment and Plan Assessment & Plan (1) Annual physical exam: Code(s): Z00.00 - Encounter for general adult medical examination without abnormal findings Plan: Patient is advised to eat healthy, keep well hydrated, keep active and have adequate sleep. (2) Impaired fasting blood sugar: Code(s): R73.01 - Impaired fasting glucose Plan: Decrease the amount of carbohydrate intake, pasta, bread, rice and potatoes are all sugar and that is aside from all the sweet stuff, remember that fruits are good but they are Sweet also. (3) Obesity (BMI 30-39.9): Comment: With hx of IFG and constipation Code(s): E66.9 - Obesity, unspecified Plan: Diet and exercise (4) GERD (gastroesophageal reflux disease): Code(s): K21.9 - Gastro-esophageal reflux disease without esophagitis Qualifiers: Esophagitis presence: without esophagitis Qualified Code(s): K21.9 - Gastro-esophageal reflux disease without esophagitis Plan: Avoid the foods that causes that usually spicy foods, tomato products, juices, coffee, soda and foods that your sensitive to. After eating do not lie down, allow 3-4 hours before in lie down. And keep the head of bed above 30 degrees to avoid the acid from going up. Has been placed on PPI and Pepcid (5) Migraine: Code(s): G43.909 - Migraine, unspecified, not intractable, without status migrainosus Qualifiers: Intractability: not intractable Migraine type: without aura Status migrainosus presence: without status migrainosus Qualified Code(s): G43.009 - Migraine without aura, not intractable, without status migrainosus Plan: Patient is advised to eat healthy, keep well hydrated, keep active and have adequate sleep. (6) Asthma: Code(s): J45.909 - Unspecified asthma, uncomplicated Qualifiers: Asthma complication type: uncomplicated Asthma persistence: intermittent Asthma severity: mild Qualified Code(s): J45.20 - Mild intermittent asthma, uncomplicated Plan: Continue with albuterol and Wixela Orders: Orders Comprehensive Met. Panel Today R73.01 - Impaired fasting glucose Td State Immunization Today Z23 - Encounter for immunization Complete Blood Count Auto Diff Today R73.01 - Impaired fasting glucose Hemoglobin A1c Today R73.01 - Impaired fasting glucose Medications: New tetanus-diphtheria toxoids-Td 0.5 mL IM ONCE 0.5 mL 0RF Z23 - Encounter for immunization Coding Level of Care Code Est Pt Prev Care 40-64y(72129) Diagnoses Annual physical exam Z00.00 Impaired fasting blood sugar R73.01 Obesity (BMI 30-39.9) E66.9 Gastroesophageal reflux disease without esophagitis K21.9 Esophagitis presence: without esophagitis Migraine without aura and without status migrainosus, not intractable G43.009 Intractability: not intractable Migraine type: without aura Status migrainosus presence: without status migrainosus Mild intermittent asthma without complication J45.20 Asthma complication type: uncomplicated Asthma persistence: intermittent Asthma severity: mild
[2024-03-17 13:13] VITALS: BP 106/62; PULSE 77; O2SAT 96; BMI 34.6
== END 2024-03-17 14:19 | disposition home or self-care (01) ==
PROVIDERS: PCP Internal Medicine; Visit Provider Internal Medicine
DX: Z00.00 Encounter for general adult medical examination without abnormal findings (principal); E66.9 Obesity, unspecified; Z68.34 Body mass index [BMI] 34.0-34.9, adult; Z23 Encounter for immunization; R73.01 Impaired fasting glucose; K21.9 Gastro-esophageal reflux disease without esophagitis; G43.009 Migraine without aura, not intractable, without status migrainosus; J45.20 Mild intermittent asthma, uncomplicated
CPT/HCPCS: 90471; 90714; 99396

== ENCOUNTER 2024-05-26 09:33 | Outpatient (REF) | payer OTHER, SELFPAY ==
[2024-05-26 10:49] LABS: Basophils Percent Auto 0.6 % (0-2); Eosinophils Absolute Auto 0.2 X10*3/uL (0.0-0.4); Eosinophils Percent Auto 2.8 % (0-4); Hematocrit 39.9 % (37.0-47.0); Hemoglobin 12.9 g/dl (12.0-16.0); Imm Gran Abs Auto 0.02 X10*3/uL (0.00-0.03); Imm Gran Pct Auto 0.3 % (0.0-0.4); Lymphocytes Absolute Auto 2.5 X10*3/uL (1.2-4.9); Lymphocytes Percent Auto 40.8 % (20-40); MANUAL DIFF FLAG NO; Mean Corpuscular HGB Conc 32.3 g/dl (31.0-35.0); Mean Corpuscular Hemoglobin 28.7 pg (27.0-33.0); Mean Corpuscular Volume 88.9 fL (80.0-98.0); Mean Platelet Volume 11.5 fL (9.4-12.3); Monocytes Absolute Auto 0.4 X10*3/uL (0.1-1.2); Monocytes Percent Auto 6.8 % (2-11); Neutrophils Percent Auto 48.7 % (45-73); Platelet Count 356 X10*3/uL (160-400); Red Blood Count 4.49 X10*6/uL (4.20-5.50); Red Cell Distribution Width 12.6 % (11.0-16.0); White Blood Count 6.2 X10*3/uL (4.8-10.8)
[2024-05-26 11:33] LABS: Estimated Average Glucose 128 mg/dL; Hemoglobin A1C 145.4044 umol/L; Hemoglobin A1c % 6.1 % (<6.0)
[2024-05-26 11:54] LABS: Alanine Aminotransferase 7 U/L (0-31); Albumin Level 4.1 g/dL (3.5-5.0); Alkaline Phosphatase 108 U/L (39-117); Anion Gap 10 (12-20); Aspartate Amino Transferase 24 U/L (5-31); Bilirubin Total 0.5 mg/dL (0.0-1.0); Blood Urea Nitrogen 11 mg/dL (9-16); Calcium 9.4 mg/dL (8.4-10.2); Carbon Dioxide 25 mmol/L (22-29); Chloride 111 mmol/L (96-108); Estimated Glomerular Filt Rate > 60; Glucose Random 120 mg/dL (60-115); Potassium 3.8 mmol/L (3.3-5.1); Sodium 142 mmol/L (135-145)
== END 2024-05-26 09:34 | disposition home or self-care (01) ==
LOC: HO.LAB 09:33
PROVIDERS: PCP Internal Medicine; Visit Provider Internal Medicine
DX: R73.01 Impaired fasting glucose (principal)
CPT/HCPCS: 36415; 80053; 83036; 85025

== ENCOUNTER 2024-08-28 14:15 | Outpatient (REF) | payer OTHER, SELFPAY | END 2024-08-28 14:16 | disposition home or self-care (01) | LOC: HO.MAMMO 14:15 | PROVIDERS: PCP Internal Medicine; Visit Provider Internal Medicine | DX: Z12.31 Encounter for screening mammogram for malignant neoplasm of breast (principal) | CPT/HCPCS: 77063; 77067 ==

== ENCOUNTER → 2024-08-28 15:00 | Outpatient (BNV) | payer OTHER, SELFPAY | PROVIDERS: PCP Internal Medicine; Visit Provider Internal Medicine | DX: Z12.31 Encounter for screening mammogram for malignant neoplasm of breast (principal) | CPT/HCPCS: 77063; 77067 ==

== ENCOUNTER 2024-08-30 12:48 | Outpatient (AMB) | payer OTHER, SELFPAY ==
--- NOTE | 2024-08-30 12:57 | MHC.OFFVIS ---
Vital Signs 08/30/24 13:09 Height 5 ft Weight 175 lb 7.807 oz BMI 34.3 BP 114/60 Blood Pressure Location Rt brachial Position Sitting Pulse 74 Pulse Source Pulse Oximeter Pulse Oximetry (%) 100 Oxygen Delivery Method Room Air Intake Visit Reasons: 6 month follow up Intake Note: ESTABLISHED PATIENT for constipation mgmt. Chief Complaint; Pt would prefer to wait for in person scada engineer for provider visit. Pt reports new onset of abd burning sensation type pain since last week. Pt denies any concerns w/ reflux, N+V. or fecal abn. Pt denies any additional concerns at this time. Crystal Flat Grinder Required: Yes Crystal Flat Grinder Services: Crystal Flat Grinder Present (EDNA Szymanski) Crystal Flat Grinder Name: Regi [id number]/ EDNA Szymanski Accompanied by: Self / Same As Patient Allergies fluticasone [From Flonase] Allergy (Unknown, Verified 08/30/24 12:57) glaucoma suspect Penicillins [PENICILLINS] Allergy (Unknown, Verified 08/30/24 12:57) RASH HPI HPI 6 month follow up: Details: LAST VISIT Constipation GERD (gastroesophageal reflux disease) IBS (irritable bowel syndrome) Postprandial epigastric pain Plan Continue PPI and H2 hugo. Avoid dietary triggers and late night snacking. Staying upright for minimal 3 hours discussed with patient. Continue Dulcolax daily. Increase fluid intake and activity to promote better bowel motility. Patient will return in 6 months, sooner on as needed basis. Agreeable to plan of care and verbalizes understanding of instructions. She was given the opportunity to ask questions and all questions answered. ? Thank you for allowing me to participate in her care Medications Refilled pantoprazole take one tablet half an hour before breakfast 40 mg PO DAILY 90 tabs 2RF K21.9 bisacodyl (Dulcolax (bisacodyl)) 10 mg (2 x 5 mg) PO BEDTIME 180 tabs 4RF famotidine (Pepcid) 20 mg PO BEDTIME 90 tabs 2RF K21.9 TODAY'S VISIT Patient is here today for follow-up. Patient reports that in the past couple weeks she started to experience burning in the middle of her abdomen and epigastric region postprandially. Patient reports that she has not change anything. Currently she is taking pantoprazole in the morning. Patient admits that even when drinking water she will have the symptoms. Patient reports that she is moving her bowels every day now that she takes Dulcolax. Patient denies any diarrhea or mucus in her stool. Denies any dyspepsia, dysphagia or odynophagia. Denies melena, hematochezia. [facility] Medical History Glaucoma suspect History of right bundle branch block Asthma Vitamin D deficiency Obesity (BMI 30-39.9) Hypertension GERD (gastroesophageal reflux disease) Chronic radicular low back pain Migraine Anemia Surgical History History of esophagogastroduodenoscopy (EGD) Hx of colonoscopy History of lumpectomy of left breast History of cataract surgery History of section Family History Father Stroke Hypertension Mother Bladder cancer CVD (cardiovascular disease) Maternal Grandfather Heart attack Maternal Uncle Mouth cancer Paternal Aunt Brain cancer Maternal Aunt Heart attack Brother Heart attack Brother Heart attack Other Anxiety Mental health disorder Social History Household Members: Spouse and Children Housing: House Alcohol intake: never Patient Tobacco Use Status: Never used Tobacco e-Cigarette/Vaping Use: Never Used Second Hand Smoke Exposure: No service: No Current occupational status: unemployed Current occupational exposures/hazards: No Sexual orientation: Straight/Heterosexual Gender identity: Female Cognitive needs: No Hearing needs: No Vision needs: Yes Female Reproductive History Menstrual Age of Menarche: 12 Review of Systems Const Denies weight gain and Denies weight loss ENT Reports no additional complaints, Denies dysphagia and Denies odynophagia Card Reports no additional complaints Resp Reports no additional complaints GI Reports abdominal pain (Burning like pain in the middle of her abdomen), Denies belching, Denies melena, Denies bloating, Denies change in bowel habits, Denies dysphagia, Denies excessive flatus, Denies dyspepsia, Denies heartburn, Denies diarrhea, Denies loose stools, Denies nausea, Denies odynophagia and Denies vomiting Musc Reports no additional complaints Neuro Reports no additional complaints Psych Reports no additional complaints Endo Reports no additional complaints Physical Exam Vital Signs: Last Vital Signs Pulse 74 08/30/24 13:09 BP 114/60 08/30/24 13:09 Pulse Ox 100 08/30/24 13:09 Oxygen Delivery Method Room Air 08/30/24 13:09 BMI result Body Mass Index 34.3 Const General: healthy appearing and no acute distress Nutritional Appearance: obese Orientation/consciousness: patient oriented x3 Resp Effort & Inspection: normal respiratory effort, able to speak in complete sentences, no tracheal deviation and symmetric chest movement Auscultation: clear to auscultation bilaterally Cardio Rate: regular rate GI Inspection: Yes normal to inspection, No distended and Yes obesity Palpation (GI): Soft to palpation, not firm, nontender and No hepatosplenomegaly present Auscultation: normal bowel sounds General: Yes no CVA tenderness Back/Spine/Pelvis Back: no CVA tenderness Skin General skin exam: elasticity normal, turgor normal and dry skin Neuro General: patient oriented x3 Psych Appearance: grossly normal Mental Status: mental status grossly normal Assessment & Plan Assessment & Plan (1) Constipation: Code(s): K59.00 - Constipation, unspecified Category: Medical Qualifiers: Constipation type: chronic idiopathic constipation Qualified Code(s): K59.04 - Chronic idiopathic constipation (2) GERD (gastroesophageal reflux disease): Code(s): K21.9 - Gastro-esophageal reflux disease without esophagitis Category: Medical Qualifiers: Esophagitis presence: without esophagitis Qualified Code(s): K21.9 - Gastro-esophageal reflux disease without esophagitis (3) IBS (irritable bowel syndrome): Code(s): K58.9 - Irritable bowel syndrome, unspecified Qualifiers: Irritable bowel syndrome type: with constipation Qualified Code(s): K58.1 - Irritable bowel syndrome with constipation (4) Postprandial epigastric pain: Code(s): R10.13 - Epigastric pain (5) Epigastric burning sensation: Code(s): R10.13 - Epigastric pain Plan Patient reports epigastric postprandial burning. Patient reports that does not matter what she eats sometimes even drinking water will make her feel like that. Occasional postprandial abdominal bloating. Moves her bowels better now that she takes Dulcolax. Patient has bowel movements daily. Will change pantoprazole to Nexium. Patient was encouraged to avoid dietary triggers and late night snacking. Staying upright for minimum hours after meals discussed with her. Patient will be due to go for colonoscopy May of this year. Will return in 3 months to re-evaluate her reflux and epigastric pain/burning. Patient is agreeable to this plan and verbalizes understanding of instructions. She was given the opportunity to ask questions and all questions answered. Thank you for allowing me to participate in her care Medications: New esomeprazole magnesium (Nexium) 40 mg PO DAILY 30 caps 5RF K21.9 - Gastro-esophageal reflux disease without esophagitis Discontinued pantoprazole take one tablet half an hour before breakfast Discontinued Reason: Doctor's Order 40 mg PO DAILY 90 tabs 2RF K21.9 - Gastro-esophageal reflux disease without esophagitis Coding Level of Care Code Est Pt Level 4 (95055) Complex EM visit Add On G2211 Diagnoses Chronic idiopathic constipation K59.04 Constipation type: chronic idiopathic constipation Gastroesophageal reflux disease without esophagitis K21.9 Esophagitis presence: without esophagitis Irritable bowel syndrome with constipation K58.1 Irritable bowel syndrome type: with constipation Postprandial epigastric pain R10.13 Epigastric burning sensation R10.13 Time Spent (min) 35 Comment 25 minutes spent with patient and additional 10 minutes spent reviewing her records
[2024-08-30 13:09] VITALS: BP 114/60; PULSE 74; O2SAT 100; BMI 34.3
--- OUTSIDE RECORDS SUMMARY | 2024-08-30 14:10 | XMS_ITS | Clinical Summary ---
Author Organization [employer] Address [address] [facility] [address] [place] [address] Care Team Providers Care Job Estimator Name Role Phone Unavailable Primary Care Provider Unavailabl e Immunizations Name Administration Dates Next Due Moderna Covid-19 Vaccine 12+ 12/04/2020,11/07/19 Moderna Covid-19 Vaccine 6+ Bivalent 09/02/2022 Social History Tobacco Use Types Packs/Day Years Used Date Smoking Tobacco: Never Assessed Comments Unknown Sex and Gender Information Value Date Recorded Sex Assigned at Female 09/02/2022 1:10 PM EST Legal Sex Female 1:08 PM EST Gender Identity Female 09/02/2022 1:10 PM EST Sexual Orientation Straight 09/02/2022 1: 10 PM EST Plan of Treatment Health Maintenance Due Date Last Done Comments CT Colonography 1962 Colonoscopy 1962 Colorectal Cancer Screening 1962 Depression Screening 1962 FIT DNA/Cologuard 1962 FIT 1962 FOBT 1962 Sigmoidoscopy 1962 Alcohol/Substance Use Screening 1974 Tobacco Screening 1974 DTaP/Tdap/Td Vaccines (1 - Tdap) 1981 Pap Smear 12/08/1983 Cervical Cancer Screening 1992 HPV/Cotest 1992 Mammogram 2002 Pneumococcal Vaccine: 50+ Years (1 of 1 - PCV) 2012 Zoster Vaccines (1 of 2) 2012 COVID-19 Vaccine ( - 2023-2 5 season) 2024 09/02/2022, 12/04/2020, 11/06/2020 Influenza Vaccine (#1) 2024 RSV Patients and Patients Aged 60 years or older (1 - 1-dose 75+ series) 2037 HIB Vaccines Aged Out No longer eligi ble based on patient's age to complete this topic HPV Vaccines Aged Out No longer eligi ble based on patient's age to complete this topic Hepatitis A Vaccines Aged Out No long er eligible based on patient's age to complete this topic Hepatitis B Vaccines Aged Out No long er eligible based on patient's age to complete this topic IPV Vaccines Aged Out No longer eligi ble based on patient's age to complete this topic Meningococcal Vaccine Aged Out No basilio migdalia eligible based on patient's age to complete this topic Pneumococcal Vaccine: Pediatrics (0 to 5 Years) and At-Risk Patients (6 to 49) Years) Aged Out No longer eligible b ased on patient's age to complete this topic RSV under 20 months Aged Out No longe r eligible based on patient's age to complete this topic Rotavirus Vaccines Aged Out No longer eligible based on patient's age to complete this topic
== END 2024-08-30 13:22 | disposition home or self-care (01) ==
PROVIDERS: PCP Internal Medicine; Visit Provider Nurse Practitioner Family
DX: K59.04 Chronic idiopathic constipation (principal); K21.9 Gastro-esophageal reflux disease without esophagitis; K58.1 Irritable bowel syndrome with constipation; R10.13 Epigastric pain
CPT/HCPCS: 99214; G2211

== ENCOUNTER → 2024-08-30 12:48 | Outpatient (BNVA) | payer OTHER, SELFPAY | PROVIDERS: PCP Internal Medicine; Visit Provider Nurse Practitioner Family | DX: K59.04 Chronic idiopathic constipation (principal); K21.9 Gastro-esophageal reflux disease without esophagitis; K58.1 Irritable bowel syndrome with constipation; R10.13 Epigastric pain | CPT/HCPCS: 99212 ==

== ENCOUNTER 2024-09-05 10:34 | Outpatient (AMB) | payer OTHER, SELFPAY ==
--- NOTE | 2024-09-05 10:44 | A.OFFPC_ITS ---
Vital Signs 09/05/24 10:45 Height 5 ft Weight 175 lb BMI 34.2 BP 122/78 Blood Pressure Location Lt brachial Position Sitting Pulse 77 Pulse Source Pulse Oximeter Pulse Oximetry (%) 98 Oxygen Delivery Method Room Air Intake Visit Reasons: asthma, IGT Allergies fluticasone [From Flonase] Allergy (Unknown, Verified 09/05/24 10:46) glaucoma suspect Penicillins [PENICILLINS] Allergy (Unknown, Verified 09/05/24 10:46) RASH Medication List - Last Reconciled 09/05/24 by Sisi Rodrigez MD albuterol sulfate 2.5 mg (3 mL) inhalation QID PRN albuterol sulfate 90 mcg/actuation (ProAir HFA) 2 inhalations PO Q4H PRN bisacodyl (Dulcolax (bisacodyl)) 10 mg (2 x 5 mg) PO BEDTIME brimonidine 0.2% 1 drp ophthalmic (eye) Q12H cholecalciferol (vitamin D3) 50 mcg PO DAILY esomeprazole magnesium (Nexium) 40 mg PO DAILY famotidine (Pepcid) 20 mg PO BEDTIME fluticasone propion-salmeterol 250-50 mcg/dose (Wixela Inhub) 1 inh inhalation BID ibuprofen 600 mg PO Q8H PRN montelukast 10 mg PO BEDTIME 90 days polyethylene glycol 3350 (Gavilax) 17 grams PO DAILY PRN rizatriptan mg PO topiramate 100 mg PO BID 90 days Tobacco use date assessed: 09/05/24 Dental Screening Dental Screen Date: 09/05/24 Did you have a dental visit in the last 12 months?: Yes Did you have a dental problem in the last 6 months where you did not have access to dental care?: No Was dental information given to patient?: Patient has dentist HPI asthma, IGT HPI Details The patient is a 63-year-old female presenting with a history of GERD, asthma, and impaired glucose tolerance. She last underwent a colonoscopy in May 2022 and it is due this year; her mammogram is up to date but due for this month. She consulted a tire builder heavy service in August for epigastric burning and was prescribed Nexium 40 mg daily. Her May 2024 blood work showed normal blood count, electrolytes, renal and liver functions. Concerns were noted regarding elevated fasting blood sugar of 120 mg/dL and an increase in hemoglobin A1c from 5.9% to 6.1%. A recent LDL was 119 mg/dL and thyroid function was normal. The patient's asthma is managed with albuterol inhaler used once or twice a week, montelukast, and Wexela daily with mouth rinsing. Diet includes no fibrous foods, thus fiber supplementation is recommended to manage occasional constipation, treated efficiently with Miralax and Dulcolax. A familial diabetes history is noted, and lifestyle modifications with increased hydration and exercise have been discussed to manage impaired glucose tolerance. The patient's sugar intake, notably in coffee, was identified as a significant dietary component contributing to elevated glucose levels. [facility], [facility] Medical History (Updated 09/05/24 @ 10:55 by Sisi Rodrigez MD) Hypertension Glaucoma suspect History of right bundle branch block Asthma Vitamin D deficiency Obesity (BMI 30-39.9) GERD (gastroesophageal reflux disease) Chronic radicular low back pain Migraine Anemia Surgical History History of esophagogastroduodenoscopy (EGD) Hx of colonoscopy History of lumpectomy of left breast History of cataract surgery History of section Family History Father Stroke Hypertension Mother Bladder cancer CVD (cardiovascular disease) Maternal Grandfather Heart attack Maternal Uncle Mouth cancer Paternal Aunt Brain cancer Maternal Aunt Heart attack Brother Heart attack Brother Heart attack Other Anxiety Mental health disorder Social History Household Members: Spouse and Children Housing: House Alcohol intake: never Patient Tobacco Use Status: Never used Tobacco Tobacco use type: Cigarette e-Cigarette/Vaping Use: Never Used Second Hand Smoke Exposure: No service: No Current occupational status: unemployed Current occupational exposures/hazards: No Sexual orientation: Straight/Heterosexual Gender identity: Female Cognitive needs: No Hearing needs: No Vision needs: Yes Female Reproductive History Menstrual Age of Menarche: 12 Questionnaire PHQ-9 Over the last 2 weeks, how often have you been bothered by any of the following problems? 1. Little interest or pleasure in doing things: not at all 2. Feeling down, depressed, or hopeless: several days 3. Trouble falling or staying asleep, or sleeping too much: several days 4. Feeling tired or having little energy: several days 5. Poor appetite or overeating: not at all 6. Feeling bad about yourself - or that you are a failure or have let yourself or your family down: not at all 7. Trouble concentrating on things, such as reading the newspaper or watching television: not at all 8. Moving or speaking so slowly that other people could have noticed. Or the opposite - being so fidgety or restless that you have been moving around a lot more than usual: not at all 9. Thoughts that you would be better off or of hurting yourself in some way: not at all Total score: 3 Depression Screening Interpretation: Positive Depression Screening Done: Yes Source: Developed by Drs. Stevenson Collins, Gaviota Abrams, Vincent Busby and colleagues, with an educational luis antonio from [employer]. Thrive Questionnaire Date Thrive assessed: 09/05/24 I am a: Patient What is your living situation today?: I have a steady place to live Within the past 12 months, did the food you bought not last and you didn't have the money to get more?: Never true Within the past 12 months, did you worry whether your food would run out before you got money to buy more?: Never true Do you have trouble paying for medicines?: No Do you have trouble getting transportation to medical appointments?: No Do you have trouble paying your heating and electricity bill?: No Do you have trouble taking care of your child, family member or friend?: I choose not to answer this question Do you have trouble with day-to-day activities such as bathing, preparing meals, shopping, managing finances, etc.?: No Are you currently unemployed and looking for a job?: I choose not to answer this question Are you interested in more education?: I choose not to answer this question Please select the resources that you would like help with: None Currently or been in a relationship where the following occur: I choose not to answer THRIVE Score: 0 AUDIT C Alcohol Use Questionnaire (AUDIT-C) 3. How often do you have six or more drinks on one occasion?: Never Total Score: 0 RIOS-7 AMB Questionnaire RIOS-7 Date RIOS - 7 assessed: 09/05/24 Feeling nervous, anxious, or on edge: 0 = Not at all Not being able to stop or control worryin = Not at all Worrying too much about different things: 0 = Not at all Trouble relaxin = Not at all Being so restless that it is hard to sit still: 0 = Not at all Becoming easily annoyed or irritable: 0 = Not at all Feeling afraid as if something awful might happen: 0 = Not at all Total RIOS-7 score (0-4 normal; 5-9 mild; 10-14 moderate; 15-21 severe): 0 Source: Developed by Drs. Stevenson Collins, Gaviota Abrams, Vincent Busby and colleagues, with an educational luis antonio from [employer]. Physical exam (Primary Care) Vital Signs: Last Vital Signs Pulse 77 09/05/24 10:45 BP 122/78 09/05/24 10:45 Pulse Ox 98 09/05/24 10:45 Oxygen Delivery Method Room Air 09/05/24 10:45 BMI result Body Mass Index 34.2 Tobacco/Smoking Status: Tobacco use Status Tobacco use date assessed 09/05/24 09/05/24 10:53 Patient Tobacco Use Status Never used Tobacco 09/05/24 10:47 Tobacco use type Cigarette 09/05/24 10:53 e-Cigarette/Vaping Use Never Used 09/05/24 10:47 PHQ-9: PHQ-9 Score PHQ-9: Total score 3 09/05/24 10:55 Depression Screening Interpretation: Positive Thrive Assessment: Date of Thrive Assessment Date Thrive assessed 09/05/24 09/05/24 10:47 Currently or been in a relationship where the following occur: I choose not to answer Const General: alert; No acute distress Eyes Conjunctivae: conjunctivae normal Resp Auscultation: clear to auscultation bilaterally Cardio Rate: regular rate Rhythm: regular rhythm GI Inspection: Yes normal to inspection Extrem General: Yes normal to inspection and No edema Office Procedures Flu Questionnaire Does the patient have a severe egg allergy?: No Does the patient have severe life threatening allergies?: No Does the patient have a fever or illness today?: No Has the patient ever had Guillain-Albion Syndrome?: No Has the patient ever had any past reaction to a flu shot?: No Immunizations Fluarix Triv [id number] (PF) 45 mcg (15 mcg x 3)/0.5 mL IM syringe Performing Provider: Sisi Rodrigez MD [facility] Administered by: Tavia Cummings CMA on 09/05/24 10:55 Dose Route Admin Location Dispensed Lot Number Expiration Date NDC Cutter Helper 0.5 mL IM Left Deltoid 0.5 mL [id number] 01/15/25 [id number] [employer] VIS Given Date VIS Provided VIS Publication Date 09/05/24 Single Vaccine 21 Eligibility Eligibility Date Funding Source Not [facility] Eligible 09/05/24 Private Coding Level of Care Code Est Pt Level 4 (70819) Complex EM visit Add On G2211 Diagnoses Obesity (BMI 30-39.9) E66.9 Mild intermittent asthma without complication J45.20 Asthma complication type: uncomplicated Asthma persistence: intermittent Asthma severity: mild Impaired fasting blood sugar R73.01 Generalized anxiety disorder F41.1 Chronic idiopathic constipation K59.04 Constipation type: chronic idiopathic constipation Assessment & Plan Assessment & Plan (1) Obesity (BMI 30-39.9): Comment: With hx of IFG and constipation Code(s): E66.9 - Obesity, unspecified Category: Medical Plan: Diet and exercise (2) Asthma: Code(s): J45.909 - Unspecified asthma, uncomplicated Category: Medical Qualifiers: Asthma complication type: uncomplicated Asthma persistence: intermittent Asthma severity: mild Qualified Code(s): J45.20 - Mild intermittent asthma, uncomplicated Plan: Patient is on albuterol inhaler and Wixela for controller patient also takes montelukast (3) Impaired fasting blood sugar: Code(s): R73.01 - Impaired fasting glucose Category: Medical Plan: Decrease the amount of carbohydrate intake, pasta, bread, rice and potatoes are all sugar and that is aside from all the sweet stuff, remember that fruits are good but they are Sweet also. (4) Generalized anxiety disorder: Code(s): F41.1 - Generalized anxiety disorder Category: Medical Plan: Stable (5) Constipation: Code(s): K59.00 - Constipation, unspecified Category: Medical Qualifiers: Constipation type: chronic idiopathic constipation Qualified Code(s): K59.04 - Chronic idiopathic constipation Plan - Continue Nexium 40 mg for GERD management and monitor symptoms. Increase fiber intake with supplements as advised. - For asthma, continue current use of albuterol as needed, Wexela daily care with mouth rinsing, and montelukast for control. Assess the need for additional inhaler if asthma control worsens. - Continue monitoring impaired glucose tolerance with lifestyle modifications focusing on diet and physical activity. Plan for follow-up fasting blood glucose and A1c testing in three months. - Ensure completion of the recommended mammogram, and schedule a follow-up colonoscopy as appropriate for health maintenance. - Address obesity with dietary modifications, specifically reducing excessive sugar intake particularly in coffee, and increase physical activity. - Evaluate anxiety management during further visits and adjust therapeutic approaches as needed. - Reassess all conditions and medication adherence in the next scheduled visit. Orders: Orders Free T4 (Free Thyroxine) 3 Months R73.01 - Impaired fasting glucose Comprehensive Met. Panel 3 Months R73.01 - Impaired fasting glucose Complete Blood Count Auto Diff 3 Months R73.01 - Impaired fasting glucose Hemoglobin A1c 3 Months R73.01 - Impaired fasting glucose Vitamin B12 and Folate 3 Months R73.01 - Impaired fasting glucose Influenza [id number] Immunization Today Z23 - Encounter for immunization Lipid Panel 3 Months E78.00 - Pure hypercholesterolemia, unspecified, R73.01 - Impaired fasting glucose Thyroid Stimulating Hormone 3 Months R73.01 - Impaired fasting glucose Medications: New psyllium husk (Fiber (psyllium husk)) 1.04 grams (2 x 0.52 gram) PO DAILY 60 caps 3RF K59.04 - Chronic idiopathic constipation Changed From albuterol sulfate 90 mcg/actuation (ProAir HFA) 2 inhalations PO Q4H PRN 8.5 grams 0RF bronchospasm J45.20 - Mild intermittent asthma, uncomplicated To albuterol sulfate 90 mcg/actuation 2 inhalations PO Q4H PRN 8.5 grams 0RF bronchospasm J45.20 - Mild intermittent asthma, uncomplicated Refilled cholecalciferol (vitamin D3) 50 mcg PO DAILY 90 caps 3RF R79.89 - Other specified abnormal findings of blood chemistry
[2024-09-05 10:45] VITALS: BP 122/78; PULSE 77; O2SAT 98; BMI 34.2
--- OUTSIDE RECORDS SUMMARY | 2024-09-05 11:34 | XMS_ITS | Clinical Summary ---
Author Organization [employer] Address [address] [facility] 7 [place] [address] Care Team Providers Care Regulatory Affairs Spec Name Role Phone Unavailable Primary Care Provider [...]
== END 2024-09-05 11:21 | disposition home or self-care (01) ==
PROVIDERS: PCP Internal Medicine; Visit Provider Internal Medicine
DX: J45.20 Mild intermittent asthma, uncomplicated (principal); E66.9 Obesity, unspecified; Z68.34 Body mass index [BMI] 34.0-34.9, adult; R73.01 Impaired fasting glucose; F41.1 Generalized anxiety disorder; K59.04 Chronic idiopathic constipation; Z23 Encounter for immunization

== ENCOUNTER → 2024-09-05 10:34 | Outpatient (BNVA) | payer OTHER, SELFPAY | PROVIDERS: PCP Internal Medicine; Visit Provider Internal Medicine | DX: Z23 Encounter for immunization (principal); E66.9 Obesity, unspecified; J45.20 Mild intermittent asthma, uncomplicated; R73.01 Impaired fasting glucose; F41.1 Generalized anxiety disorder; K59.04 Chronic idiopathic constipation | CPT/HCPCS: 90471; 90656; 99212 ==

== ENCOUNTER 2024-10-15 14:16 | Emergency (ER) | payer OTHER, SELFPAY ==
--- NOTE | 2024-10-15 | ECG_ITS ---
Test Reason : CP Blood Pressure : */* mmHG Vent. Rate : 59 BPM Atrial Rate : 59 BPM P-R Int : 126 ms QRS Dur : 122 ms QT Int : 444 ms P-R-T Axes : 4 63 31 degrees QTcB Int : 439 ms Sinus bradycardia Right bundle branch block Abnormal ECG When compared with ECG of 09-Dec-2023 08:17, No significant change was found Referred By: Generic ED Physician Electronically Signed By: IRVIN ACEVEDO
--- NOTE | ~2024-10-15 | XR_ITS ---
CLINICAL HISTORY: chest pain Two views of the chest. COMPARISON: XR chest dated 09/28/23 at 10:45 EDT FINDINGS: Normal heart and mediastinal contours. No consolidation. No pleural effusion or pneumothorax. Mild spondylosis. IMPRESSION: 1. No consolidation. This document has been electronically signed by: Jesús Roa MD on 10/15/2024 15:05:37
[2024-10-15 14:26] VITALS: BP 114/54; PULSE 62; RESP 18; TEMP 36.5; O2SAT 99; BMI 34.1
--- NOTE | 2024-10-15 14:28 | ED_ITS ---
HPI - Chest Pain General Chief Complaint: Chest Pain Stated Complaint: chest pain Time Seen by Provider: 10/15/24 14:59 Source: patient Mode of arrival: wheelchair Limitations: no limitations History of Present Illness ED Provider: liam trevizo np HPI narrative: patient is a 63-year-old female who presents emergency department for evaluation endorsing pain lower substernal/ epigastric pain with onset yesterday evening. Yesterday afternoon she does state that she was experiencing a lack of appetite but not particularly nauseous. She had crackers for dinner at approximately 17:00. At 19:00 she developed the pain which progressed throughout the night as well as today. She had 2 episodes of vomiting today. However she was able to eat breakfast without vomiting or exacerbation of her symptoms. She reports a chronic dry cough due to her asthma but not increased from her baseline. In the past she has experienced a similar episode states she was not evaluated for this, that had associated dizziness at that time not currently. Denies any radiation of pain to the arm, associated diaphoresis or exacerbation on exertion. When asked she states she is not taking medication for acid reflux. Related Data Home Medications ?Medication ?Instructions ?Recorded ?Confirmed brimonidine 0.2 % eye drops 1 drp ophthalmic (eye) Q12H 04/01/21 09/05/24 rizatriptan 5 mg tablet mg PO 07/01/22 09/05/24 Previous Rx's ?Medication ?Instructions ?Recorded albuterol sulfate 2.5 mg/3 mL 2.5 mg (3 mL) inhalation QID PRN 02/26/22 (0.083 %) solution for nebulization shortness of breath or wheezing #180 mL polyethylene glycol 3350 17 17 g PO DAILY PRN constipation 02/01/23 gram/dose oral powder (Gavilax) #510 grams ibuprofen 600 mg tablet 600 mg PO Q8H PRN pain #30 tabs 11/29/23 montelukast 10 mg tablet 10 mg PO BEDTIME 90 days #90 tabs 02/10/24 bisacodyl 5 mg tablet,delayed 10 mg (2 x 5 mg) PO BEDTIME #180 03/07/24 release (Dulcolax (bisacodyl)) tabs famotidine 20 mg tablet (Pepcid) 20 mg PO BEDTIME #90 tabs 03/07/24 fluticasone 250 mcg-salmeterol 50 1 inh inhalation BID #60 ea 08/12/24 mcg/dose blistr powdr for inhalation (Primoxmartinez Inhub) topiramate 100 mg tablet 100 mg PO BID 90 days #180 tabs 08/13/24 esomeprazole magnesium 40 mg 40 mg PO DAILY #30 caps 08/30/24 capsule,delayed release (Nexium) albuterol sulfate 90 mcg/actuation 2 inh PO Q4H PRN bronchospasm #8.5 09/05/24 aerosol inhaler grams cholecalciferol (vitamin D3) 50 50 mcg PO DAILY #90 caps 09/05/24 mcg (2,000 unit) capsule psyllium husk 0.52 gram capsule 1.04 g (2 x 0.52 gram) PO DAILY 09/05/24 (Fiber (psyllium husk)) #60 caps famotidine 20 mg tablet 20 mg PO DAILY #20 tabs 10/15/24 Allergies Allergy/AdvReac Type Severity Reaction Status Date / Time fluticasone [From Flonase] Allergy Unknown glaucoma Verified 10/15/24 14:30 suspect Penicillins [PENICILLINS] Allergy Unknown RASH Verified 10/15/24 14:30 Review of Systems 2 Review of Systems: Yes all other systems are reviewed and are negative PMFSH Past Medical History Attestation statement: The following information was validated with the patient. Source: old records reviewed Medical History Hypertension Glaucoma suspect History of right bundle branch block Asthma Vitamin D deficiency Obesity (BMI 30-39.9) GERD (gastroesophageal reflux disease) Chronic radicular low back pain Migraine Anemia Surgical History History of esophagogastroduodenoscopy (EGD) Hx of colonoscopy History of lumpectomy of left breast History of cataract surgery History of section Family History Family History Father Stroke Hypertension Mother Bladder cancer CVD (cardiovascular disease) Maternal Grandfather Heart attack Maternal Uncle Mouth cancer Paternal Aunt Brain cancer Maternal Aunt Heart attack Brother Heart attack Brother Heart attack Other Anxiety Mental health disorder Social History Social History Household Members: Spouse and Children Housing: House Alcohol intake: never Patient Tobacco Use Status: Never used Tobacco Tobacco use type: Cigarette Smoked in Last 30 Days: No e-Cigarette/Vaping Use: Never Used Second Hand Smoke Exposure: No Use of substances other than those prescribed or required for medical reasons: No Advance Directives: No Advance Directives Information Provided: Yes Do you have a plan to hurt others: No Plan service: No Current occupational status: unemployed Current occupational exposures/hazards: No Sexual orientation: Straight/Heterosexual Gender identity: Female Cognitive needs: No Hearing needs: No Vision needs: Yes Physical Exam 2 Vital Signs: Vital Signs: Last Vital Signs Temp 98.3 F 10/15/24 15:55 Pulse 53 10/15/24 15:55 Resp 16 10/15/24 15:55 BP 153/69 H 10/15/24 15:55 Pulse Ox 100 10/15/24 15:55 O2 Del Method Room Air 10/15/24 15:55 BMI result Body Mass Index 34.1 Appearance: Alert.?Oriented to person, place and time. No acute distress.?Normal affect. Eyes: Pupils equal, round and reactive to light.? ENT: Pharynx normal.?? Neck: Normal inspection.? Neck supple.??No JVD. CVS: Heart sounds normal. Normal heart rate and rhythm.? Pulses normal.?? Respiratory: No respiratory distress.? Lung sounds clear to auscultation bilaterally?? Abdomen: Soft With notable epigastric tenderness upon palpation.. Normoactive bowel sounds. No pulsatile mass.?? Skin: Skin warm and dry.? Normal skin color.? ?? Extremities: No lower extremity edema.? No calf ttp? Neuro: Moves all extremities spontaneously. Sensation intact bilaterally. CN II- XII intact. No focal neuro deficits. Ambulates with normal steady gait. Course Reevaluation(s) Reevaluation #1: CBC is without leukocytosis or anemia, has a mild thrombocytosis 409,000. No significant electrolyte derangement. No JUSTIN. Random glucose of 120. Overall unremarkable LFTs and normal lipase. Viral serologies are negative. High sensitive troponin below detectable limits. EKG reveals a sinus bradycardia with ventricular rate of 59, right bundle-branch block as seen on prior, QTC 439, no ST-elevation, biphasic T-waves V2 V3 as seen on priors. chest x-ray without consolidation or infiltrate to suggest pneumonia. received GI cocktail with improvement in symptoms, able to tolerate oral intake without progression of pain or vomiting. Urinalysis without evidence of infection or microscopic hematuria. Stable for discharge home. Outpatient follow-up with Gastroenterology. Strict return precautions reviewed. Medications Administered Discontinued Medications Generic Name Dose Route Start Last Admin Trade Name Freq PRN Reason Stop Dose Admin Al Hydroxide/Mg Hydroxide 30 ml 10/15/24 15:35 10/15/24 15:47 Magnesium Hydrox/Alum Hydrox 30 Ml Oral.Susp PO 10/15/24 15:36 30 ml ONCE ONE Administration Famotidine 20 mg 10/15/24 15:35 10/15/24 15:47 Famotidine/Pf 20 Mg/2 Ml Vial IVPUSH 10/15/24 15:36 20 mg ONCE ONE Administration Lidocaine HCl 15 ml 10/15/24 15:35 10/15/24 15:47 Lidocaine Hcl Viscous 2 % 15 Ml Solution MUCOUS MEM 10/15/24 15:36 15 ml ONCE ONE Administration Medical Decision Making Medical Decision Making [facility] Narrative: Patient is a 63-year-old female with past medical history of hypertension, right bundle-branch block, asthma, obesity, GERD, migraine, anemia, impaired glucose intolerance who presents to the emergency department for evaluation with complaint of lower substernal chest/ epigastric pain with associated vomiting as per HPI. No evidence of volume overload or shock on exam. EKG without signs of acute ischemia. EKG without evidence of STEMI. Low suspicion for acute PE (Wells low risk), pneumothorax, thoracic aortic dissection, cardiac effusion / tamponade. No recent trauma or injury, no tracheal deviation, unlikely tension pneumothorax. No recent URI symptoms to suggest viral illness, pneumonia, She does however have persistent asthma and a chronic dry nonproductive cough although not acutely changed, may possibly be secondary to costochondritis though lower suspicion given the associated vomiting which is not post-tussive. epigastric abdominal tenderness upon palpation, negative Arredondo sign, unlikely acute cholecystitis, choledocholithiasis, no fever or jaundice to suggest acute cholangitis, may possibly be biliary colic secondary to cholelithiasis. has a history of acid reflux, an associated tenderness upon palpation over the epigastrium or left upper quadrant which may suggest gastritis, no recent hematemesis history less likely to suggest PUD. Denies excessive alcohol consumption, history of diabetes, lower suspicion acute pancreatitis. Will obtain CBC to evaluate for leukocytosis/ anemia, CMP and lipase to evaluate for abnormal electrolytes /abnormal renal function/ abnormal hepatic/biliary function, EKG and troponin to evaluate for ischemia/ACS. Chest x-ray to evaluate for consolidation/ infiltrate/ mass/ pulmonary congestion. will try GI cocktail with famotidine, Maalox, and lidocaine viscous for management at this time. Differential Diagnosis Differential Diagnoses: The differential diagnosis associated with the presentation includes (See narrative above) Admission/Observation Consideration of admission/observation: Escalation of care including admission/observation considered (See narrative above and course narrative for further detail) Lab Data MDM Lab Attestation statement: I reviewed the patient's lab results. ( See course narrative) 10/15/24 14:37 10/15/24 14:37 Labs: Lab Results 10/15/24 10/15/24 Range/Units 14:37 17:21 WBC 10.1 (4.8-10.8) X10*3/uL RBC 4.46 (4.20-5.50) X10*6/uL Hgb 13.3 (12.0-16.0) g/dl Hct 38.2 (37.0-47.0) % MCV 85.7 (80.0-98.0) fL MCH 29.8 (27.0-33.0) pg MCHC 34.8 (31.0-35.0) g/dl RDW 12.6 (11.0-16.0) % Plt Count 409 H (160-400) X10*3/uL MPV 11.2 (9.4-12.3) fL Immature Gran % (Auto) 0.3 (0.0-0.4) % Neut % (Auto) 46.1 (45-73) % Lymph % (Auto) 45.6 H (20-40) % Pettis % (Auto) 6.1 (2-11) % Eos % (Auto) 1.3 (0-4) % Baso % (Auto) 0.6 (0-2) % Lymph # (Auto) 4.6 (1.2-4.9) X10*3/uL Pettis # (Auto) 0.6 (0.1-1.2) X10*3/uL Eos # (Auto) 0.1 (0.0-0.4) X10*3/uL Baso # (Auto) 0.1 (0.0-0.2) X10*3/uL Abs Immat Gran (auto) 0.03 (0.00-0.03) X10*3/uL Absolute Neuts (auto) 4.7 (2.0-8.3) x10*3/uL Absolute Nucleated RBC 0.000 (0.0-0.012) X10*3/uL Nucleated RBC % (auto) 0.0 (0.0-0.2) /100WBC Sodium 141 (135-145) mmol/L Potassium 3.6 (3.3-5.1) mmol/L Chloride 113 H (96-108) mmol/L Carbon Dioxide 18 L (22-29) mmol/L Anion Gap 14 (12-20) BUN 11 (9-16) mg/dL Creatinine 0.81 (0.5-1.4) mg/dL Estim Creat Clear Calc 67.8 Estimated GFR > 60 Random Glucose 120 H (60-115) mg/dL Calcium 9.6 (8.4-10.2) mg/dL Total Bilirubin 0.4 (0.0-1.0) mg/dL Direct Bilirubin 0.1 (0.0-0.5) mg/dL AST 23 (5-31) U/L ALT < 6 (0-31) U/L Alkaline Phosphatase 121 H (39-117) U/L Troponin I High Sens < 2.7 (<3.5-17.0) ng/L Total Protein 7.2 (6.5-8.0) g/dL Albumin 4.2 (3.5-5.0) g/dL Lipase 13 (8-78) U/L Urine Color Dark Yellow Urine Appearance Clear Urine pH 5.5 (5.0-9.0) Ur Specific [place] 1.025 (1.005-1.025) Urine Protein Trace (Neg-Trace) mg/dL Urine Glucose (UA) Negative (Negative) mg/dL Urine Ketones Trace (Negative) mg/dL Urine Blood Negative (Negative) Urine Nitrite Negative (Negative) Ur Leukocyte Esterase Negative (Negative) Influenza Type A (PCR) NEGATIVE (Negative) Influenza Type B (PCR) NEGATIVE (Negative) RSV RNA Qual (PCR) NEGATIVE (Negative) SARS-CoV-2 RNA (RT-PCR) NEGATIVE (Negative) Independent Interpretation I performed an independent interpretation of an: EKG ( see course narrative) and Plain X-Ray ( see course narrative) Radiology Impression Discussion of test interpretation with radiology: I have reviewed the radiologist's reading. Radiologist Impression: Two views of the chest. COMPARISON: XR chest dated 09/28/23 at 10:45 EDT FINDINGS: Normal heart and mediastinal contours. No consolidation. No pleural effusion or pneumothorax. Mild spondylosis. IMPRESSION: 1. No consolidation. Independent Historian Clinical information obtained from an independent historian. History obtained from or confirmed by: Spouse External Record Review External record reviewed: Outpatient record Chronic Conditions Patient?s care impacted by: Other (see narrative above) Discharge Plan Discharge Clinical Impression: Gastritis Patient Disposition: Home, Self-Care Instructions: Gastritis (ED) Additional Instructions: Avoid triggers such as fatty foods, spicy foods, tomatoes, onions, coffee, tea, chocolate, and alcohol. Remaining upright after meals for 1-2 hours. Avoid eating at least 3 hours before bedtime. Try sleeping on an incline if possible. Introduce a bland diet including crackers, bananas, rice, soup, toast, and boiled vegetables. This may progress to plain baked or boiled chicken or turkey. Avoid dairy products or foods high in fat or grease. take famotidine as prescribed daily. Follow-up with gastroenterology Prescriptions: New famotidine 20 mg tablet 20 mg PO DAILY Qty: 20 0RF No Action montelukast 10 mg tablet 10 mg PO BEDTIME 90 Days Qty: 90 3RF fluticasone propion-salmeterol [Wixela Inhub] 250-50 mcg/dose blister with device 1 inh inhalation BID Qty: 60 9RF topiramate 100 mg tablet 100 mg PO BID 90 Days Qty: 180 2RF albuterol sulfate 2.5 mg /3 mL (0.083 %) solution for nebulization 2.5 mg inhalation QID PRN (Reason: shortness of breath or wheezing) Qty: 180 0RF ibuprofen 600 mg tablet 600 mg PO Q8H PRN (Reason: pain) Qty: 30 0RF brimonidine 0.2 % drops 1 drp ophthalmic (eye) Q12H rizatriptan 5 mg tablet PO famotidine [Pepcid] 20 mg tablet 20 mg PO BEDTIME Qty: 90 2RF bisacodyl [Dulcolax (bisacodyl)] 5 mg tablet,delayed release (DR/EC) 10 mg PO BEDTIME Qty: 180 4RF esomeprazole magnesium [Nexium] 40 mg capsule,delayed release(DR/EC) 40 mg PO DAILY Qty: 30 5RF albuterol sulfate 90 mcg/actuation HFA aerosol inhaler 2 inh PO Q4H PRN (Reason: bronchospasm) Qty: 8.5 0RF cholecalciferol (vitamin D3) 50 mcg (2,000 unit) capsule 50 mcg PO DAILY Qty: 90 3RF psyllium husk [Fiber (psyllium husk)] 0.52 gram capsule 1.04 g PO DAILY Qty: 60 3RF polyethylene glycol 3350 [Gavilax] 17 gram/dose powder 17 g PO DAILY PRN (Reason: constipation) Qty: 510 6RF Print Language: Divehi
[2024-10-15 14:42] LABS: MANUAL DIFF FLAG NO
[2024-10-15 14:45] LABS: Basophils Absolute Auto 0.1 X10*3/uL (0.0-0.2); Basophils Percent Auto 0.6 % (0-2); Eosinophils Absolute Auto 0.1 X10*3/uL (0.0-0.4); Eosinophils Percent Auto 1.3 % (0-4); Hematocrit 38.2 % (37.0-47.0); Hemoglobin 13.3 g/dl (12.0-16.0); Imm Gran Abs Auto 0.03 X10*3/uL (0.00-0.03); Imm Gran Pct Auto 0.3 % (0.0-0.4); Lymphocytes Absolute Auto 4.6 X10*3/uL (1.2-4.9); Lymphocytes Percent Auto 45.6 % (20-40); Mean Corpuscular HGB Conc 34.8 g/dl (31.0-35.0); Mean Corpuscular Hemoglobin 29.8 pg (27.0-33.0); Mean Corpuscular Volume 85.7 fL (80.0-98.0); Mean Platelet Volume 11.2 fL (9.4-12.3); Monocytes Absolute Auto 0.6 X10*3/uL (0.1-1.2); Monocytes Percent Auto 6.1 % (2-11); Neutrophils Absolute Auto 4.7 x10*3/uL (2.0-8.3); Neutrophils Percent Auto 46.1 % (45-73); Platelet Count 409 X10*3/uL (160-400); Red Blood Count 4.46 X10*6/uL (4.20-5.50); Red Cell Distribution Width 12.6 % (11.0-16.0); White Blood Count 10.1 X10*3/uL (4.8-10.8)
[2024-10-15 14:57] VITALS: PULSE 55
[2024-10-15 15:11] LABS: Troponin-I High Sensitivity < 2.7 ng/L (<3.5-17.0)
[2024-10-15 15:16] LABS: Alanine Aminotransferase < 6 U/L (0-31); Albumin Level 4.2 g/dL (3.5-5.0); Alkaline Phosphatase 121 U/L (39-117); Anion Gap 14 (12-20); Aspartate Amino Transferase 23 U/L (5-31); Bilirubin Direct 0.1 mg/dL (0.0-0.5); Bilirubin Total 0.4 mg/dL (0.0-1.0); Blood Urea Nitrogen 11 mg/dL (9-16); Calcium 9.6 mg/dL (8.4-10.2); Carbon Dioxide 18 mmol/L (22-29); Chloride 113 mmol/L (96-108); Creatinine Clr Calc Pharmacy 67.8; Estimated Glomerular Filt Rate > 60; Glucose Random 120 mg/dL (60-115); Lipase 13 U/L (8-78); Potassium 3.6 mmol/L (3.3-5.1); Sodium 141 mmol/L (135-145); Total Protein 7.2 g/dL (6.5-8.0)
[2024-10-15 15:23] LABS: Influenza A PCR NEGATIVE (Negative); Influenza B PCR NEGATIVE (Negative); Resp Syncy Virus RNA Qual PCR NEGATIVE (Negative); SARS COV2 PCR INHOUSE NEGATIVE (Negative)
[2024-10-15] MEDS: Lidocaine HCl Viscous 2 % 15 ML SOLUTION MUCOUS MEM (15:47)
[2024-10-15] MEDS: Magnesium Hydrox/Alum Hydrox 30 ML ORAL.SUSP PO (15:47)
[2024-10-15] MEDS: Famotidine/PF 20 MG/2 ML VIAL IVPUSH (15:47)
[2024-10-15 15:55] VITALS: BP 153/69; PULSE 53; RESP 16; TEMP 36.8; O2SAT 100
[2024-10-15 17:33] LABS: Appearance Urine Clear; Color Urine Dark Yellow; Glucose Urine UA Negative (Negative); Leukocyte Esterase Urine Negative (Negative); Nitrite Urine Negative (Negative); PH 5.5 (5.0-9.0); Specific Gravity - Urine 1.025 (1.005-1.025); Urine Blood Negative (Negative); Urine Ketones Trace mg/dL (Negative); Urine Protein Trace mg/dL (Neg-Trace)
[2024-10-15 18:13] VITALS: BP 122/64; PULSE 72; RESP 16; TEMP 36.8; O2SAT 98
== END 2024-10-15 18:16 | disposition home or self-care (01) ==
PROVIDERS: Nurse Practitioner Family; Emergency Provider Internal Medicine; PCP Internal Medicine
DX: K29.70 Gastritis, unspecified, without bleeding (principal); R07.9 Chest pain, unspecified; R10.13 Epigastric pain; I10 Essential (primary) hypertension; Z79.899 Other long term (current) drug therapy; Z03.818 Encounter for observation for suspected exposure to other biological agents ruled out
CPT/HCPCS: 0241U; 36415; 71046; 80048; 80076; 81003; 83690; 84484; 85025; 93005; 96374; 99284

== ENCOUNTER → 2024-10-15 14:20 | Outpatient (BNV) | payer OTHER, SELFPAY | PROVIDERS: Emergency Provider Internal Medicine; PCP Internal Medicine; Visit Provider Internal Medicine | DX: I45.10 Unspecified right bundle-branch block (principal); R00.1 Bradycardia, unspecified | CPT/HCPCS: 93010 ==

== ENCOUNTER → 2024-10-15 14:29 | Outpatient (BNV) | payer OTHER, SELFPAY | PROVIDERS: Emergency Provider Internal Medicine; PCP Internal Medicine; Visit Provider Radiology Diagnostic Radiology | DX: R07.9 Chest pain, unspecified (principal) | CPT/HCPCS: 71046 ==

== ENCOUNTER 2024-11-13 13:31 | Outpatient (REF) | payer OTHER, SELFPAY ==
[2024-11-13 17:13] LABS: Influenza A PCR NEGATIVE (Negative); Influenza B PCR NEGATIVE (Negative); Resp Syncy Virus RNA Qual PCR NEGATIVE (Negative); SARS COV2 PCR INHOUSE NEGATIVE (Negative)
--- OUTSIDE RECORDS SUMMARY | 2024-11-13 17:25 | XMS_ITS | Clinical Summary ---
Author Organization [employer] Address [address] [place] [address] Care Team Providers Care Food Preparation Worker Name Role Phone Unavailable Primary Care Provider [...]
== END 2024-11-13 13:32 | disposition home or self-care (01) ==
LOC: HO.LNP 13:31
PROVIDERS: PCP Internal Medicine; Visit Provider Physician Assistant
DX: R09.89 Other specified symptoms and signs involving the circulatory and respiratory systems (principal); J45.901 Unspecified asthma with (acute) exacerbation; J22 Unspecified acute lower respiratory infection
CPT/HCPCS: 0241U; 99212

== ENCOUNTER 2024-11-13 13:31 | Outpatient (AMB) | payer OTHER, SELFPAY ==
--- NOTE | 2024-11-13 14:13 | AM.OFFWIN_ITS ---
Intake Vital Signs 11/13/24 14:16 Weight 175 lb BP 120/84 Blood Pressure Location Rt brachial Position Sitting Pulse 79 Pulse Source Pulse Oximeter Temp 98.2 F Temp Source Oral Pulse Oximetry (%) 98 Oxygen Delivery Method Room Air Intake Visit Reasons: EP Asthma/coughing Intake Note: Patient here for asthma flare up and cough that started wednesday. Patient Tobacco Use Status: Never used Tobacco Allergies fluticasone [From Flonase] Allergy (Unknown, Verified 11/13/24 14:16) glaucoma suspect Penicillins [PENICILLINS] Allergy (Unknown, Verified 11/13/24 14:16) RASH Do you need a note to return to daycare/school/sports/work: No HPI HPI Comments History of Present Illness Details History - The patient is a 63-year-old female pr esenting with asthma exacerbation. 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 - The symptoms started two days ago. - History of asthma with regular inhaler use, although currently ineffective. - Utilizes Wixela and nebulizer treatmen t without symptomatic relief. - Experiencing shortness of breath, whee zing, headaches, chest tightness, and fatigue. - No fever, ear pain, or sinus pain; how ever, reports of ear congestion. - Recently her had a cough but r ecovered without antibiotics. Physical Exam General: Cooperative, healthy appearing, comfortable and no acute distress Orientation/consciousness: Patient oriented x3 Limitations: No limitations Head: Normal to inspection Ears: Hearing grossly normal bilaterally, external ears normal and TM's with fluid bilaterally, no infection Nose: Normal external nose present, Normal nares present and No nasal discharge present Face and sinus: Normal facial exam and Yes sinuses nontender Mouth: Normal oral and palatal mucosa present and moist mucous membranes Throat: Yes tonsils normal, Yes uvula midline. Posterior oropharynx erythema Eyes: Appearance normal, both eyes and all related structures Neck: Normal visual inspection Respiratory: Clear to auscultation bilaterally. Normal respiratory effort, able to speak in complete sentences, Actively coughing, no respiratory distress, not tachypneic, no tripod positioning and no use of accessory muscles Cardiovascular: Regular rate and rhythm. Normal S1 and S2 Skin: No rashes or lesions noted Neuro: Patient oriented x3 Extremities: Normal to inspection and Yes no clubbing, cyanosis or edema [facility] Medical History Hypertension Glaucoma suspect History of right bundle branch block Asthma Vitamin D deficiency Obesity (BMI 30-39.9) GERD (gastroesophageal reflux disease) Chronic radicular low back pain Migraine Anemia Surgical History History of esophagogastroduodenoscopy (EGD) Hx of colonoscopy History of lumpectomy of left breast History of cataract surgery History of section Family History Father Stroke Hypertension Mother Bladder cancer CVD (cardiovascular disease) Maternal Grandfather Heart attack Maternal Uncle Mouth cancer Paternal Aunt Brain cancer Maternal Aunt Heart attack Brother Heart attack Brother Heart attack Other Anxiety Mental health disorder Social History Household Members: Spouse and Children Housing: House Alcohol intake: never Patient Tobacco Use Status: Never used Tobacco Tobacco use type: Cigarette e-Cigarette/Vaping Use: Never Used Second Hand Smoke Exposure: No service: No Current occupational status: unemployed Current occupational exposures/hazards: No Sexual orientation: Straight/Heterosexual Gender identity: Female Cognitive needs: No Hearing needs: No Vision needs: Yes Female Reproductive History Menstrual Age of Menarche: 12 Review of Systems Const All systems reviewed & are unremarkable except as noted in HPI and below Physical Exam Vital Signs: Last Vital Signs Temp 98.2 F 11/13/24 14:16 Pulse 79 11/13/24 14:16 BP 120/84 11/13/24 14:16 Pulse Ox 98 11/13/24 14:16 Oxygen Delivery Method Room Air 11/13/24 14:16 Assessment & Plan Assessment & Plan (1) Asthma exacerbation, mild: Code(s): J45.901 - Unspecified asthma with (acute) exacerbation Plan: VSS, pt well appearing and PE unremarkable. Likely asthma exacerbation secondary to bronchitis. To manage the asthma exacerbation, prednisone has been prescribed with guidance on optimal timing due to potential insomnia. Diphenhydramine may be used at bedtime if she takes prednisone this afternoon. For acute respiratory support, I advise regular nebulizer use thrice daily with as-needed inhaler use. NyQuil is suggested if she experiences further nighttime disturbances. Testing for viral infections like influenza, COVID-19, and RSV will complete the assessment of acute causes for exacerbation. Pharmacologic treatments have been directed to her pharmacy. This comprehensive plan aims to evaluate and alleviate her respiratory distress symptoms effectively. Patient was informed and verbally consented to the use of an ambient scribe for clinic note documentation during this visit (2) Lower respiratory infection (e.g., bronchitis, pneumonia, pneumonitis, pulmonitis): Code(s): J22 - Unspecified acute lower respiratory infection Plan: as above Orders: Orders SARS-CoV2/FLU/RSV Today R09.89 - Other specified symptoms and signs involving the circulatory and respiratory systems Medications: New prednisone 40 mg (2 x 20 mg) PO QAM 10 tabs 0RF benzonatate 200 mg PO BEDTIME PRN 10 caps 0RF cough Coding Level of Care Code Est Pt Level 3 (10058) Diagnoses Asthma exacerbation, mild J45.901 Lower respiratory infection (e.g., bronchitis, pneumonia, pneumonitis, pulmonitis) J22
[2024-11-13 14:16] VITALS: BP 120/84; PULSE 79; TEMP 36.8; O2SAT 98
--- OUTSIDE RECORDS SUMMARY | 2024-11-13 16:06 | XMS_ITS | Clinical Summary ---
Author Organization [employer] Address [address] [place] [address] Care Team Providers Care Traveling Phlebotomist Name Role Phone Unavailable Primary Care Provider Unavailabl e Immunizations Name Administration Dates Next Due Moderna Covid-19 Vaccine 12+ 12/04/2020,11/07/19 21 Moderna Covid-19 Vaccine 6+ Bivalent 09/02/2022 Social [...] 12/08/1983 Cervical Cancer Screening 1992 HPV/Cotest 1992 Pneumococcal Vaccine: 50+ Years (1 of 1 - PCV) 2012 Zoster Vaccines (1 of 2) 2012 Mammogram 10/03/2020 10/03/2018 COVID-19 Vaccine (4 - 2023-2 5 season) 2024 09/02/2022, 12/04/2020, [...]
== END 2024-11-13 14:44 | disposition home or self-care (01) ==
PROVIDERS: PCP Internal Medicine; Visit Provider Physician Assistant
DX: J45.901 Unspecified asthma with (acute) exacerbation (principal); J22 Unspecified acute lower respiratory infection

== ENCOUNTER 2024-11-28 08:52 | Outpatient (REF) | payer OTHER, SELFPAY ==
[2024-11-28 09:03] LABS: MANUAL DIFF FLAG NO
--- OUTSIDE RECORDS SUMMARY | 2024-11-28 09:17 | XMS_ITS | Clinical Summary ---
Author Organization [employer] Address [address] [place] [address] [address] [place] [address] Care Team Providers Care Chief Of Surgery Name Role Phone Unavailable Primary Care Provider [...] 2) 2012 Mammogram 10/03/2020 10/03/2018 COVID-19 Vaccine ( - 2023-2 5 season) [...]
[2024-11-28 10:46] LABS: Basophils Absolute Auto 0.1 X10*3/uL (0.0-0.2); Basophils Percent Auto 0.8 % (0-2); Eosinophils Absolute Auto 0.2 X10*3/uL (0.0-0.4); Eosinophils Percent Auto 2.2 % (0-4); Hematocrit 39.4 % (37.0-47.0); Hemoglobin 12.7 g/dl (12.0-16.0); Imm Gran Abs Auto 0.03 X10*3/uL (0.00-0.03); Imm Gran Pct Auto 0.3 % (0.0-0.4); Lymphocytes Absolute Auto 2.7 X10*3/uL (1.2-4.9); Lymphocytes Percent Auto 31.2 % (20-40); Mean Corpuscular HGB Conc 32.2 g/dl (31.0-35.0); Mean Corpuscular Hemoglobin 29.2 pg (27.0-33.0); Mean Corpuscular Volume 90.6 fL (80.0-98.0); Mean Platelet Volume 12.1 fL (9.4-12.3); Monocytes Absolute Auto 0.5 X10*3/uL (0.1-1.2); Monocytes Percent Auto 5.8 % (2-11); Neutrophils Absolute Auto 5.1 x10*3/uL (2.0-8.3); Neutrophils Percent Auto 59.7 % (45-73); Platelet Count 328 X10*3/uL (160-400); Red Blood Count 4.35 X10*6/uL (4.20-5.50); Red Cell Distribution Width 12.7 % (11.0-16.0); White Blood Count 8.6 X10*3/uL (4.8-10.8)
[2024-11-28 10:54] LABS: Estimated Average Glucose 128 mg/dL; Hemoglobin A1C 146.7088 umol/L; Hemoglobin A1c % 6.1 % (<6.0); Total Hemoglobin (HGBA1C) 3378.1158 umol/L
[2024-11-28 11:40] LABS: Alanine Aminotransferase < 6 U/L (0-31); Anion Gap 12 (12-20); Aspartate Amino Transferase 21 U/L (5-31); Bilirubin Total 0.4 mg/dL (0.0-1.0); Blood Urea Nitrogen 16 mg/dL (9-16); Calcium 9.4 mg/dL (8.4-10.2); Carbon Dioxide 25 mmol/L (22-29); Chloride 111 mmol/L (96-108); Cholesterol 188 mg/dL (<200); Estimated Glomerular Filt Rate > 60; Glucose Random 103 mg/dL (60-115); HDL Cholesterol 59 mg/dL (>40); LDL Cholesterol Calculated 104 mg/dL (<100); Potassium 3.8 mmol/L (3.3-5.1); Sodium 144 mmol/L (135-145); Total Protein 6.6 g/dL (6.5-8.0); Triglycerides 126 mg/dL (<150)
[2024-11-28 11:59] LABS: Free T4 (Free Thyroxine) 1.11 ng/dL (0.71-1.85); Thyroid Stimulating Hormone 0.89 uIU/mL (0.32-4.0)
[2024-11-28 12:00] LABS: Folate 9.4 ng/mL (> or = 4.0); Vitamin B12 294 pg/mL (200-900)
[2024-11-28 12:35] LABS: Alkaline Phosphatase 102 U/L (39-117)
== END 2024-11-28 08:53 | disposition home or self-care (01) ==
LOC: HO.LAB 08:52
PROVIDERS: PCP Internal Medicine; Visit Provider Internal Medicine
DX: R73.01 Impaired fasting glucose (principal); E78.00 Pure hypercholesterolemia, unspecified
CPT/HCPCS: 36415; 80053; 80061; 82607; 82746; 83036; 84439; 84443; 85025

== ENCOUNTER 2024-12-04 12:50 | Outpatient (AMB) | payer OTHER, SELFPAY ==
[2024-12-04 12:56] VITALS: BP 128/80; PULSE 82; O2SAT 97; BMI 33.8
--- NOTE | 2024-12-04 12:56 | A.OFFPC_ITS ---
Vital Signs 12/04/24 12:56 Height 5 ft Weight 173 lb BMI 33.8 BP 128/80 Blood Pressure Location Lt brachial Position Sitting Pulse 82 Pulse Source Pulse Oximeter Pulse Oximetry (%) 97 Oxygen Delivery Method Room Air Intake Visit Reasons: IGT, Constip Allergies fluticasone [From Flonase] Allergy (Unknown, Verified 12/04/24 12:57) glaucoma suspect Penicillins [PENICILLINS] Allergy (Unknown, Verified 12/04/24 12:57) RASH Medication List - Last Reconciled 12/04/24 by Sisi Rodrigez MD albuterol sulfate 2.5 mg (3 mL) inhalation QID PRN albuterol sulfate 90 mcg/actuation 2 inhalations PO Q4H PRN bisacodyl (Dulcolax (bisacodyl)) 10 mg (2 x 5 mg) PO BEDTIME brimonidine 0.2% 1 drp ophthalmic (eye) Q12H cholecalciferol (vitamin D3) 50 mcg PO DAILY cyanocobalamin (vitamin B-12) 1,000 mcg PO DAILY esomeprazole magnesium (Nexium) 40 mg PO DAILY famotidine 20 mg PO BEDTIME fluticasone propion-salmeterol 250-50 mcg/dose (Wixela Inhub) 1 inh inhalation BID ibuprofen 600 mg PO Q8H PRN montelukast 10 mg PO BEDTIME 90 days polyethylene glycol 3350 (Gavilax) 17 grams PO DAILY PRN psyllium husk (Fiber (psyllium husk)) 1.04 grams (2 x 0.52 gram) PO DAILY rizatriptan mg PO topiramate 100 mg PO BID 90 days Tobacco use date assessed: 09/05/24 Dental Screening Dental Screen Date: 09/05/24 [facility] Medical History Hypertension Glaucoma suspect History of right bundle branch block Asthma Vitamin D deficiency Obesity (BMI 30-39.9) GERD (gastroesophageal reflux disease) Chronic radicular low back pain Migraine Anemia Surgical History History of esophagogastroduodenoscopy (EGD) Hx of colonoscopy History of lumpectomy of left breast History of cataract surgery History of section Family History Father Stroke Hypertension Mother Bladder cancer CVD (cardiovascular disease) Maternal Grandfather Heart attack Maternal Uncle Mouth cancer Paternal Aunt Brain cancer Maternal Aunt Heart attack Brother Heart attack Brother Heart attack Other Anxiety Mental health disorder Social History Household Members: Spouse and Children Housing: House Alcohol intake: never Patient Tobacco Use Status: Never used Tobacco Tobacco use type: Cigarette e-Cigarette/Vaping Use: Never Used Second Hand Smoke Exposure: No service: No Current occupational status: unemployed Current occupational exposures/hazards: No Sexual orientation: Straight/Heterosexual Gender identity: Female Cognitive needs: No Hearing needs: No Vision needs: Yes Female Reproductive History Menstrual Age of Menarche: 12 Questionnaire PHQ-9 Over the last 2 weeks, how often have you been bothered by any of the following problems? 1. Little interest or pleasure in doing things: not at all 2. Feeling down, depressed, or hopeless: not at all 3. Trouble falling or staying asleep, or sleeping too much: not at all 4. Feeling tired or having little energy: not at all 5. Poor appetite or overeating: not at all 6. Feeling bad about yourself - or that you are a failure or have let yourself or your family down: not at all 7. Trouble concentrating on things, such as reading the newspaper or watching television: not at all 8. Moving or speaking so slowly that other people could have noticed. Or the opposite - being so fidgety or restless that you have been moving around a lot more than usual: not at all 9. Thoughts that you would be better off or of hurting yourself in some way: not at all Total score: 0 Source: Developed by Drs. Stevenson Collins, Gaviota Abrams, Vincent Busby and colleagues, with an educational luis antonio from [email or web address]. Thrive Questionnaire Date Thrive assessed: 11/30/24 I am a: Patient What is your living situation today?: I have a steady place to live Within the past 12 months, did the food you bought not last and you didn't have the money to get more?: I choose not to answer this question Within the past 12 months, did you worry whether your food would run out before you got money to buy more?: Often true Do you have trouble paying for medicines?: I choose not to answer this question Do you have trouble getting transportation to medical appointments?: No Do you have trouble paying your heating and electricity bill?: I choose not to answer this question Do you have trouble taking care of your child, family member or friend?: I choose not to answer this question Do you have trouble with day-to-day activities such as bathing, preparing meals, shopping, managing finances, etc.?: I choose not to answer this question Are you currently unemployed and looking for a job?: I choose not to answer this question Are you interested in more education?: I choose not to answer this question Please select the resources that you would like help with: None Currently or been in a relationship where the following occur: I choose not to answer THRIVE Score: 1 AUDIT C Alcohol Use Questionnaire (AUDIT-C) 1. How often do you have a drink containing alcohol?: Never Total Score: 0 RIOS-7 AMB Questionnaire RIOS-7 Date RIOS - 7 assessed: 09/05/24 Feeling nervous, anxious, or on edge: 1 = Several days Not being able to stop or control worryin = Several days Worrying too much about different things: 1 = Several days Trouble relaxin = Not at all Being so restless that it is hard to sit still: 0 = Not at all Becoming easily annoyed or irritable: 0 = Not at all Feeling afraid as if something awful might happen: 1 = Several days Total RIOS-7 score (0-4 normal; 5-9 mild; 10-14 moderate; 15-21 severe): 4 Source: Developed by Drs. Stevenson Collins, Gaviota Abrams, Vincent Busby and colleagues, with an educational luis antonio from [email or web address]. Physical exam (Primary Care) Vital Signs: Last Vital Signs Pulse 82 12/04/24 12:56 BP 128/80 12/04/24 12:56 Pulse Ox 97 12/04/24 12:56 Oxygen Delivery Method Room Air 12/04/24 12:56 BMI result Body Mass Index 33.8 Tobacco/Smoking Status: Tobacco use Status Tobacco use date assessed 09/05/24 12/04/24 13:06 Patient Tobacco Use Status Never used Tobacco 12/04/24 13:06 Tobacco use type Cigarette 12/04/24 13:06 e-Cigarette/Vaping Use Never Used 12/04/24 13:06 PHQ-9: PHQ-9 Score PHQ-9: Total score 0 12/04/24 13:23 Thrive Assessment: Date of Thrive Assessment Date Thrive assessed 11/30/24 12/04/24 13:06 Currently or been in a relationship where the following occur: I choose not to answer Const General: alert; No acute distress Eyes Conjunctivae: conjunctivae normal Resp Auscultation: clear to auscultation bilaterally Cardio Rate: regular rate Rhythm: regular rhythm GI Inspection: Yes normal to inspection Extrem General: Yes normal to inspection and No edema Coding Level of Care Code Est Pt Level 4 (21648) Complex EM visit Add On G2211 Diagnoses Asthma exacerbation, mild J45.901 Impaired fasting blood sugar R73.01 Mild intermittent asthma without complication J45.20 Asthma complication type: uncomplicated Asthma persistence: intermittent Asthma severity: mild Gastroesophageal reflux disease without esophagitis K21.9 Esophagitis presence: without esophagitis Migraine without aura and without status migrainosus, not intractable G43.009 Intractability: not intractable Migraine type: without aura Status migrainosus presence: without status migrainosus Colon cancer screening Z12.11 Assessment & Plan Assessment & Plan (1) Asthma exacerbation, mild: Code(s): J45.901 - Unspecified asthma with (acute) exacerbation Category: Medical Plan: Patient on albuterol inhaler , montelukast and Wixela (2) Impaired fasting blood sugar: Code(s): R73.01 - Impaired fasting glucose Category: Medical Plan: Decrease the amount of carbohydrate intake, pasta, bread, rice and potatoes are all sugar and that is aside from all the sweet stuff, remember that fruits are good but they are Sweet also. (3) Asthma: Code(s): J45.909 - Unspecified asthma, uncomplicated Category: Medical Qualifiers: Asthma complication type: uncomplicated Asthma persistence: intermittent Asthma severity: mild Qualified Code(s): J45.20 - Mild intermittent asthma, uncomplicated Plan: Continue with the inhalers (4) GERD (gastroesophageal reflux disease): Code(s): K21.9 - Gastro-esophageal reflux disease without esophagitis Category: Medical Qualifiers: Esophagitis presence: without esophagitis Qualified Code(s): K21.9 - Gastro-esophageal reflux disease without esophagitis Plan: Avoid the foods that causes that usually spicy foods, tomato products, juices, coffee, soda and foods that your sensitive to. After eating do not lie down, allow 3-4 hours before in lie down. And keep the head of bed above 30 degrees to avoid the acid from going up. (5) Migraine: Code(s): G43.909 - Migraine, unspecified, not intractable, without status migrainosus Category: Medical Qualifiers: Intractability: not intractable Migraine type: without aura Status migrainosus presence: without status migrainosus Qualified Code(s): G43.009 - Migraine without aura, not intractable, without status migrainosus Plan: Patient is advised to eat healthy, keep well hydrated, keep active and have adequate sleep. (6) Colon cancer screening: Code(s): Z12.11 - Encounter for screening for malignant neoplasm of colon Category: Medical Plan: patient will be seeing the Gastro this week Plan History of Present Illness The patient is a 63-year-old female presenting with persistent epigastric pain and asthma exacerbation. The patient has had several episodes of epigastric pain severe enough to require emergency medical attention. On October 15, she was diagnosed with gastritis and prescribed famotidine in addition to omeprazole. The pain is central and related to food intake, causing significant distress. Factors such as certain dietary elements make the symptoms worse, despite cautious dietary habits. Her asthma exacerbation in October was linked to a weather change, and she was managed with prednisone and Tessalon. The patient uses an albuterol inhaler and Wixela daily, but has frequent symptomatic episodes, particularly outdoors due to allergen exposure. Health Maintenance - Screening colonoscopy scheduled for current year (last in May 2022) - Mammography is up to date - Most recent complete blood count and metabolic profile (November 28, 2024) are no rmal - Current hemoglobin A1c at 6.1, indicating impaired glucose tolerance - LDL cholesterol is 104, within target range - Vitamin B12 is mildly low; supplementation discussed - All other laboratory tests (electrolytes, renal function, thyroid, folic acid) are normal - Urine tests in September were negative - Vaccinations: Shingles, tetanus and pneumonia (2018) up to date Social History - Reports a reduction in coffee consumption from five to three cups per day yet experiencing persistent gastric issues. - Describes a preference for outdoor activities and gardening, though her asthma and allergies make outside exposure challenging. - Emphasized the importance of controlling coffee intake to manage GERD symptoms effectively. Review of Systems - Gastrointestinal: Reports epigastric pain with food intake. - Respiratory: Reports asthma exacerbation associated with weather changes. - General: Denies other systemic symptoms outside of those reported. Physical Exam - Gastrointestinal- No pain reported on palpation over the gallbladder area; pain localized to the central stomach region. Results - Labs: November 2024 blood work indicates hemoglobin A1c of 6.1, normal blood count, normal electrolytes, renal function; LDL cholesterol at 104; vitamin B12 low. - Urine: September test was negative. Plan We will manage the patient's ongoing epigastric pain with a continuation of famotidine alongside omeprazole while the gastroenterology consultation is pending. We will adjust her asthma medication regimen as needed, considering the current weather-related exacerbations. The importance of dietary control and reduced caffeine intake was discussed to manage her GERD more effectively. Her blood sugar levels remain stable; however, continuous monitoring is essential. A scheduled follow-up will ensure her ongoing health maintenance is aligned with her current needs. Patient was informed and verbally consented to the use of an ambient scribe for clinic note documentation during this visit. Discussion Notes I discussed with the patient the importance of managing her GERD through a bland diet, avoiding spicy foods, and reducing caffeine intake to decrease gastric acidity. We also covered asthma management, focusing on consistent medication use and avoiding known allergens. I emphasized the necessity of follow-up with a animal nursery worker, especially given her persistent symptoms and past polyp history. Additionally, the need to maintain routine diabetic monitoring and awareness of her carbohydrate intake was discussed given her impaired glucose levels. The patient is agreeable with the treatment strategies discussed. Patient Instructions - Continue taking famotidine and omeprazole as prescribed. - Monitor and reduce caffeine intake to manage GERD. - Use albuterol and Wixela inhalers as prescribed, twice daily if symptoms persist. - Follow up with the animal nursery worker as scheduled. - Maintain a bland diet, avoiding spicy foods and irritation triggers. - Monitor blood sugar and carbohydrate intake regularly. - Attend scheduled follow-up appointments. - Seek medical help if symptoms worsen or if experiencing new concerning symptoms. Medications: New cyanocobalamin (vitamin B-12) 1,000 mcg PO DAILY 30 caps 3RF E53.8 - Deficiency of other specified B group vitamins
--- OUTSIDE RECORDS SUMMARY | 2024-12-04 13:02 | XMS_ITS | Clinical Summary ---
Author Organization [facility] Address [address] [place] [address] Care Team Providers Care Chipper Operator Name Role Phone Sisi Rodrigez MD Primary Care Provider Unavailabl e Family History Medical History Relation Name Comments CA Breast Negative Hx Social History Tobacco Use Types Packs/Day Years Used Date Smoking Tobacco: Never Assessed Sex Assigned at Date Recorded Not on file Plan of Treatment Health Maintenance Due Date Last Done Comments Covid-19 Vaccine (#1) 06[birth year]09/1961 TOBACCO CHECK/ADVISE 1980 DTAP/TDAP/TD (1 - Tdap) 1981 CHOLESTEROL SCREENING 1982 CERVICAL CANCER SCREENING 12/08/1983 BASELINE HEALTH EXAM 40-64 2002 COLON CANCER SCREENING 2012 SHINGLES VACCINE (1 of 2) 2012 MAMMOGRAM 10/04/2019 10/03/2018, 09/16, 09/23/2016 BMI CHECK/ADVISE 07/19/2024 INFLUENZA (Season Ended) 2025 PNEUMOCOCCAL VACCINE FOR HIG H RISK PATIENTS (#1) 12/08/2027 Care Teams Chipper Operator Relationship Specialty Start Date End Date Sisi Rodrigez MD PCP - General Internal Medicine 09/10/16
--- OUTSIDE RECORDS SUMMARY | 2024-12-04 13:02 | XMS_ITS | Encounter Summary ---
Author Organization [facility] Address [address] [place] [address] Care Team Providers Care Band Director Name Role Phone Sisi Rodrigez MD Primary Care Provider Unavailabl e Encounter Details Date Type Department Care Team Description 09/25/2016 Release of Information Medical Records [address] [place] [id number] Abstract, Provider Social History Tobacco Use Types Packs/Day Years Used Date Smoking Tobacco: Never Assessed Sex Assigned at Date Recorded Not on file documented as of this encounter Plan of Treatment Not on file documented as of this encounter Visit Diagnoses Not on filedocumented in this encounter Care Teams Band Director Relationship Specialty Start Date End Date Sisi Rodrigez MD PCP - General Internal Medicine 09/10/16 documented as of this encounter
--- OUTSIDE RECORDS SUMMARY | 2024-12-04 13:02 | XMS_ITS | Clinical Summary ---
Author Organization [facility] Address [address] [place] [address] [address] [place] [address] Care Team Providers Care Director Of Channel Marketing Name Role Phone Unavailable Primary Care Provider Unavailabl e Immunizations Immunization Administration Dates Next Due Moderna Covid-19 Vaccine [...] patient's age to complete this topic Meningococcal B Vaccine Aged Out No l onger eligible based on patient's age to complete [...]
== END 2024-12-04 13:38 | disposition home or self-care (01) ==
LOC: HO.HMCH 12:51
PROVIDERS: PCP Internal Medicine; Visit Provider Internal Medicine
DX: J45.901 Unspecified asthma with (acute) exacerbation (principal); R73.01 Impaired fasting glucose; J45.20 Mild intermittent asthma, uncomplicated; K21.9 Gastro-esophageal reflux disease without esophagitis; G43.009 Migraine without aura, not intractable, without status migrainosus; Z12.11 Encounter for screening for malignant neoplasm of colon

== ENCOUNTER → 2024-12-04 12:50 | Outpatient (BNVA) | payer OTHER, SELFPAY | PROVIDERS: PCP Internal Medicine; Visit Provider Internal Medicine | DX: J45.21 Mild intermittent asthma with (acute) exacerbation (principal); R73.01 Impaired fasting glucose; K21.9 Gastro-esophageal reflux disease without esophagitis; G43.009 Migraine without aura, not intractable, without status migrainosus; Z79.899 Other long term (current) drug therapy | CPT/HCPCS: 99212 ==

== ENCOUNTER 2024-12-06 12:49 | Outpatient (AMB) | payer OTHER, SELFPAY ==
--- NOTE | 2024-12-06 12:51 | A.OFFVIS_ITS ---
Vital Signs 12/06/24 13:26 Height 5 ft Weight 175 lb BMI 34.2 BP 136/68 Blood Pressure Location Rt brachial Position Sitting Pulse 72 Pulse Source Pulse Oximeter Pulse Oximetry (%) 100 Oxygen Delivery Method Room Air Intake Visit Reasons: 3 mos FUV. Pre op - Discuss colo/egd. Intake Note: ESTABLISHED PATIENT for mgmt of GERD. Last procedure w/ Dr. Lang 2021. CC; C.O. persistence of GERD, epigastric pain despite current tx. Pt reports that she has been to both UC and ED recently per the exacerbation of her pain. Pt denies any additional concerns at this time. Manager Heart Failure Required: Yes Manager Heart Failure Services: Manager Heart Failure Present Manager Heart Failure Name: [id number] Information Interpreted: clinical only Accompanied by: Self / Same As Patient Allergies fluticasone [From Flonase] Allergy (Unknown, Verified 12/06/24 13:25) glaucoma suspect Penicillins [PENICILLINS] Allergy (Unknown, Verified 12/06/24 13:25) RASH HPI HPI 3 mos FUV. Pre op - Discuss colo/egd.: Details: LAST VISIT: Constipation GERD (gastroesophageal reflux disease) IBS (irritable bowel syndrome) Postprandial epigastric pain Epigastric burning sensation Plan Patient reports epigastric postprandial burning. Patient reports that does not matter what she eats sometimes even drinking water will make her feel like that. Occasional postprandial abdominal bloating. Moves her bowels better now that she takes Dulcolax. Patient has bowel movements daily. Will change pantoprazole to Nexium. Patient was encouraged to avoid dietary triggers and late night snacking. Staying upright for minimum hours after meals discussed with her. Patient will be due to go for colonoscopy May of this year. Will return in 3 months to re-evaluate her reflux and epigastric pain/burning. Patient is agreeable to this plan and verbalizes understanding of instructions. She was given the opportunity to ask questions and all questions answered. ? Thank you for allowing me to participate in her care Medications New esomeprazole magnesium (Nexium) 40 mg PO DAILY 30 caps 5RF K21.9 Discontinued pantoprazole take one tablet half an hour before breakfast Discontinued Reason: Doctor's Order 40 mg PO DAILY 90 tabs 2RF K21.9 TODAY'S VISIT Patient is here today for follow-up. Patient reports that she was seen in the ER in September for epigastric pain. Patient had normal labs. No leukocytosis, no pancreatitis. Patient was given GI cocktail with effect, script for famotidine. Currently patient reports that she still has occasional epigastric pain postprandially. Patient denies any nausea or vomiting. Denies any dyspepsia, dysphagia or odynophagia. Reports that she is moving her bowels well without any issues. Patient denies melena, hematochezia, unintentional weight loss or ribbon like stools. Denies any issues with anesthesia in the past. Denies any family history of CRC. Patient is not on any anticoagulation medication. [facility] Medical History Hypertension Glaucoma suspect History of right bundle branch block Asthma Vitamin D deficiency Obesity (BMI 30-39.9) GERD (gastroesophageal reflux disease) Chronic radicular low back pain Migraine Anemia Surgical History History of esophagogastroduodenoscopy (EGD) Hx of colonoscopy History of lumpectomy of left breast History of cataract surgery History of section Family History Father Stroke Hypertension Mother Bladder cancer CVD (cardiovascular disease) Maternal Grandfather Heart attack Maternal Uncle Mouth cancer Paternal Aunt Brain cancer Maternal Aunt Heart attack Brother Heart attack Brother Heart attack Other Anxiety Mental health disorder Social History Household Members: Spouse and Children Housing: House Alcohol intake: never Patient Tobacco Use Status: Never used Tobacco Tobacco use type: Cigarette e-Cigarette/Vaping Use: Never Used Second Hand Smoke Exposure: No service: No Current occupational status: unemployed Current occupational exposures/hazards: No Sexual orientation: Straight/Heterosexual Gender identity: Female Cognitive needs: No Hearing needs: No Vision needs: Yes Female Reproductive History Menstrual Age of Menarche: 12 Review of Systems Const Denies weight gain and Denies weight loss ENT Reports no additional complaints, Denies dysphagia and Denies odynophagia Card Reports no additional complaints Resp Reports no additional complaints GI Reports abdominal pain (Burning like pain in the middle of her abdomen), Denies belching, Denies melena, Denies bloating, Denies change in bowel habits, Denies dysphagia, Denies excessive flatus, Denies dyspepsia, Denies heartburn, Denies diarrhea, Denies loose stools, Denies nausea, Denies odynophagia and Denies vomiting Musc Reports no additional complaints Neuro Reports no additional complaints Psych Reports no additional complaints Endo Reports no additional complaints Physical Exam Vital Signs: Last Vital Signs Pulse 72 12/06/24 13:26 BP 136/68 12/06/24 13:26 Pulse Ox 100 12/06/24 13:26 Oxygen Delivery Method Room Air 12/06/24 13:26 BMI result Body Mass Index 34.2 Const General: healthy appearing and no acute distress Nutritional Appearance: obese Orientation/consciousness: patient oriented x3 Resp Effort & Inspection: normal respiratory effort, able to speak in complete sentences, no tracheal deviation and symmetric chest movement Auscultation: clear to auscultation bilaterally Cardio Rate: regular rate GI Inspection: Yes normal to inspection, No distended and Yes obesity Palpation (GI): Soft to palpation, not firm, nontender and No hepatosplenomegaly present Auscultation: normal bowel sounds General: Yes no CVA tenderness Back/Spine/Pelvis Back: no CVA tenderness Skin General skin exam: elasticity normal, turgor normal and dry skin Neuro General: patient oriented x3 Psych Appearance: grossly normal Mental Status: mental status grossly normal Assessment & Plan Assessment & Plan (1) Colon cancer screening: Code(s): Z12.11 - Encounter for screening for malignant neoplasm of colon Category: Medical (2) Fatty liver: Code(s): K76.0 - Fatty (change of) liver, not elsewhere classified Category: Medical (3) RUQ abdominal pain: Code(s): R10.11 - Right upper quadrant pain Category: Medical (4) Constipation: Code(s): K59.00 - Constipation, unspecified Category: Medical Qualifiers: Constipation type: chronic idiopathic constipation Qualified Code(s): K59.04 - Chronic idiopathic constipation (5) GERD (gastroesophageal reflux disease): Code(s): K21.9 - Gastro-esophageal reflux disease without esophagitis Category: Medical Qualifiers: Esophagitis presence: without esophagitis Qualified Code(s): K21.9 - Gastro-esophageal reflux disease without esophagitis (6) IBS (irritable bowel syndrome): Code(s): K58.9 - Irritable bowel syndrome, unspecified Qualifiers: Irritable bowel syndrome type: without diarrhea Qualified Code(s): K58.9 - Irritable bowel syndrome, unspecified (7) Postprandial epigastric pain: Code(s): R10.13 - Epigastric pain (8) Epigastric burning sensation: Code(s): R10.13 - Epigastric pain Plan Patient will take sucralfate at bedtime. Continue taking Nexium. Avoid dietary triggers and late night snacking. Staying upright for minimum 3 hours after meals discussed with patient. Patient will be sent for upper endoscopy to rule out gastritis, duodenitis, gastric or peptic ulcer, H pylori, esophagitis. Patient will be sent for colonoscopy as well What to expect before during and after procedure discussed with patient. Stressed the importance of good bowel prep and clear liquid diet day before procedure. I will see patient after the procedure, sooner on as needed basis. She is agreeable to this plan and verbalizes understanding of instructions. She was given the opportunity to ask questions and all questions answered. Thank you for allowing me to participate in her care Medications: New sucralfate 1 g PO BEDTIME 30 tabs 4RF R19.7 - Diarrhea, unspecified polyethylene glycol 3350 (Miralax) As directed by gastroenterology department at [facility] 238 grams PO ONCE 238 grams 0RF Z12.11 - Encounter for screening for malignant neoplasm of colon Discontinued famotidine Discontinued Reason: Doctor's Order 20 mg PO BEDTIME 90 tabs 2RF K21.9 - Gastro-esophageal reflux disease without esophagitis Coding Level of Care Code Est Pt Level 4 (30939) Complex EM visit Add On G2211 Diagnoses Colon cancer screening Z12.11 Fatty liver K76.0 RUQ abdominal pain R10.11 Chronic idiopathic constipation K59.04 Constipation type: chronic idiopathic constipation Gastroesophageal reflux disease without esophagitis K21.9 Esophagitis presence: without esophagitis Irritable bowel syndrome without diarrhea K58.9 Irritable bowel syndrome type: without diarrhea Postprandial epigastric pain R10.13 Epigastric burning sensation R10.13 Time Spent (min) 40 Comment 25 minutes spent with patient and additional 15 minutes spent reviewing her records
[2024-12-06 13:26] VITALS: BP 136/68; PULSE 72; O2SAT 100; BMI 34.2
--- OUTSIDE RECORDS SUMMARY | 2024-12-06 13:29 | XMS_ITS | Clinical Summary ---
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
== END 2024-12-06 13:50 | disposition home or self-care (01) ==
LOC: HO.HGI 12:49
PROVIDERS: PCP Internal Medicine; Visit Provider Nurse Practitioner Family
DX: Z01.818 Encounter for other preprocedural examination (principal); Z12.11 Encounter for screening for malignant neoplasm of colon; K76.0 Fatty (change of) liver, not elsewhere classified; R10.11 Right upper quadrant pain; K21.9 Gastro-esophageal reflux disease without esophagitis; K58.1 Irritable bowel syndrome with constipation; R10.13 Epigastric pain
CPT/HCPCS: 99213; G2211

== ENCOUNTER → 2024-12-06 12:49 | Outpatient (BNVA) | payer OTHER, SELFPAY | PROVIDERS: PCP Internal Medicine; Visit Provider Nurse Practitioner Family | DX: Z12.11 Encounter for screening for malignant neoplasm of colon (principal); K59.04 Chronic idiopathic constipation; K21.9 Gastro-esophageal reflux disease without esophagitis; K58.9 Irritable bowel syndrome, unspecified; K76.0 Fatty (change of) liver, not elsewhere classified; R10.11 Right upper quadrant pain; R10.13 Epigastric pain | CPT/HCPCS: 99212 ==

== ENCOUNTER 2025-04-11 12:53 | Outpatient (AMB) | payer OTHER, SELFPAY ==
--- NOTE | 2025-04-11 13:00 | A.OFFPC_ITS ---
Vital Signs 04/11/25 13:01 Height 5 ft Weight 175 lb BMI 34.2 BP 118/72 Blood Pressure Location Lt brachial Position Sitting Pulse 70 Pulse Source Pulse Oximeter Pulse Oximetry (%) 98 Oxygen Delivery Method Room Air Intake Visit Reasons: gerd Allergies fluticasone (From Flonase) Allergy (Unknown, Verified 04/11/25 13:02) glaucoma suspect Penicillins (PENICILLINS) Allergy (Unknown, Verified 04/11/25 13:02) RASH Medication List - Last Reconciled 04/11/25 by Sisi Rodrigez MD albuterol sulfate 2.5 mg (3 mL) inhalation QID PRN albuterol sulfate 90 mcg/actuation 2 inhalations PO Q4H PRN bisacodyl (Dulcolax (bisacodyl)) 10 mg (2 x 5 mg) PO BEDTIME brimonidine 0.2% 1 drp ophthalmic (eye) Q12H cholecalciferol (vitamin D3) 50 mcg PO DAILY cyanocobalamin (vitamin B-12) 1,000 mcg PO DAILY esomeprazole magnesium 40 mg PO DAILY fluticasone propion-salmeterol 250-50 mcg/dose (Wixela Inhub) 1 inh inhalation BID ibuprofen 600 mg PO Q8H PRN montelukast 10 mg PO BEDTIME 90 days polyethylene glycol 3350 (Miralax) 238 grams PO ONCE psyllium husk (Fiber (psyllium husk)) 1.04 grams (2 x 0.52 gram) PO DAILY rizatriptan mg PO sucralfate 1 g PO BEDTIME topiramate 100 mg PO BID 90 days Tobacco use date assessed: 09/05/24 Dental Screening Dental Screen Date: 09/05/24 [facility] Medical History Hypertension Glaucoma suspect History of right bundle branch block Asthma Vitamin D deficiency Obesity (BMI 30-39.9) GERD (gastroesophageal reflux disease) Chronic radicular low back pain Migraine Anemia Surgical History History of esophagogastroduodenoscopy (EGD) Hx of colonoscopy History of lumpectomy of left breast History of cataract surgery History of section Family History Father Stroke Hypertension Mother Bladder cancer CVD (cardiovascular disease) Maternal Grandfather Heart attack Maternal Uncle Mouth cancer Paternal Aunt Brain cancer Maternal Aunt Heart attack Brother Heart attack Brother Heart attack Other Anxiety Mental health disorder Social History Household Members: Spouse and Children Housing: House Alcohol intake: never Patient Tobacco Use Status: Never used Tobacco Tobacco use type: Cigarette e-Cigarette/Vaping Use: Never Used Second Hand Smoke Exposure: No service: No Current occupational status: unemployed Current occupational exposures/hazards: No Sexual orientation: Straight/Heterosexual Gender identity: Female Cognitive needs: No Hearing needs: No Vision needs: Yes Female Reproductive History Menstrual Age of Menarche: 12 Questionnaire Thrive Questionnaire Date Thrive assessed: 11/30/24 I am a: Patient What is your living situation today?: I have a steady place to live Within the past 12 months, did the food you bought not last and you didn't have the money to get more?: I choose not to answer this question Within the past 12 months, did you worry whether your food would run out before you got money to buy more?: Often true Do you have trouble paying for medicines?: I choose not to answer this question Do you have trouble getting transportation to medical appointments?: No Do you have trouble paying your heating and electricity bill?: I choose not to answer this question Do you have trouble taking care of your child, family member or friend?: I choose not to answer this question Do you have trouble with day-to-day activities such as bathing, preparing meals, shopping, managing finances, etc.?: I choose not to answer this question Are you currently unemployed and looking for a job?: I choose not to answer this question Are you interested in more education?: I choose not to answer this question Please select the resources that you would like help with: None Currently or been in a relationship where the following occur: I choose not to answer THRIVE Score: 1 RIOS-7 AMB Questionnaire RIOS-7 Date RIOS - 7 assessed: 09/05/24 Source: Developed by Drs. Stevenson Collins, Gaviota Abrams, Vincent Busby and colleagues, with an educational luis antonio from [employer]. Physical exam (Primary Care) Vital Signs: Last Vital Signs Pulse 70 04/11/25 13:01 BP 118/72 04/11/25 13:01 Pulse Ox 98 04/11/25 13:01 Oxygen Delivery Method Room Air 04/11/25 13:01 BMI result Body Mass Index 34.2 Tobacco/Smoking Status: Tobacco use Status Tobacco use date assessed 09/05/24 04/11/25 13:02 Patient Tobacco Use Status Never used Tobacco 04/11/25 13:02 Tobacco use type Cigarette 04/11/25 13:02 e-Cigarette/Vaping Use Never Used 04/11/25 13:02 Thrive Assessment: Date of Thrive Assessment Date Thrive assessed 11/30/24 04/11/25 13:02 Currently or been in a relationship where the following occur: I choose not to answer Const General: alert; No acute distress Eyes Conjunctivae: conjunctivae normal Resp Auscultation: clear to auscultation bilaterally Cardio Rate: regular rate Rhythm: regular rhythm GI Inspection: Yes normal to inspection Extrem General: Yes normal to inspection and No edema Coding Level of Care Code Est Pt Level 4 (51768) Complex EM visit Add On G2211 Diagnoses Impaired fasting blood sugar R73.01 Obesity (BMI 30-39.9) E66.9 Gastroesophageal reflux disease without esophagitis K21.9 Esophagitis presence: without esophagitis Fatty liver K76.0 Migraine without aura and without status migrainosus, not intractable G43.009 Intractability: not intractable Migraine type: without aura Status migrainosus presence: without status migrainosus Generalized anxiety disorder F41.1 Chronic pain of both knees M25.561; M25.562; G89.29 Chronicity: chronic Leg cramps R25.2 Assessment & Plan Assessment & Plan (1) Impaired fasting blood sugar: Code(s): R73.01 - Impaired fasting glucose Category: Medical Plan: Decrease the amount of carbohydrate intake, pasta, bread, rice and potatoes are all sugar and that is aside from all the sweet stuff, remember that fruits are good but they are Sweet also. Will continue to monitor (2) Obesity (BMI 30-39.9): Comment: With hx of IFG and constipation Code(s): E66.9 - Obesity, unspecified Category: Medical Plan: Diet and exercise (3) GERD (gastroesophageal reflux disease): Code(s): K21.9 - Gastro-esophageal reflux disease without esophagitis Category: Medical Qualifiers: Esophagitis presence: without esophagitis Qualified Code(s): K21.9 - Gastro-esophageal reflux disease without esophagitis Plan: Avoid the foods that causes that usually spicy foods, tomato products, juices, coffee, soda and foods that your sensitive to. After eating do not lie down, allow 3-4 hours before in lie down. And keep the head of bed above 30 degrees to avoid the acid from going up. On Nexium (4) Fatty liver: Code(s): K76.0 - Fatty (change of) liver, not elsewhere classified Category: Medical Plan: Low-fat diet and exercise try to lose the weight (5) Migraine: Code(s): G43.909 - Migraine, unspecified, not intractable, without status migrainosus Category: Medical Qualifiers: Intractability: not intractable Migraine type: without aura Status migrainosus presence: without status migrainosus Qualified Code(s): G43.009 - Migraine without aura, not intractable, without status migrainosus Plan: Patient is advised to eat healthy, keep well hydrated, keep active and have adequate sleep. Patient is on Topamax (6) Generalized anxiety disorder: Code(s): F41.1 - Generalized anxiety disorder Category: Medical Plan: Continue with present medication (7) Knee pain, bilateral: Code(s): M25.561 - Pain in right knee; M25.562 - Pain in left knee Category: Medical Qualifiers: Chronicity: chronic Qualified Code(s): M25.561 - Pain in right knee; M25.562 - Pain in left knee; G89.29 - Other chronic pain (8) Leg cramps: Code(s): R25.2 - Cramp and spasm Category: Medical Plan History of Present Illness The patient is a 64-year-old female presenting for a follow-up visit. The patient has a history of obesity, migraines, gastroesophageal reflux disease (GERD), and asthma. She also has impaired glucose tolerance, with a blood sugar level of 103 mg/dL and a hemoglobin A1c of 6.1% as of November 2024. Her liver function tests are normal, and her cholesterol levels show an LDL of 104 mg/dL. The patient experiences generalized anxiety disorder and hepatic steatosis. She has been managing constipation and irritable bowel syndrome with Nexium and chlorophyte. The patient reports knee pain, primarily in the right knee, which has now progressed to both knees. She experiences numbness and cramps, particularly at night, and has been advised to undergo an x-ray and orthopedic consultation. The patient is up to date with her mammogram, but her colonoscopy is due this year. She has a history of glaucoma, requiring regular eye exams due to high intraocular pressure. Health Maintenance - Colonoscopy due this year - Mammogram up to date - Regular eye exams for glaucoma management Social History - Exercise: Patient is advised to maintain physical activity for bowel movement management. Review of Systems - Gastrointestinal: Reports constipation, managed with psyllium and MiraLAX. - Musculoskeletal: Reports knee pain, numbness, and cramps, particularly at night. - Respiratory: Reports using Wixela and Montelukast for asthma management. Physical Exam - Circulatory: Pulses palpable, good circulation noted. Results - Labs: Normal blood count, normal electrolytes, renal function normal, blood sugar 103 mg/dL, hemoglobin A1c 6.1%, liver function normal, LDL cholesterol 104 mg/dL, mildly low vitamin B12, normal folic acid and thyroid function. Plan Patient was informed and verbally consented to the use of an ambient scribe for clinic note documentation during this visit. 1. Obesity The patient is advised to continue with diet and exercise to manage weight. 2. Gastroesophageal Reflux Disease (Gerd) The patient is advised to continue taking Nexium and maintain a low-fat diet. 3. Impaired Glucose Tolerance The patient is advised to monitor blood sugar levels and maintain diet and exercise. 4. Knee Pain The patient is advised to undergo an x-ray and consult with orthopedics for further evaluation. 5. Glaucoma The patient is advised to continue regular eye exams to monitor intraocular pressure. Discussion Notes During the visit, we discussed the importance of maintaining a healthy lifestyle to manage obesity and impaired glucose tolerance. The patient was advised to continue Nexium for GERD and to follow a low-fat diet. We also discussed the need for an x-ray and orthopedic consultation for knee pain. Regular eye exams were emphasized for glaucoma management. Patient Instructions - Continue with diet and exercise to manage weight. - Take Nexium as prescribed and maintain a low-fat diet for GERD. - Monitor blood sugar levels regularly and maintain a healthy diet and exercise routine. - Schedule an x-ray and follow up with orthopedics for knee pain evaluation. - Continue regular eye exams to monitor glaucoma. Orders: Orders Complete Blood Count Auto Diff Today R73.01 - Impaired fasting glucose Comprehensive Met. Panel Today R73.01 - Impaired fasting glucose Thyroid Stimulating Hormone Today R73.01 - Impaired fasting glucose Hemoglobin A1c Today R73.01 - Impaired fasting glucose XR Knee Jose 1or 2V Today G89.29 - Other chronic pain, M25.561 - Pain in right knee, M25.562 - Pain in left knee Free T4 (Free Thyroxine) Today R73.01 - Impaired fasting glucose Magnesium Today G89.29 - Other chronic pain, M25.561 - Pain in right knee, M25.562 - Pain in left knee Referrals Orthopedics Referral G89.29 - Other chronic pain, M25.561 - Pain in right knee, M25.562 - Pain in left knee Medications: New tizanidine 4 mg PO BEDTIME PRN 30 tabs 0RF muscle spasticity R25.2 - Cramp and spasm
[2025-04-11 13:01] VITALS: BP 118/72; PULSE 70; O2SAT 98; BMI 34.2
--- OUTSIDE RECORDS SUMMARY | 2025-04-11 15:20 | XMS_ITS | Clinical Summary ---
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
== END 2025-04-11 13:29 | disposition home or self-care (01) ==
LOC: HO.HMCH 12:54
PROVIDERS: PCP Internal Medicine; Visit Provider Internal Medicine
DX: R73.01 Impaired fasting glucose (principal); E66.9 Obesity, unspecified; Z68.34 Body mass index [BMI] 34.0-34.9, adult; K21.9 Gastro-esophageal reflux disease without esophagitis; K76.0 Fatty (change of) liver, not elsewhere classified; G43.009 Migraine without aura, not intractable, without status migrainosus; F41.1 Generalized anxiety disorder; M25.561 Pain in right knee; M25.562 Pain in left knee; G89.29 Other chronic pain; R25.2 Cramp and spasm

== ENCOUNTER → 2025-04-11 12:53 | Outpatient (BNVA) | payer OTHER, SELFPAY | PROVIDERS: PCP Internal Medicine; Visit Provider Internal Medicine | DX: K21.9 Gastro-esophageal reflux disease without esophagitis (principal); R73.01 Impaired fasting glucose; K76.0 Fatty (change of) liver, not elsewhere classified; G43.009 Migraine without aura, not intractable, without status migrainosus; F41.1 Generalized anxiety disorder; M25.561 Pain in right knee; M25.562 Pain in left knee; G89.29 Other chronic pain; R25.2 Cramp and spasm; E66.9 Obesity, unspecified; J45.909 Unspecified asthma, uncomplicated; K58.1 Irritable bowel syndrome with constipation; Z68.34 Body mass index [BMI] 34.0-34.9, adult | CPT/HCPCS: 99212 ==

== ENCOUNTER 2025-04-19 11:17 | Outpatient (AMB) | payer OTHER, SELFPAY ==
--- NOTE | 2025-04-19 11:20 | A.OFFVIS_ITS ---
Vital Signs 04/19/25 11:21 Height 5 ft Weight 175 lb BMI 34.2 BP 132/66 Blood Pressure Location Rt brachial Position Sitting Pulse 72 Pulse Source Pulse Oximeter Pulse Oximetry (%) 100 Oxygen Delivery Method Room Air Intake Visit Reasons: f/u Intake Note: ESTABLISHED PATIENT for GERD + CIC mgmt. Eval med response (sucralfate + nexium). Discuss double procedure. Chief Complaint; C.O. persistence of chronic sx despite current therapies. Pt states that her sx are minimally improved but far from resolved. Traffic Sign Supervisor Required: Yes Traffic Sign Supervisor Services: Traffic Sign Supervisor Present Traffic Sign Supervisor Name: Elo ([facility])Arlen [id number] Information Interpreted: clinical only Accompanied by: Self / Same As Patient Allergies fluticasone (From Flonase) Allergy (Unknown, Verified 04/19/25 11:38) glaucoma suspect Penicillins (PENICILLINS) Allergy (Unknown, Verified 04/19/25 11:38) RASH HPI HPI f/u: Details: LAST VISIT: Colon cancer screening Fatty liver RUQ abdominal pain Constipation GERD (gastroesophageal reflux disease) IBS (irritable bowel syndrome) Postprandial epigastric pain Epigastric burning sensation Plan Patient will take sucralfate at bedtime. Continue taking Nexium. Avoid dietary triggers and late night snacking. Staying upright for minimum 3 hours after meals discussed with patient. Patient will be sent for upper endoscopy to rule out gastritis, duodenitis, gastric or peptic ulcer, H pylori, esophagitis. Patient will be sent for colonoscopy as well What to expect before during and after procedure discussed with patient. Stressed the importance of good bowel prep and clear liquid diet day before procedure. I will see patient after the procedure, sooner on as needed basis. She is agreeable to this plan and verbalizes understanding of instructions. She was given the opportunity to ask questions and all questions answered. ? Thank you for allowing me to participate in her care New sucralfate 1 g PO BEDTIME 30 tabs 4RF R19.7 polyethylene glycol 3350 (Miralax) As directed by gastroenterology department at [facility] 238 grams PO ONCE 238 grams 0RF Z12.11 Discontinued famotidine Discontinued Reason: Doctor's Order 20 mg PO BEDTIME 90 tabs 2RF TODAY'S VISIT: Patient is here today for follow-up in to discuss going for upper endoscopy and colonoscopy. Patient continues to have epigastric pain despite taking Nexium.. Patient reports that her symptoms are worse when she is constipated. Denies any nausea or vomiting. Reports abdominal bloating food patient reports that she continues to be constipated despite taking Dulcolax 2 tabs every. Patient reports that sometimes she has take extra tablets in order to have a bowel movement. Last BM was yesterday very small a. Patient denies melena, hematochezia, unintentional weight loss or ribbon like stools. Denies any other GI concerning symptoms. Patient denies any cardiac or respiratory symptoms. No issues with anesthesia in the past. [facility] Medical History Hypertension Glaucoma suspect History of right bundle branch block Asthma Vitamin D deficiency Obesity (BMI 30-39.9) GERD (gastroesophageal reflux disease) Chronic radicular low back pain Migraine Anemia Surgical History History of esophagogastroduodenoscopy (EGD) Hx of colonoscopy History of lumpectomy of left breast History of cataract surgery History of section Family History Father Stroke Hypertension Mother Bladder cancer CVD (cardiovascular disease) Maternal Grandfather Heart attack Maternal Uncle Mouth cancer Paternal Aunt Brain cancer Maternal Aunt Heart attack Brother Heart attack Brother Heart attack Other Anxiety Mental health disorder Social History Household Members: Spouse and Children Housing: House Alcohol intake: never Patient Tobacco Use Status: Never used Tobacco Tobacco use type: Cigarette e-Cigarette/Vaping Use: Never Used Second Hand Smoke Exposure: No service: No Current occupational status: unemployed Current occupational exposures/hazards: No Sexual orientation: Straight/Heterosexual Gender identity: Female Cognitive needs: No Hearing needs: No Vision needs: Yes Female Reproductive History Menstrual Age of Menarche: 12 Review of Systems Const Denies weight gain and Denies weight loss ENT Reports no additional complaints, Denies dysphagia and Denies odynophagia Card Reports no additional complaints Resp Reports no additional complaints GI Reports abdominal pain (Burning like pain in the middle of her abdomen), Denies belching, Denies melena, Reports bloating, Denies change in bowel habits, Reports constipation, Denies dysphagia, Denies excessive flatus, Denies dyspepsia, Reports heartburn, Denies diarrhea, Denies loose stools, Denies nausea, Denies odynophagia and Denies vomiting Reports no additional complaints Musc Reports no additional complaints Neuro Reports no additional complaints Psych Reports no additional complaints Endo Reports no additional complaints Physical Exam Vital Signs: Last Vital Signs Pulse 72 04/19/25 11:21 BP 132/66 04/19/25 11:21 Pulse Ox 100 04/19/25 11:21 Oxygen Delivery Method Room Air 04/19/25 11:21 BMI result Body Mass Index 34.2 Const General: healthy appearing and no acute distress Nutritional Appearance: obese Orientation/consciousness: patient oriented x3 Resp Effort & Inspection: normal respiratory effort, able to speak in complete sentences, no tracheal deviation and symmetric chest movement Auscultation: clear to auscultation bilaterally Cardio Rate: regular rate GI Inspection: Yes normal to inspection, No distended and Yes obesity Palpation (GI): Soft to palpation, not firm, nontender and No hepatosplenomegaly present Auscultation: normal bowel sounds General: Yes no CVA tenderness Back/Spine/Pelvis Back: no CVA tenderness Skin General skin exam: elasticity normal, turgor normal and dry skin Neuro General: patient oriented x3 Psych Appearance: grossly normal Mental Status: mental status grossly normal Assessment & Plan Assessment & Plan (1) RUQ abdominal pain: Code(s): R10.11 - Right upper quadrant pain Category: Medical (2) Colon cancer screening: Code(s): Z12.11 - Encounter for screening for malignant neoplasm of colon Category: Medical (3) Constipation: Code(s): K59.00 - Constipation, unspecified Category: Medical Qualifiers: Constipation type: chronic idiopathic constipation Qualified Code(s): K59.04 - Chronic idiopathic constipation (4) Fatty liver: Code(s): K76.0 - Fatty (change of) liver, not elsewhere classified Category: Medical (5) GERD (gastroesophageal reflux disease): Code(s): K21.9 - Gastro-esophageal reflux disease without esophagitis Category: Medical Qualifiers: Esophagitis presence: without esophagitis Qualified Code(s): K21.9 - Gastro-esophageal reflux disease without esophagitis Plan Continue Nexium daily. Avoid dietary triggers and late night snacking. Staying upright for minimal 3 hours after meals discussed with patient mobile home set up person patient will be sent for upper endoscopy. She continues to have epigastric pain despite being on PPI. Patient continues to feel constipated. Patient will be started on Linzess 145 mcg daily. Patient can take Dulcolax as needed. Patient will call for colonoscopy as well. What to expect before during and after procedure discussed with patient. Stressed the importance of good bowel prep and clear liquid diet after the procedure. Patient is agreeable to current plan of care and verbalizes understanding of instructions. She was given the opportunity to ask questions and all questions answered. Thank for allowing me to participate in her care Orders: Referrals GI Procedure Notification Z12.11 - Encounter for screening for malignant neoplasm of colon Medications: New linaclotide (Linzess) 145 mcg PO DAILY 30 caps 4RF K59.04 - Chronic idiopathic constipation polyethylene glycol 3350 (Miralax) As directed by gastroenterology department at [facility] 238 grams PO ONCE 238 grams 0RF Z12.11 - Encounter for screening for malignant neoplasm of colon Refilled sucralfate 1 g PO BEDTIME 30 tabs 4RF R19.7 - Diarrhea, unspecified esomeprazole magnesium 40 mg PO DAILY 90 caps 1RF K21.9 - Gastro-esophageal reflux disease without esophagitis Coding Level of Care Code Est Pt Level 4 (94583) Complex EM visit Add On G2211 Diagnoses RUQ abdominal pain R10.11 Colon cancer screening Z12.11 Chronic idiopathic constipation K59.04 Constipation type: chronic idiopathic constipation Fatty liver K76.0 Gastroesophageal reflux disease without esophagitis K21.9 Esophagitis presence: without esophagitis Time Spent (min) 40 Comment 25 minutes spent with patient and additional 15 minutes spent reviewing her records
[2025-04-19 11:21] VITALS: BP 132/66; PULSE 72; O2SAT 100; BMI 34.2
--- OUTSIDE RECORDS SUMMARY | 2025-04-19 13:11 | XMS_ITS | Clinical Summary ---
Author Organization [employer] Address [address] [place] [address] [address] [place] [address] Care Team Providers Care Materials And Corrosion Engineer Name Role Phone Unavailable Primary Care Provider [...]
== END 2025-04-19 12:09 | disposition home or self-care (01) ==
LOC: HO.HGI 11:17
PROVIDERS: PCP Internal Medicine; Visit Provider Nurse Practitioner Family
DX: R10.11 Right upper quadrant pain (principal); K59.04 Chronic idiopathic constipation; K76.0 Fatty (change of) liver, not elsewhere classified; K21.9 Gastro-esophageal reflux disease without esophagitis
CPT/HCPCS: 99214

== ENCOUNTER → 2025-04-19 11:17 | Outpatient (BNVA) | payer OTHER, SELFPAY | PROVIDERS: PCP Internal Medicine; Visit Provider Nurse Practitioner Family | DX: Z12.11 Encounter for screening for malignant neoplasm of colon (principal); K59.04 Chronic idiopathic constipation; R10.11 Right upper quadrant pain; K76.0 Fatty (change of) liver, not elsewhere classified; K21.9 Gastro-esophageal reflux disease without esophagitis | CPT/HCPCS: 99212 ==

== ENCOUNTER 2025-06-07 10:44 | Outpatient (AMB) | payer OTHER, SELFPAY ==
--- NOTE | 2025-06-07 10:52 | A.OFFVIS_ITS ---
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 Pot Runner concerns: occasional pain on her lower left pelvis. Admits to strong urine odor. History of constipation. Currently sexually active. Denies any vaginal dryness or irritation. Attempting to eat a healthy diet with calcium and vitamin D. Limited exercise with leg pain. Last pap smear; 2021, negative. Last mammogram; 2024. Colonoscopy is planned. [facility] Medical History Pelvic pain Hypertension Glaucoma suspect History of right bundle branch block Asthma Vitamin D deficiency Obesity (BMI 30-39.9) GERD (gastroesophageal reflux disease) Chronic radicular low back pain Migraine Anemia Surgical History History of esophagogastroduodenoscopy (EGD) Hx of colonoscopy History of lumpectomy of left breast History of cataract surgery History of section Family History Father Stroke Hypertension Mother Bladder cancer CVD (cardiovascular disease) Maternal Grandfather Heart attack Maternal Uncle Mouth cancer Paternal Aunt Brain cancer Maternal Aunt Heart attack Brother Heart attack Brother Heart attack Other Anxiety Mental health disorder Social History Household Members: Spouse and Children Housing: House Alcohol intake: never Patient Tobacco Use Status: Never used Tobacco Tobacco use type: Cigarette e-Cigarette/Vaping Use: Never Used Second Hand Smoke Exposure: No service: No Current occupational status: unemployed Current occupational exposures/hazards: No Sexual orientation: Straight/Heterosexual Gender identity: Female Cognitive needs: No Hearing needs: No Vision needs: Yes Female Reproductive History Menstrual Age of Menarche: 12 Total pregnancies: 3 Full term: 2 Number of Living Children: 2 Date of last pap smear: 08/08/21 (neg pap and hpv) Date of Mammogram: 08/28/24 (Birad 1) Review of Systems Const All systems reviewed & are unremarkable except as noted in HPI and below Reports as per HPI Eyes Reports no additional complaints ENT Reports no additional complaints Card Reports no additional complaints Resp Reports no additional complaints GI Reports as per HPI and Reports no additional complaints Reports as per HPI Musc Reports no additional complaints Skin/Breast Reports as per HPI Neuro Reports no additional complaints Psych Reports no additional complaints Endo Reports no additional complaints Chaim/Lymph Reports no additional complaints Aller/Immun Reports no additional complaints Physical Exam Vital Signs: Last Vital Signs BP 114/72 06/07/25 10:58 BMI result Body Mass Index 33.8 Const General: cooperative, healthy appearing, no acute distress, well developed and alert Orientation/consciousness: patient oriented x3 HEENT Head: Yes normal to inspection Eyes General: appearance normal, both eyes and all related structures Neck Neck: Yes normal visual inspection Thyroid: Thyroid normal Chest Chest palpation & inspection: normal inspection of the chest and other (no puckering, dimpling, peau de orange, retraction, discharge, masses) Breast/axilla inspection: normal inspection of the breasts Breast/axilla palpation: normal palpation of the breasts Resp Effort & Inspection: normal respiratory effort GI Inspection: Yes normal to inspection Palpation (GI): Soft to palpation Rectal Exam - Female: deferred General: Yes bladder normal to palpation External Female Exam: normal external appearance and normal appearance of the urethra Speculum Exam - Vagina: normal palpation and vagina atrophic Speculum Exam - Cervix: normal appearance of the cervix and normal palpation Bimanual exam- vagina & uterus: normal bimanual exam, normal palpation, uterine size normal, bladder normal to palpation, normal palpation and non-tender Bimanual Exam- Adnexa, other: no masses Skin General skin exam: no rashes or lesions noted Rashes: no rashes Neuro General: patient oriented x3 Cognition (Neuro): normal cognition Extrem General: Yes normal to inspection Psych Attitude: cooperative Thought process: Normal thought process present Results AMB Urinalysis, Automated UA Leukoctes 0 Becky/uL Last Edit by SHEMAR Orourke on 06/07/25 11:39 UA Nitrite Negative Last Edit by SHEMAR Orourke on 06/07/25 11:39 UA Urobilinogen 0 mg/dL Last Edit by SHEMAR Orourke on 06/07/25 11:3 9 UA Protein 0 mg/dL Last Edit by Doris Clay [facility] on 06/07/25 11:39 UA pH 7.0 Last Edit by Doris Clay [facility] on 06/07/25 11:39 UA Blood 0 Guido/uL Last Edit by Doris Clay [facility] on 06/07/25 11:39 UA Specific Aurora 1.015 Last Edit by Doris Clay [facility] on 06/07/25 11:39 UA Ketone Negative Last Edit by Doris Clay [facility] on 06/07/25 11:39 UA Bilirubin 0 mg/dL Last Edit by Doris Clay [facility] on 06/07/25 11:39 UA Glucose 0 mg/dL Last Edit by Doris Clay [facility] on 06/07/25 11:39 Assessment & Plan Assessment & Plan (1) Pelvic pain: Code(s): R10.20 - Pelvic and perineal pain unspecified side Category: Medical Plan: GC chlamydia and BV panel and UA clean-catch obtained. Pelvic ultrasound ordered, follow up pending results in person. Call sooner if there is any other concerns or changes. The patient expressed understanding and agreement with the plan of care. All of her questions and concerns were addressed to the best of my ability. (2) Encounter for well woman exam with routine gynecological exam: Code(s): Z01.419 - Encounter for gynecological examination (general) (routine) without abnormal findings Category: Medical Plan Discussed: Current recommendations for pap smears per ASCCP guidelines. Breast awareness, periodic self breast exams and yearly mammogram. Maintain a healthy lifestyle, well balanced diet including Calcium 1,200 mg and Vitamin D 600 IU daily, and routine exercise. Contact the office with any postmenopausal bleeding. Patient verbalizes understanding and agrees to the plan of care. She was given opportunity to ask questions and all questions were answered to the best of my ability. RTO in 1 year for annual guardian family member exam. This note is constructed using voice recognition software. While every effort has been made to ensure accuracy, telesales specialist errors may have been included. Orders: Orders Bacterial Vaginosis Panel Today N89.8 - Other specified noninflammatory disorders of vagina, R10.20 - Pelvic and perineal pain unspecified side CT NG by PCR Vag/Cerv Today N89.8 - Other specified noninflammatory disorders of vagina, R10.20 - Pelvic and perineal pain unspecified side AMB Urinalysis Automated Today R10.20 - Pelvic and perineal pain unspecified side US pelvic and transvaginal Today R10.20 - Pelvic and perineal pain unspecified side Coding Level of Care Code Est Pt Prev Care 40-64y(29398) Diagnoses Pelvic pain R10.20 Encounter for well woman exam with routine gynecological exam Z01.419
[2025-06-07 10:58] VITALS: BP 114/72; BMI 33.8
--- OUTSIDE RECORDS SUMMARY | 2025-06-07 16:13 | XMS_ITS | Patient Health Record ---
Author Organization [facility] Address [address] [place] [address] Care Team Providers Care Cover Making Machine Operator Name Role Phone Po Sisi SPANN Primary Care Provider Stveenson Simmons Unavailable [phone] Lorrie Martínez Unavailable Unavailable Allergies Allergen (clinical drug ingredient) Drug/Non Drug Allergy documented on EMR Reaction Allergy Type Onset Date Status Penicillin Unknown Drug Allergy Active Reason For Referral No Information Medications Medication SIG (Take, Route, Frequency, Duration) Notes Start Date End Date Status ProAir HFA 90MCG Act pham Fluticasone Propionate 50MCG Active Albuterol Sulfate .083% Active Flovent Diskus 220MG Active medroxyPROGESTERone Acetate 150MG Active SUMAtriptan Succinate Active Detrol LA 4MG Active clonazePAM 1MG Activ e Polyethyl Glycol-Propyl Glycol Active Meloxicam 15MG Activ e Colyte with Flavor Packs 240 GM Solution Reconstituted as directed Orally 1 time only; Duration: 1 dose 11/20/2011 Active Social History Social History Additional Details Category Social Info Options Details Miscellaneous: Marital status: Occupation: Not working now Section Notes: Nonsmoker; no alcohol Problems Problem Type SNOMED Code ICD Code Onset Dates Problem Status W/U Status Risk Notes Problem Constipation (64575845) Unspecified constipation (564.00) Active confirmed Problem Feces contents abnormal (795158594) Nonspecific abnormal finding in stool contents (792.1) Active confirmed Plan Of Treatment Future Test Test Name Order Date COLONOSCOPY 11/20/2011 Insurance Providers Payer Name Payer Address Payer Phone Subscriber Number Group Number Insured Name Patient Relationship to Insured Coverage Start Date Coverage End Date [facility] [address] [place], [place] [id number] KEE MAURO Self - patient is the insured [facility] [address] [place] [phone] [id number] MAUROASHLEY MARTINSDA Self - patient is the insured Medical (General) History Medical History History ICD Code Asthma Anemia-sees Dr. Martínez-received IV iron Migraines Denies RI,DM,CVA,renal disease Back pain Surgical History Surgery Date(Month/Year) Some type of surgery on her ovary Beign breast biopsy Eye
== END 2025-06-07 11:45 | disposition home or self-care (01) ==
LOC: HO.HWS 10:45
PROVIDERS: PCP Internal Medicine; Visit Provider Advanced Practice Midwife
DX: Z01.419 Encounter for gynecological examination (general) (routine) without abnormal findings (principal); R10.22 Pelvic and perineal pain left side
CPT/HCPCS: 99396; 99459

== ENCOUNTER 2025-06-07 10:44 | Outpatient (REF) | payer OTHER, SELFPAY ==
[2025-06-07 16:39] LABS: Bacterial Vaginosis PCR NEGATIVE (Negative); Candida Group PCR NOT DETECTED (Not Detect); Candida glab krusei PCR NOT DETECTED (Not Detect); Trichomonas vaginalis PCR NOT DETECTED (Not Detect)
[2025-06-07 17:11] LABS: CT PCR NOT DETECTED (Not Detect.); NG PCR NOT DETECTED (Not Detect.)
== END 2025-06-07 10:45 | disposition home or self-care (01) ==
LOC: HO.LAB 10:44
PROVIDERS: PCP Internal Medicine; Visit Provider Advanced Practice Midwife
DX: Z01.419 Encounter for gynecological examination (general) (routine) without abnormal findings (principal); R10.20 Pelvic and perineal pain unspecified side; Z20.2 Contact with and (suspected) exposure to infections with a predominantly sexual mode of transmission
CPT/HCPCS: 81003; 81515; 87491; 87591; 99396

== ENCOUNTER 2025-06-07 11:30 | Outpatient (REF) | payer OTHER, SELFPAY ==
--- OUTSIDE RECORDS SUMMARY | 2025-06-07 17:48 | XMS_ITS | Clinical Summary ---
Author Organization [facility] Address [address] [place] [address] Care Team Providers Care Tire Molder Name Role Phone Sisi Rodrigez MD Primary [...] 10/03/2018, 09/16, 09/23/2016 BMI CHECK/ADVISE 07/19/2024 INFLUENZA (#1) 2025 PNEUMOCOCCAL VACCINE FOR HIG H RISK PATIENTS (#1) 12/08/2027 Care Teams Tire Molder Relationship Specialty Start Date End Date Sisi Rodrigez MD PCP - General Internal Medicine 09/10/16
--- OUTSIDE RECORDS SUMMARY | 2025-06-07 17:48 | XMS_ITS | Encounter Summary ---
Author Organization [facility] Address [address] [place] [address] Care Team Providers Care Garment Liner Name Role Phone Sisi Rodrigez MD Primary Care Provider Unavailabl e Encounter Details Date Type Department Care Team Description 09/28/2016 Transfer Records Medical Records [address] [place] [id number] Abstract, Provider Social History Tobacco Use Types Packs/Day Years Used Date Smoking Tobacco: Never Assessed Sex Assigned at Date Recorded Not on file documented as of this encounter Plan of Treatment Not on file documented as of this encounter Visit Diagnoses Not on filedocumented in this encounter Care Teams Garment Liner Relationship Specialty Start Date End Date Sisi Rodrigez MD PCP - General Internal Medicine 09/10/16 documented as of this encounter
== END 2025-06-07 11:31 | disposition home or self-care (01) ==
LOC: HO.LNP 11:30
PROVIDERS: Visit Provider Advanced Practice Midwife
DX: Z13.89 Encounter for screening for other disorder (principal)

== ENCOUNTER 2025-07-03 08:01 | Day surgery (SDC) | payer OTHER, SELFPAY ==
--- OUTSIDE RECORDS SUMMARY | 2025-06-07 01:23 | XMS_ITS | Clinical Summary ---
Author Organization [employer] Address [address] [place] [address] [address] [place] [address] Care Team Providers Care Emr Trainer Name Role Phone Unavailable Primary Care Provider [...]
--- NOTE | 2025-06-29 10:14 | HO.ANESPROP2 ---
Documented by User: Cinthya Stovall NP 06/29/25 10:14 HPI - Anesthesia Eval Consult details Narrative: 64 yr old female for Upper Endoscopy and Colonoscopy [facility] Active Problems Active Problems: All Active Problems Encounter for well woman exam with routine gynecological exam (Acute) Pelvic pain (Acute) Leg cramps (Acute) Colon cancer screening (Acute) Lower respiratory infection (e.g., bronchitis, pneumonia, pneumonitis, pulmonitis) (Acute) Asthma exacerbation, mild (Acute) Otitis media, right (Acute) Chest pain (Acute) Low back pain (Acute) Hypersomnia (Acute) Neck pain (Acute) Annual physical exam (Acute) Fatty liver (Acute) RUQ abdominal pain (Acute) Right hand pain (Acute) Cervical cancer screening (Acute) Generalized anxiety disorder (Acute) Varicose veins of right lower extremity with inflammation (Acute) Trigger finger, right middle finger (Acute) Numbness and tingling of right hand (Acute) Patellofemoral arthritis of right knee (Acute) Varicose veins of bilateral lower extremities with pain (Acute) Trigger finger of right hand (Acute) Annual physical exam (Acute) Impaired fasting blood sugar (Acute) Breast cancer screening by mammogram (Acute) Knee pain, bilateral (Acute) Constipation (Acute) Asthma (Acute) Obesity (BMI 30-39.9) (Acute) GERD (gastroesophageal reflux disease) (Acute) Migraine (Acute) Past Medical History Medical History Pelvic pain Hypertension Glaucoma suspect History of right bundle branch block Asthma Vitamin D deficiency Obesity (BMI 30-39.9) GERD (gastroesophageal reflux disease) Chronic radicular low back pain Migraine Anemia Family History Family History Father Stroke Hypertension Mother Bladder cancer CVD (cardiovascular disease) Maternal Grandfather Heart attack Maternal Uncle Mouth cancer Paternal Aunt Brain cancer Maternal Aunt Heart attack Brother Heart attack Brother Heart attack Other Anxiety Mental health disorder Family history of problems with anesthesia: No Surgical History Surgical History History of esophagogastroduodenoscopy (EGD) Hx of colonoscopy History of lumpectomy of left breast History of cataract surgery History of section History of Problems with Anesthesia: No Social History Social History Household Members: Spouse and Children Housing: House Are you a primary rn complex care to a significant other at home: No Do you presently have visiting nurse or other home services: No Alcohol intake: never Patient Tobacco Use Status: Never used Tobacco Tobacco use type: Cigarette e-Cigarette/Vaping Use: Never Used Second Hand Smoke Exposure: No service: No Current occupational status: unemployed Current occupational exposures/hazards: No Sexual orientation: Straight/Heterosexual Gender identity: Female Cognitive needs: No Hearing needs: No Vision needs: Yes Meds Allergies Allergy/AdvReac Type Severity Reaction Status Date / Time fluticasone (From Flonase) Allergy Unknown glaucoma Verified 07/03/25 09:49 suspect Penicillins (PENICILLINS) Allergy Unknown RASH Verified 07/03/25 09:49 Home Medications ?Medication ?Instructions ?Recorded ?Confirmed ?Last Taken ?Type brimonidine 0.2 % eye drops 1 drp ophthalmic (eye) Q12H 04/01/21 07/03/25 06/07/22 History rizatriptan 5 mg tablet mg PO 07/01/22 04/11/25 Unknown History Assessment and Plan Final Anesthetic Review Family History of Problems with Anesthesia: No History of Problems with Anesthesia: No Documented by User: Nathan Villasenor MD 07/03/25 16:37 [facility] Past Medical History Medical History Pelvic pain Hypertension Glaucoma suspect History of right bundle branch block Asthma Vitamin D deficiency Obesity (BMI 30-39.9) GERD (gastroesophageal reflux disease) Chronic radicular low back pain Migraine Anemia Family History Family History Father Stroke Hypertension Mother Bladder cancer CVD (cardiovascular disease) Maternal Grandfather Heart attack Maternal Uncle Mouth cancer Paternal Aunt Brain cancer Maternal Aunt Heart attack Brother Heart attack Brother Heart attack Other Anxiety Mental health disorder Surgical History Surgical History History of esophagogastroduodenoscopy (EGD) Hx of colonoscopy History of lumpectomy of left breast History of cataract surgery History of section Social History Social History Household Members: Spouse and Children Housing: House Are you a primary rn complex care to a significant other at home: No Do you presently have visiting nurse or other home services: No Alcohol intake: never Patient Tobacco Use Status: Never used Tobacco Tobacco use type: Cigarette e-Cigarette/Vaping Use: Never Used Second Hand Smoke Exposure: No service: No Current occupational status: unemployed Current occupational exposures/hazards: No Sexual orientation: Straight/Heterosexual Gender identity: Female Cognitive needs: No Hearing needs: No Vision needs: Yes Meds Allergies Allergy/AdvReac Type Severity Reaction Status Date / Time fluticasone (From Flonase) Allergy Unknown glaucoma Verified 07/03/25 09:49 suspect Penicillins (PENICILLINS) Allergy Unknown RASH Verified 07/03/25 09:49 Home Medications ?Medication ?Instructions ?Recorded ?Confirmed ?Last Taken ?Type brimonidine 0.2 % eye drops 1 drp ophthalmic (eye) Q12H 04/01/21 07/03/25 06/07/22 History rizatriptan 5 mg tablet mg PO 07/01/22 04/11/25 Unknown History Assessment and Plan Assessment Anesthesia Assessment: Anesthesia Plan Discussed and Chart Reviewed Final Anesthetic Review NPO: Yes ASA Class: II Final Preanesthetic Review: No Changes in Pt Med Stat, Meds/Allgs Chart Reviewed, Consent Obtained/Reviewed and Anes Risks/Benef Reviewed Patient Risk: Low Procedure Risk: Low Anesthetic Plan Anesthetic Plan: MAC: Disposition: Standard PACU
[2025-07-03 08:57] VITALS: BMI 33.7
[2025-07-03] MEDS: Lactated Ringers 1,000 ML 100 ML IVCONT (09:18)
--- NOTE | 2025-07-03 09:32 | MHC.SHP ---
Pre-Procedural Eval Section A - 24 Hr Update-Section A only Date of Service: 07/03/25 Section B - Complete if H&P > 30 days Chief Complaint: Hx of polyps Details of Present Illness: Hypertension Glaucoma suspect History of right bundle branch block Asthma Vitamin D deficiency Obesity (BMI 30-39.9) GERD (gastroesophageal reflux disease) Chronic radicular low back pain Migraine Anemia Surgical History History of esophagogastroduodenoscopy (EGD) Hx of colonoscopy History of lumpectomy of left breast History of cataract surgery History of section Present Medications: see Short Stay Collaborative assessment Allergies: Allergies Allergy/AdvReac Type Severity Reaction Status Date / Time fluticasone (From Flonase) Allergy Unknown glaucoma Verified 06/07/25 10:58 suspect Penicillins (PENICILLINS) Allergy Unknown RASH Verified 06/07/25 10:58 Review of Systems Review of Systems Comment: Ten point ROS negative Exam Exam Comment: Gen appear: No acute distress HEENT: no icterus Chest: No overt resp distress Abd: soft, nontender, nondistended Psych: Stable affect, answering questions appropriately Neuro: A/Ox3 noted to move all extremities spontaneously Ext: no peripheral edema Plan Diagnosis/Plan: Unchanged I have reviewed the history and physical and performed a pertinent physical examination on my patient. No changes have occurred unless specified. Time Spent With Patient Time: Total time managing care of this patient today ____ minutes.
[2025-07-03 09:34] VITALS: BP 133/88; PULSE 70; RESP 18; TEMP 36.8; O2SAT 98
[2025-07-03 11:54] VITALS: BP 120/60; PULSE 77; RESP 16; TEMP 36.2; O2SAT 99
--- NOTE | 2025-07-03 11:56 | P.OPN-COLO_ITS ---
Colonoscopy Operative Note Operative Note Date of Service: 07/03/25 Narrative: Procedure: Upper endoscopy and colonoscopy Indication: GERD, hx of polyps Endoscopist: Karla Lang MD Anesthesia Provider: Dr Villasenor Anesthesia type: MAC Instrument: [id number] and [id number] EGD Procedure:?? The procedure, indications, preparation and potential complications were reviewed with the patient, who indicated understanding and gave written informed consent to proceed. The endoscope was introduced through the mouth, and advanced to the 2nd part of the duodenum. The mucosa was carefully examined on slow withdrawal of the endoscope. The patient tolerated the procedure well. There were no immediate complications.? EGD Findings:? * Esophagus:? Normal esophageal mucosa was noted. The Z-line was at 37 cm. * Stomach:? Mild erythema with light blue crest sign under NBI noted focally in antrum. Remaining mucosa appeared normal. Retroflexion was performed in the cardia. Cold forceps biopsy taken from the gastric antrum and body for histology. * Duodenum:? Normal duodenal mucosa. Colonoscopy Procedure:? The patient was then turned for the colonoscopy. A digital rectal exam was performed which was normal.? A distal attachment cap was affixed to the tip of the scope and the colonoscope was then inserted through the anus and advanced through the colon and advanced to the cecum at 80 cm.? Appendiceal orifice and ileocecal valve were identified. Mucosa was carefully examined under high definition white light as the instrument was slowly withdrawn in a retrograde panoramic fashion. Retroflexion was performed in rectum. The procedure was not difficult. The quality of the prep was BBPS: 2+3+3 = adequate Withdrawal time 19 minutes Limitations: No limitations Findings: Mucosa: Normal colon mucosa. Protruding lesions: * 4 sessile polyps of size 5-10 mm in sigmoid colon. Cold snare polypectomy was performed. The polyps were completely removed and retrieved. * Small internal hemorrhoids without stigmata of recent bleeding. Impression: 1. Normal esophagus 2. Gastritis (biopsy) 3. Normal duodenum 4. Normal colon mucosa 5. Total 4 polyps removed. 6. Internal hemorrhoids Recommendations:?? * Follow-up path results * Avoid NSAIDs * H Pylori treatment if biopsies + * If meets criteria for serrated polyposis syndrome based on cumulative polyp burden from this colo and previous colo, recommend repeat colonoscopy in 1 year.
[2025-07-03 12:09] VITALS: BP 129/59; PULSE 67; RESP 14; O2SAT 99
[2025-07-03 12:24] VITALS: BP 141/59; PULSE 60; RESP 16; TEMP 36.6; O2SAT 100
== END 2025-07-03 12:44 | disposition home or self-care (01) ==
PROVIDERS: PCP Internal Medicine; Visit Provider Internal Medicine
PROC: (CPT 45385; principal; 2025-07-03 10:20)
DX: Z12.11 Encounter for screening for malignant neoplasm of colon (principal); R10.11 Right upper quadrant pain; K59.04 Chronic idiopathic constipation; K21.9 Gastro-esophageal reflux disease without esophagitis; K64.8 Other hemorrhoids; D12.5 Benign neoplasm of sigmoid colon; K29.70 Gastritis, unspecified, without bleeding
CPT/HCPCS: 45385; 43239; 88305; 88313; 88341; 88342; J2003; J2704

== ENCOUNTER → 2025-07-03 08:01 | Outpatient (BNV) | payer OTHER, SELFPAY | PROVIDERS: PCP Internal Medicine; Visit Provider Internal Medicine | DX: Z12.11 Encounter for screening for malignant neoplasm of colon (principal); Z86.0100 Personal history of colon polyps, unspecified; K63.5 Polyp of colon; K64.8 Other hemorrhoids; K21.9 Gastro-esophageal reflux disease without esophagitis; K29.70 Gastritis, unspecified, without bleeding | CPT/HCPCS: 43239; 45385 ==

== ENCOUNTER 2025-07-11 12:56 | Outpatient (REF) | payer OTHER, SELFPAY ==
--- NOTE | ~2025-07-11 | US_ITS ---
EXAMINATION: US PELVIS CLINICAL INFORMATION: R10.20 - Pelvic and perineal pain unspecified side COMPARISON: None available. TECHNIQUE: Ultrasound of the pelvis is performed using both transabdominal and transvaginal transducers along with Doppler. Transvaginal imaging is performed due to inadequate visualization transabdominally. FINDINGS: Uterus: The uterus is anteverted and anteflexed and measures 7.3 x 2.5 x 3.6 cm (volume 34.4 ml). Endometrial echo complex measures 0.4 cm. Trace fluid within the endometrial cavity at the level of the fundus. Echogenic focus measuring 0.2 x 0.2 x 0.2 cm in the endometrium, probably calcification. Homogeneous myometrial echogenicity. No focal myometrial lesions demonstrated. Trace free fluid in the cervical canal. Adnexa: Right ovary measures 1.7 x 0.8 x 0.9 cm (volume of 0.6 ml). Unremarkable sonographic appearance. Left ovary measures 1.2 x 0.7 x 0.9 cm (volume of 0.4 ml). Unremarkable sonographic appearance. Pelvis: Trace free fluid in the cul-de-sac. US/US pelvic and transvaginal IMPRESSION: 1. Trace free fluid in the cul-de-sac. 2. No acute or concerning findings in the uterus or adnexal regions. Electronically signed by: Ole Danielle MD 07/11/2025 02:12 PM MIC
== END 2025-07-11 12:57 | disposition home or self-care (01) ==
LOC: HO.US 12:56
PROVIDERS: PCP Internal Medicine; Visit Provider Advanced Practice Midwife
DX: R10.20 Pelvic and perineal pain unspecified side (principal)
CPT/HCPCS: 76830; 76856

== ENCOUNTER → 2025-07-11 13:01 | Outpatient (BNV) | payer OTHER, SELFPAY | PROVIDERS: PCP Internal Medicine; Visit Provider Radiology Body Imaging | DX: R10.20 Pelvic and perineal pain unspecified side (principal) | CPT/HCPCS: 76830; 76856 ==